=== PATIENT | male | born 1990 | race Caucasian/White ===

== ENCOUNTER 2016-09-27 00:55 | Inpatient (IN) ==
--- NOTE | 2016-09-27 01:43 | Emergency Department Note ---
Disposition Clinical Impression: Depression, Suicidal ideation, Noncompliance with medication regimen Disposition: Still a Patient Condition: Fair Instructions: Depression (ED), Suicide Prevention for Adults (ED), Anxiety (ED) Referrals: NO,PCP [Primary Care Provider] - Forms: ED Satisfaction Letter Time of Disposition: 05:55 Psych HPI - General Chief Complaint: ED Psychiatric Symptoms Stated Complaint: si Time Seen by Provider: 09/27/16 01:12 Source: patient Mode of arrival: private vehicle Limitations: no limitations Nursing Notes Reviewed: Yes Vital Signs Reviewed: Yes - History of Present Illness HPI Narrative: 25-year-old male presents to the emergency department with complaint of depression and suicidal ideation. Patient states "I just started thinking about a life and outlined it anymore." He denies any recent head injury. He denies any recent trauma. Pt complaint: suicidal ideation, feels depressed If medical clearance, reason: psychiatric condition Onset (ago): hour(s) Duration: constant, getting worse History of similar episodes: Yes Improves with: none Worsens with: none Associated Psychiatric Symptoms: depression, suicidal ideation Associated symptoms: Reports: denies other symptoms Traumatic symptoms: denies traumatic injury Treatments prior to arrival: none Self harm or harm to others: admits thoughts of self harm, denies having a plan - Related Data Home Medications Medication Instructions Recorded Confirmed Depakote 06/23/16 06/23/16 Previous Rx's Medication Instructions Recorded Sertraline [Zoloft] 50 mg PO DAILY #30 tablet 10/08/15 Ibuprofen [Motrin] 800 mg PO Q8HR PRN #30 tablet 06/23/16 Ondansetron HCl [Zofran] 4 mg PO Q6H #15 tablet 09/17/16 Dicyclomine [Bentyl] 10 mg PO QID PRN #20 capsule 09/23/16 Polyethylene Glycol 3350 17 gm PO ONCE PRN #3 powd.pack 09/23/16 Allergies Allergy/AdvReac Type Severity Reaction Status Date / Time No Known Allergies Allergy Verified 04/22/16 10:36 All systems ED: reviewed and negative except as stated. Constitutional: Denies: fever, chills Cardiovascular: Denies: chest pain Respiratory: Denies: cough, dyspnea Gastrointestinal: Denies: abdominal pain, nausea, vomiting Musculoskeletal: Denies: back pain, neck pain Integumentary: Denies: rash, abrasion, lesions Neurological: Denies: headache Psychiatric: Reports: anxiety, depression, suicidal thoughts. Denies: auditory hallucinations, visual hallucinations Past Medical History - Past Medical History Attestation: Yes The following information was validated with the patient. Source: patient, nursing notes reviewed Medical history: Reports: hypertension, other Surgical history: Reports: no surgical history Psychiatric history: Reports: anxiety, bipolar, depression, panic disorder - Social History Smoking Status: Current every day smoker Smokeless Tobacco Status: No Alcohol use: Reports: none Drug use: Reports: none Physical Exam - General Limitations: no limitations General appearance: alert, in no apparent distress - Head Head exam: atraumatic, normocephalic, normal inspection - Eye Eye exam: Present: normal appearance, PERRL - Neck Neck exam: Present: normal inspection, full ROM, trachea midline - Chest Chest inspection: Present: normal inspection, symmetric chest wall rise - Respiratory Respiratory exam: Present: normal lung sounds bilaterally. Absent: respiratory distress - Cardiovascular Cardiovascular exam: Present: regular rate, normal rhythm, normal heart sounds - Extremities Exam Extremities exam: Present: normal inspection, full ROM - Back Exam Back exam: Present: normal inspection, full ROM. Absent: tenderness - Neurological Exam Neurological exam: Present: alert, oriented X3 - Psychiatric Psychiatric exam: Present: depressed, flat affect, suicidal ideation. Absent: agitated, homicidal ideation - Skin Skin exam: Present: warm, dry, intact, normal color Course - Reevaluation(s) Reevaluation #1: Patient continues to rest comfortably in no acute distress. Depakote level was drawn. 1A is currently working on placement for the patient. Time: 05:55 Vital Signs Temperature 98.1 F 09/27/16 01:01 Pulse Rate 97 09/27/16 01:01 Respiratory Rate 18 09/27/16 01:01 Blood Pressure 120/84 09/27/16 01:01 O2 Sat by Pulse Oximetry 96 09/27/16 01:01 Temperature 98.1 F 09/27/16 01:01 Pulse Rate 97 09/27/16 01:01 Respiratory Rate 18 09/27/16 01:01 Blood Pressure 120/84 09/27/16 01:01 O2 Sat by Pulse Oximetry 96 09/27/16 01:01 Oxygen Delivery Oxygen Delivery Room Air Psych - Lab Data Lab results reviewed: Yes I reviewed the patient's lab results. Result diagrams: 09/27/16 01:37 09/27/16 01:37 Lab Results 09/27/16 09/27/16 09/27/16 Range/Units 01:37 01:37 01:50 WBC 12.2 H (4.3-11.1) K/mcL RBC 5.10 (4.19-5.50) M/mcL Hgb 15.0 (12.9-16.9) g/dL Hct 44.9 (37.5-50.1) % MCV 88.0 (83.0-100.0) fL MCH 29.4 (28.0-33.3) pg MCHC 33.4 (31.6-35.5) g/dL RDW 11.9 (11.5-14.5) % Plt Count 275 (140-400) K/mcL MPV 10.9 (9.4-12.4) fL Immature Gran % 0.6 (0-4) % Seg Neutrophils % 54.4 % Lymphocytes % 31.0 % Monocytes % 7.1 % Eosinophils % 6.0 % Basophils % 0.9 % Neutrophils # 6.6 (1.6-8.9) K/mcL Lymphocytes # 3.8 (0.6-4.6) K/mcL Monocytes # 0.9 (0.0-1.3) K/mcL Eosinophils # 0.7 H (0.0-0.6) K/mcL Basophils # 0.1 (0.0-0.2) K/mcL Immature Plt Fraction 5.8 (1.1-6.1) % Sodium 138 (136-145) mEq/L Potassium 3.5 (3.5-4.5) mEq/L Chloride 106 (98-109) mEq/L Carbon Dioxide 22 (19-29) mEq/L BUN 11 (8-26) mg/dL Creatinine 0.96 (0.72-1.25) mg/dL Est GFR ( Amer) > 60 (> 60) Est GFR (Non-Af Amer) > 60 (> 60) BUN/Creatinine Ratio 11 (6-26) Glucose 93 (70-99) mg/dL Calculated Osmolality 285 (280-300) Calcium 9.5 (8.6-10.8) mg/dL Urine Color Yellow (Yellow) Urine Clarity Clear (Clear) Urine pH 5.5 (5.0-8.0) pH Units Ur Specific [place] > 1.030 H (1.010-1.025) Urine Protein Negative (Neg-Trace) mg/dL Urine Glucose (UA) Normal (Normal) mg/dL Urine Ketones Trace H (Negative) mg/dL Urine Blood Negative (Negative) Urine Nitrite Negative (Negative) Urine Bilirubin Small H (Negative) Urine Urobilinogen Normal (Normal) mg/dL Ur Leukocyte Esterase Negative (Negative) Salicylates < 5.0 L (15-30) mg/dL Urine Opiates Screen (Acnwpd=493) ng/mL Acetaminophen < 1.0 L (10-30) mcg/mL Ur Barbiturates Screen (Mtjwkt=893) ng/mL Valproic Acid < 2.00 L (50-100) mcg/mL Ur Phencyclidine Scrn (Cutoff=25) ng/mL Ur Amphetamines Screen (Apyjth=4253) ng/mL U Benzodiazepines Scrn (Rkbnas=052) ng/mL Urine Cocaine Screen (Cutoff= 300) ng/mL U Marijuana (THC) Screen (Cutoff = 50) ng/mL Ethyl Alcohol < 10 (0-10) mg/dL 09/27/16 Range/Units 01:50 WBC (4.3-11.1) K/mcL RBC (4.19-5.50) M/mcL Hgb (12.9-16.9) g/dL Hct (37.5-50.1) % MCV (83.0-100.0) fL MCH (28.0-33.3) pg MCHC (31.6-35.5) g/dL RDW (11.5-14.5) % Plt Count (140-400) K/mcL MPV (9.4-12.4) fL Immature Gran % (0-4) % Seg Neutrophils % % Lymphocytes % % Monocytes % % Eosinophils % % Basophils % % Neutrophils # (1.6-8.9) K/mcL Lymphocytes # (0.6-4.6) K/mcL Monocytes # (0.0-1.3) K/mcL Eosinophils # (0.0-0.6) K/mcL Basophils # (0.0-0.2) K/mcL Immature Plt Fraction (1.1-6.1) % Sodium (136-145) mEq/L Potassium (3.5-4.5) mEq/L Chloride (98-109) mEq/L Carbon Dioxide (19-29) mEq/L BUN (8-26) mg/dL Creatinine (0.72-1.25) mg/dL Est GFR ( Amer) (> 60) Est GFR (Non-Af Amer) (> 60) BUN/Creatinine Ratio (6-26) Glucose (70-99) mg/dL Calculated Osmolality (280-300) Calcium (8.6-10.8) mg/dL Urine Color (Yellow) Urine Clarity (Clear) Urine pH (5.0-8.0) pH Units Ur Specific [place] (1.010-1.025) Urine Protein (Neg-Trace) mg/dL Urine Glucose (UA) (Normal) mg/dL Urine Ketones (Negative) mg/dL Urine Blood (Negative) Urine Nitrite (Negative) Urine Bilirubin (Negative) Urine Urobilinogen (Normal) mg/dL Ur Leukocyte Esterase (Negative) Salicylates (15-30) mg/dL Urine Opiates Screen Negative (Ktddpv=073) ng/mL Acetaminophen (10-30) mcg/mL Ur Barbiturates Screen Negative (Tnvcsl=651) ng/mL Valproic Acid (50-100) mcg/mL Ur Phencyclidine Scrn Negative (Cutoff=25) ng/mL Ur Amphetamines Screen Negative (Kuywrh=1787) ng/mL U Benzodiazepines Scrn Negative (Zofkug=545) ng/mL Urine Cocaine Screen Negative (Cutoff= 300) ng/mL U Marijuana (THC) Screen Negative (Cutoff = 50) ng/mL Ethyl Alcohol (0-10) mg/dL Psychiatric Medical Clearance - Medical Clearance Checklist Medical History: No Social History Section defined Current Vitals: Last Vital Signs Temp 98.1 F 09/27/16 01:01 Pulse 97 09/27/16 01:01 Resp 18 09/27/16 01:01 BP 120/84 09/27/16 01:01 Pulse Ox 96 09/27/16 01:01 Psychiatric Lab Panel: Drug Levels and Toxicity 09/27/16 09/27/16 01:37 01:50 Urine Opiates Screen Negative Acetaminophen < 1.0 L Ur Barbiturates Screen Negative Ur Phencyclidine Scrn Negative Ur Amphetamines Screen Negative U Benzodiazepines Scrn Negative Urine Cocaine Screen Negative U Marijuana (THC) Screen Negative Ethyl Alcohol < 10 Abnormal Labs: Abnormal lab results WBC 12.2 K/mcL (4.3-11.1) H 09/27/16 01:37 Eosinophils # 0.7 K/mcL (0.0-0.6) H 09/27/16 01:37 Ur Specific [place] > 1.030 (1.010-1.025) H 09/27/16 01:50 Urine Ketones Trace mg/dL (Negative) H 09/27/16 01:50 Urine Bilirubin Small (Negative) H 09/27/16 01:50 Salicylates < 5.0 mg/dL (15-30) L 09/27/16 01:37 Acetaminophen < 1.0 mcg/mL (10-30) L 09/27/16 01:37 Valproic Acid < 2.00 mcg/mL (50-100) L 09/27/16 01:37 Statement of Medical Clearance: I have evaluated the patient, reviewed diagnostic information, and certify that the patient's medical condition is sufficiently stable that transfer to the psychiatric unit does not pose a significant risk of deterioration. Attestation Statement - Attestation Attestation: I personally interviewed and examined this patient and my medical decision- making was reviewed with the DELANEY Reid Chong. I agree with the documented findings, disposition and treatment plan as described except to the extent set forth below. Patient is 25-year-old white male with a history of bipolar disorder, depression , prior suicidal ideation with attempt is been hospitalized in the past for similar complaints. Patient is here stating he was noncompliant with his medication rather regimen and has been having worsening depression and suicidal ideation. Patient denies any attempts to harm himself, no ingestions, no other physical complaints. Agree with patient's physical exam findings as documented. Patient's labs unremarkable. Patient is medically cleared for further psychiatric evaluation and treatment. One a consult in to see patient who agreed with admission and will plan to place the patient as there is currently no male bed available here at [facility]. They anticipate morning discharges to place the patient here.
[2016-09-27 01:49] LABS: Basophils # 0.1 K/mcL (0.0-0.2); Basophils % 0.9 %; Eosinophils # 0.7 K/mcL (0.0-0.6); Hematocrit 44.9 % (37.5-50.1); Immature Granulocytes % 0.6 % (0-4); Immature Platelets 5.8 % (1.1-6.1); Lymphocytes # 3.8 K/mcL (0.6-4.6); Mean Corpuscular HGB Conc 33.4 g/dL (31.6-35.5); Mean Corpuscular Hemoglobin 29.4 pg (28.0-33.3); Mean Platelet Volume 10.9 fL (9.4-12.4); Monocytes # 0.9 K/mcL (0.0-1.3); Monocytes % 7.1 %; Neutrophils # 6.6 K/mcL (1.6-8.9); Platelet Count 275 K/mcL (140-400); Red Cell Distribution Width 11.9 % (11.5-14.5); Segmented Neutrophils % 54.4 %
[2016-09-27 01:59] LABS: Bilirubin,Urine Small (Negative); Blood,Urine Negative (Negative); Clarity,Urine Clear (Clear); Color,Urine Yellow (Yellow); Glucose,Urine (UA) Normal (Normal); Ketones,Urine Trace mg/dL (Negative); Leukocyte Esterase,Urine Negative (Negative); Nitrite,Urine Negative (Negative); PH,Urine 5.5 pH Units (5.0-8.0); Protein,Urine Negative (Neg-Trace); Specific Gravity,Urine > 1.030 (1.010-1.025); Urobilinogen,Urine Normal (Normal)
[2016-09-27 02:03] LABS: BUN/Creatinine Ratio 11 (6-26); Blood Urea Nitrogen 11 mg/dL (8-26); Calcium 9.5 mg/dL (8.6-10.8); Carbon Dioxide 22 mEq/L (19-29); Chloride 106 mEq/L (98-109); Glucose 93 mg/dL (70-99); Osmolality,Calculated 285 (280-300); Potassium 3.5 mEq/L (3.5-4.5); Sodium 138 mEq/L (136-145); eGFR For African Americans > 60 (> 60); eGFR For Non-African Americans > 60 (> 60)
[2016-09-27 02:05] LABS: Acetaminophen < 1.0 mcg/mL (10-30); Ethanol < 10 mg/dL (0-10); Salicylate < 5.0 mg/dL (15-30)
[2016-09-27 02:05] LABS: Amphetamine Screen,Urine Negative ng/mL (Cutoff=1000); Barbiturate Screen,Urine Negative ng/mL (Cutoff=200); Benzodiazepines Screen,Urine Negative ng/mL (Cutoff=200); Cannabinoid Screen,Urine Negative ng/mL (Cutoff = 50); Cocaine Screen,Urine Negative ng/mL (Cutoff= 300); Opiate Screen,Urine Negative ng/mL (Cutoff=300); Phencyclidine Screen,Urine Negative ng/mL (Cutoff=25)
[2016-09-27 04:58] LABS: Valproate < 2.00 mcg/mL (50-100)
--- NOTE | 2016-09-27 07:19 | Emergency Department Note ---
Disposition Clinical Impression: Suicidal ideation, Noncompliance with medication regimen Depression Qualifiers: Depression Type: unspecified Qualified Code(s): F32.9 - Major depressive disorder, single episode, unspecified Disposition: Admitted As Inpatient Condition: Fair Instructions: Depression (ED), Suicide Prevention for Adults (ED), Anxiety (ED) Referrals: NO,PCP [Primary Care Provider] - Forms: ED Satisfaction Letter General Adult HPI - General Chief complaint: ED Psychiatric Symptoms Stated complaint: si Time Seen by Provider: 09/27/16 01:12 Source: patient Mode of arrival: private vehicle Limitations: no limitations - History of Present Illness Pain Scale: 0 - Related Data Home Medications Medication Instructions Recorded Confirmed Aripiprazole Lauroxil [Aristada] 882 mg IM QMONTH 09/27/16 09/27/16 Cetirizine HCl [All Day Allergy] 10 mg PO QPM 09/27/16 09/27/16 Divalproex (24 HR) [Depakote ER 1,000 mg PO HS 09/27/16 09/27/16 (24 HR)] Lisinopril 2.5 mg PO QAM 09/27/16 09/27/16 Loratadine [Allergy Relief] 10 mg PO QAM 09/27/16 09/27/16 Quetiapine Fumarate [SEROquel] 25 mg PO HS 09/27/16 09/27/16 Ranitidine HCl [Acid Mechanic Foreman] 150 mg PO BID 09/27/16 09/27/16 hydrOXYzine pamoate [HydrOXYzine 25 mg PO TID PRN 09/27/16 09/27/16 Pamoate] Allergies Allergy/AdvReac Type Severity Reaction Status Date / Time No Known Allergies Allergy Verified 04/22/16 10:36 Constitutional: Denies: fever, chills Cardiovascular: Denies: chest pain Respiratory: Denies: cough, dyspnea Gastrointestinal: Denies: abdominal pain, nausea, vomiting Musculoskeletal: Denies: back pain, neck pain Integumentary: Denies: rash, abrasion, lesions Neurological: Denies: headache Psychiatric: Reports: anxiety, depression, suicidal thoughts. Denies: auditory hallucinations, visual hallucinations Past Medical History - Past Medical History Medical history: Reports: hypertension, other Surgical history: Reports: no surgical history Psychiatric history: Reports: anxiety, bipolar, depression, panic disorder - Social History Smoking Status: Current every day smoker Smokeless Tobacco Status: No Alcohol use: Reports: none Drug use: Reports: none Physical Exam - General Limitations: no limitations General appearance: alert, in no apparent distress Course Vital Signs Temperature 98.1 F 09/27/16 01:01 Pulse Rate 97 09/27/16 01:01 Respiratory Rate 18 09/27/16 01:01 Blood Pressure 120/84 09/27/16 01:01 O2 Sat by Pulse Oximetry 96 09/27/16 01:01 Temperature 98.0 F 09/27/16 07:30 Pulse Rate 69 09/27/16 07:30 Respiratory Rate 16 09/27/16 07:30 Blood Pressure 133/82 09/27/16 07:30 O2 Sat by Pulse Oximetry 99 09/27/16 07:30 Oxygen Delivery Oxygen Delivery Room Air Medical Decision Making - Lab Data Result diagrams: 09/27/16 01:37 09/27/16 01:37 Lab Results 09/27/16 09/27/16 09/27/16 Range/Units 01:37 01:37 01:50 WBC 12.2 H (4.3-11.1) K/mcL RBC 5.10 (4.19-5.50) M/mcL Hgb 15.0 (12.9-16.9) g/dL Hct 44.9 (37.5-50.1) % MCV 88.0 (83.0-100.0) fL MCH 29.4 (28.0-33.3) pg MCHC 33.4 (31.6-35.5) g/dL RDW 11.9 (11.5-14.5) % Plt Count 275 (140-400) K/mcL MPV 10.9 (9.4-12.4) fL Immature Gran % 0.6 (0-4) % Seg Neutrophils % 54.4 % Lymphocytes % 31.0 % Monocytes % 7.1 % Eosinophils % 6.0 % Basophils % 0.9 % Neutrophils # 6.6 (1.6-8.9) K/mcL Lymphocytes # 3.8 (0.6-4.6) K/mcL Monocytes # 0.9 (0.0-1.3) K/mcL Eosinophils # 0.7 H (0.0-0.6) K/mcL Basophils # 0.1 (0.0-0.2) K/mcL Immature Plt Fraction 5.8 (1.1-6.1) % Sodium 138 (136-145) mEq/L Potassium 3.5 (3.5-4.5) mEq/L Chloride 106 (98-109) mEq/L Carbon Dioxide 22 (19-29) mEq/L BUN 11 (8-26) mg/dL Creatinine 0.96 (0.72-1.25) mg/dL Est GFR ( Amer) > 60 (> 60) Est GFR (Non-Af Amer) > 60 (> 60) BUN/Creatinine Ratio 11 (6-26) Glucose 93 (70-99) mg/dL Calculated Osmolality 285 (280-300) Calcium 9.5 (8.6-10.8) mg/dL Urine Color Yellow (Yellow) Urine Clarity Clear (Clear) Urine pH 5.5 (5.0-8.0) pH Units Ur Specific [place] > 1.030 H (1.010-1.025) Urine Protein Negative (Neg-Trace) mg/dL Urine Glucose (UA) Normal (Normal) mg/dL Urine Ketones Trace H (Negative) mg/dL Urine Blood Negative (Negative) Urine Nitrite Negative (Negative) Urine Bilirubin Small H (Negative) Urine Urobilinogen Normal (Normal) mg/dL Ur Leukocyte Esterase Negative (Negative) Salicylates < 5.0 L (15-30) mg/dL Urine Opiates Screen (Afqcvk=166) ng/mL Acetaminophen < 1.0 L (10-30) mcg/mL Ur Barbiturates Screen (Qnvvau=189) ng/mL Valproic Acid < 2.00 L (50-100) mcg/mL Ur Phencyclidine Scrn (Cutoff=25) ng/mL Ur Amphetamines Screen (Oryciy=5126) ng/mL U Benzodiazepines Scrn (Znuazg=022) ng/mL Urine Cocaine Screen (Cutoff= 300) ng/mL U Marijuana (THC) Screen (Cutoff = 50) ng/mL Ethyl Alcohol < 10 (0-10) mg/dL 09/27/16 Range/Units 01:50 WBC (4.3-11.1) K/mcL RBC (4.19-5.50) M/mcL Hgb (12.9-16.9) g/dL Hct (37.5-50.1) % MCV (83.0-100.0) fL MCH (28.0-33.3) pg MCHC (31.6-35.5) g/dL RDW (11.5-14.5) % Plt Count (140-400) K/mcL MPV (9.4-12.4) fL Immature Gran % (0-4) % Seg Neutrophils % % Lymphocytes % % Monocytes % % Eosinophils % % Basophils % % Neutrophils # (1.6-8.9) K/mcL Lymphocytes # (0.6-4.6) K/mcL Monocytes # (0.0-1.3) K/mcL Eosinophils # (0.0-0.6) K/mcL Basophils # (0.0-0.2) K/mcL Immature Plt Fraction (1.1-6.1) % Sodium (136-145) mEq/L Potassium (3.5-4.5) mEq/L Chloride (98-109) mEq/L Carbon Dioxide (19-29) mEq/L BUN (8-26) mg/dL Creatinine (0.72-1.25) mg/dL Est GFR ( Amer) (> 60) Est GFR (Non-Af Amer) (> 60) BUN/Creatinine Ratio (6-26) Glucose (70-99) mg/dL Calculated Osmolality (280-300) Calcium (8.6-10.8) mg/dL Urine Color (Yellow) Urine Clarity (Clear) Urine pH (5.0-8.0) pH Units Ur Specific [place] (1.010-1.025) Urine Protein (Neg-Trace) mg/dL Urine Glucose (UA) (Normal) mg/dL Urine Ketones (Negative) mg/dL Urine Blood (Negative) Urine Nitrite (Negative) Urine Bilirubin (Negative) Urine Urobilinogen (Normal) mg/dL Ur Leukocyte Esterase (Negative) Salicylates (15-30) mg/dL Urine Opiates Screen Negative (Xrobhs=678) ng/mL Acetaminophen (10-30) mcg/mL Ur Barbiturates Screen Negative (Rhqiig=065) ng/mL Valproic Acid (50-100) mcg/mL Ur Phencyclidine Scrn Negative (Cutoff=25) ng/mL Ur Amphetamines Screen Negative (Rdrtcm=4969) ng/mL U Benzodiazepines Scrn Negative (Estfxd=221) ng/mL Urine Cocaine Screen Negative (Cutoff= 300) ng/mL U Marijuana (THC) Screen Negative (Cutoff = 50) ng/mL Ethyl Alcohol (0-10) mg/dL Attestation Statement - Attestation Attestation: Care assumed from Dr. Paulina Chong at 7 AM pending psychiatric placement/ admission. Patient sleeping on exam. The patient was cleared medically by the previous team 13:29: 1A accepts admission
[2016-09-27] MEDS ORDERED: MOM Conc 10 ML UD.LIQ PO PRN (15:41)
[2016-09-27] MEDS ORDERED: Haloperidol Lactate 5 MG/ML VIAL IM PRN (15:41)
[2016-09-27] MEDS ORDERED: *HR* LORazepam 2 MG/ML VIAL IM PRN (15:41)
[2016-09-27] MEDS ORDERED: (Aripiprazole Lauroxil [Aristada] 882 MG) IM SCH (16:00)
[2016-09-27] MEDS: Loratadine 10 MG TABLET PO SCH (17:20)
[2016-09-27] MEDS: Mag Hydrox/Al Hydrox/Simeth 30 ML UDC PO PRN (17:20)
[2016-09-27] MEDS: Divalproex (24 HR) 500 MG TABLET PO SCH (21:39)
[2016-09-27] MEDS: Famotidine 20 MG TABLET PO SCH (21:40)
[2016-09-27] MEDS: traZODone 50 MG TABLET PO PRN (21:40)
[2016-09-27] MEDS: Acetaminophen 325 MG TABLET PO PRN (21:40)
[2016-09-27] MEDS: Nicotine 2 MG GUM BC PRN (21:41)
[2016-09-28] MEDS: Famotidine 20 MG TABLET PO SCH ×2 (08:58→20:41)
[2016-09-28] MEDS: Loratadine 10 MG TABLET PO SCH ×2 (08:58→18:22)
[2016-09-28] MEDS: Nicotine 2 MG GUM BC PRN ×3 (09:10→20:50)
--- NOTE | 2016-09-28 10:24 | Psychiatry History & Physical ---
Date of Encounter: 09/28/16 Time of Encounter: 10:00 History of Present Illness Patient Stated Chief Complaint: Suicidal ideation Medicare Admission Attestation: For traditional Medicare patients the provided hospital inpatient services are reasonable and necessary and in the case of services not specified as inpatient -only under 42 CFR 419.22 (n), that they are appropriately provided as inpatient services in accordance 42 CFR 412.3. For Critical [facility] the patient may reasonably be expected to be discharged or transferred to a hospital within 96 hours after admission to the Critical [facility] Hospital. Admitted From: Emergency Dept History of Present Illness: Mr. Bass is a 25 year old male admitted from the emergency department for suicidal ideation. Patient stopped taking his medication for the last several months prior to admission and was having increasing symptoms of depression and paranoia and anxiety he was having suicidal ideation with plan to electrocute himself in the bathtub. Patient had long history of psychiatric treatment for depression and bipolar disorder and anxiety. He is followed as outpatient [facility]. Patient lives alone and self isolated and he is single never and has no children and socially shy. Patient smoke one pack per day cigarettes, consuming large amount caffeine and energy drinks and uses alcohol occasionally. UDS was negative for drugs. His Depakote level was undetected indicating noncompliance with medication. Patient complained of hypersomnia and depression like a motivation. Past Med Surg Social Fam HX - Past Medical History Medical history: hypertension, other - Past Psychiatric History Psychiatric history: Reports: anxiety, bipolar, depression, prior suicide attempt, previous psychiatric hospitalization Past psychiatric history details: Most recent hospitalization at [facility] a few months ago. - Past Surgical History Surgical History: no surgical history - Social History Smoking Status: Current every day smoker Smokeless Tobacco Status: No Alcohol use: none Drug use: none Medications & Allergies Aripiprazole Lauroxil [Aristada] 882 mg IM QMONTH 09/27/16 [History] Cetirizine HCl [All Day Allergy] 10 mg PO QPM 09/27/16 [History] Divalproex (24 HR) [Depakote ER (24 HR)] 1,000 mg PO HS 09/27/16 [History] Lisinopril 2.5 mg PO QAM 09/27/16 [History] Loratadine [Allergy Relief] 10 mg PO QAM 09/27/16 [History] Quetiapine Fumarate [SEROquel] 25 mg PO HS 09/27/16 [History] Ranitidine HCl [Acid Chief Radiology] 150 mg PO BID 09/27/16 [History] hydrOXYzine pamoate [HydrOXYzine Pamoate] 25 mg PO TID PRN 09/27/16 [History] Allergies No Known Allergies Allergy (Verified 04/22/16 10:36) Review of Systems Psychiatric: Reports: depression, anxiety, abnormal sleep pattern, suicidal ideation Mental Status Exam Patient orientation: Yes Person, Yes Time, Yes Place Level of alertness: Alert, Sedated Patient appearance: Appropriate, Well Groomed, Unkempt, Disheveled Behavior: calm, cooperative, guarded, withdrawn Psychomotor activity: Slowed Eye contact: Minimal Contact Mood description: Depressed Affect description: congruent with mood, constricted, blunted, flat, anxious Speech pattern: Normal rate, Normal rhythm, Normal tone, Clear, Slowed Speech volume: Soft/Quiet Thought process: Linear, Goal Oriented, Thought Blocking, Slowed Thinking Thought content: Yes Suicidal ideation, No Homicidal ideation, No Overt delusions, Yes Preoccupation, Yes Paranoid delusion, Yes Obsessive thoughts Perceptual disturbances: Yes Auditory hallucinations, No Visual hallucinations Attention span: Unable to Focus Memory description: Grossly Intact Patient reliability: Reliable Historian Intelligence estimate: Average Judgment: Limited Insight: Partial Results - Vital Signs Vital signs: Temp Pulse Resp BP Pulse Ox 97.4 F L 77 16 150/82 99 09/28/16 09:00 09/28/16 09:00 09/28/16 09:00 09/28/16 09:00 09/27/16 07:30 - Labs Labs: Laboratory Last Values WBC 12.2 K/mcL (4.3-11.1) H 09/27/16 01:37 RBC 5.10 M/mcL (4.19-5.50) 09/27/16 01:37 Hgb 15.0 g/dL (12.9-16.9) 09/27/16 01:37 Hct 44.9 % (37.5-50.1) 09/27/16 01:37 MCV 88.0 fL (83.0-100.0) 09/27/16 01:37 MCH 29.4 pg (28.0-33.3) 09/27/16 01:37 MCHC 33.4 g/dL (31.6-35.5) 09/27/16 01:37 RDW 11.9 % (11.5-14.5) 09/27/16 01:37 Plt Count 275 K/mcL (140-400) 09/27/16 01:37 MPV 10.9 fL (9.4-12.4) 09/27/16 01:37 Immature Gran % 0.6 % (0-4) 09/27/16 01:37 Seg Neutrophils % 54.4 % 09/27/16 01:37 Lymphocytes % 31.0 % 09/27/16 01:37 Monocytes % 7.1 % 09/27/16 01:37 Eosinophils % 6.0 % 09/27/16 01:37 Basophils % 0.9 % 09/27/16 01:37 Neutrophils # 6.6 K/mcL (1.6-8.9) 09/27/16 01:37 Lymphocytes # 3.8 K/mcL (0.6-4.6) 09/27/16 01:37 Monocytes # 0.9 K/mcL (0.0-1.3) 09/27/16 01:37 Eosinophils # 0.7 K/mcL (0.0-0.6) H 09/27/16 01:37 Basophils # 0.1 K/mcL (0.0-0.2) 09/27/16 01:37 Immature Plt Fraction 5.8 % (1.1-6.1) 09/27/16 01:37 Sodium 138 mEq/L (136-145) 09/27/16 01:37 Potassium 3.5 mEq/L (3.5-4.5) 09/27/16 01:37 Chloride 106 mEq/L (98-109) 09/27/16 01:37 Carbon Dioxide 22 mEq/L (19-29) 09/27/16 01:37 BUN 11 mg/dL (8-26) 09/27/16 01:37 Creatinine 0.96 mg/dL (0.72-1.25) 09/27/16 01:37 Est GFR ( Amer) > 60 (> 60) 09/27/16 01:37 Est GFR (Non-Af Amer) > 60 (> 60) 09/27/16 01:37 BUN/Creatinine Ratio 11 (6-26) 09/27/16 01:37 Glucose 93 mg/dL (70-99) 09/27/16 01:37 Calculated Osmolality 285 (280-300) 09/27/16 01:37 Calcium 9.5 mg/dL (8.6-10.8) 09/27/16 01:37 Urine Color Yellow (Yellow) 09/27/16 01:50 Urine Clarity Clear (Clear) 09/27/16 01:50 Urine pH 5.5 pH Units (5.0-8.0) 09/27/16 01:50 Ur Specific Roland > 1.030 (1.010-1.025) H 09/27/16 01:50 Urine Protein Negative mg/dL (Neg-Trace) 09/27/16 01:50 Urine Glucose (UA) Normal mg/dL (Normal) 09/27/16 01:50 Urine Ketones Trace mg/dL (Negative) H 09/27/16 01:50 Urine Blood Negative (Negative) 09/27/16 01:50 Urine Nitrite Negative (Negative) 09/27/16 01:50 Urine Bilirubin Small (Negative) H 09/27/16 01:50 Urine Urobilinogen Normal mg/dL (Normal) 09/27/16 01:50 Ur Leukocyte Esterase Negative (Negative) 09/27/16 01:50 Salicylates < 5.0 mg/dL (15-30) L 09/27/16 01:37 Urine Opiates Screen Negative ng/mL (Vudghd=238) 09/27/16 01:50 Acetaminophen < 1.0 mcg/mL (10-30) L 09/27/16 01:37 Ur Barbiturates Screen Negative ng/mL (Afnsku=477) 09/27/16 01:50 Valproic Acid < 2.00 mcg/mL (50-100) L 09/27/16 01:37 Ur Phencyclidine Scrn Negative ng/mL (Cutoff=25) 09/27/16 01:50 Ur Amphetamines Screen Negative ng/mL (Geeict=0551) 09/27/16 01:50 U Benzodiazepines Scrn Negative ng/mL (Ukxekg=871) 09/27/16 01:50 Urine Cocaine Screen Negative ng/mL (Cutoff= 300) 09/27/16 01:50 U Marijuana (THC) Screen Negative ng/mL (Cutoff = 50) 09/27/16 01:50 Ethyl Alcohol < 10 mg/dL (0-10) 09/27/16 01:37 Assessment and Plan (1) Bipolar I disorder with mixed features Current visit: No Status: Acute Plan: Admit inpatient for safety and stabilization, Close observation, Suicide Precautions per unit protocol, Encourage participation in unit milieu, Group Therapy, Monitor sleep, Monitor appetite Additional Plan: Will add Wellbutrin SR 150 mg daily benefits and side effects were discussed she is agreeable to start and will monitor. Risks, benefits, side effects, alternatives discussed w/pt: Yes Patient agreeable to treatment: Yes Estimated Length of Stay (Days): 5
[2016-09-28] MEDS: BuPROPion XL (24 HR) 150 MG TABLET PO SCH (10:55)
[2016-09-28] MEDS: hydrOXYzine pamoate 25 MG CAPSULE PO PRN ×2 (16:27→22:53)
[2016-09-28] MEDS: *HR* LORazepam 1 MG TABLET PO PRN (18:25)
[2016-09-28] MEDS: Divalproex (24 HR) 500 MG TABLET PO SCH (20:40)
[2016-09-28] MEDS: Acetaminophen 325 MG TABLET PO PRN (20:40)
[2016-09-28] MEDS: traZODone 50 MG TABLET PO PRN (20:41)
[2016-09-29] MEDS: Loratadine 10 MG TABLET PO SCH ×2 (09:48→17:05)
[2016-09-29] MEDS: Famotidine 20 MG TABLET PO SCH ×2 (09:48→20:08)
[2016-09-29] MEDS: BuPROPion XL (24 HR) 150 MG TABLET PO SCH (09:48)
[2016-09-29] MEDS: Nicotine 2 MG GUM BC PRN ×2 (09:53→17:05)
[2016-09-29] MEDS: Acetaminophen 325 MG TABLET PO PRN ×2 (11:26→20:08)
--- NOTE | 2016-09-29 12:49 | Psychiatry Progress Note ---
Date of Encounter: 09/29/16 Time of Encounter: 12:30 Subjective Interval history: Patient seen for follow-up. He reports feeling tired but he attended some groups. He is tolerating medication still feeling depressed and having suicidal thoughts on and off. He is compliant with medication. He was educated about medication treatments and treatment goals. He was encouraged to stay busy and participated in activities. Review of Systems Psychiatric: Reports: depression, anxiety, abnormal sleep pattern, suicidal ideation Objective: Exam Patient orientation: Yes Person, Yes Time, Yes Place Level of alertness: Alert, Sedated Patient appearance: Appropriate, Unkempt Behavior: calm, cooperative, withdrawn Psychomotor activity: Slowed Eye contact: Minimal Contact Mood description: Depressed Affect description: congruent with mood, constricted, blunted Speech pattern: Normal rate, Normal rhythm, Normal tone, Limited Speech volume: Normal Thought process: Linear, Goal Oriented, [place] Thought content: Yes Suicidal ideation, No Homicidal ideation, No Overt delusions Perceptual disturbances: No Auditory hallucinations, No Visual hallucinations Judgment: Fair Insight: Partial Results - Vital Signs Vital Signs: Temp Pulse Resp BP Pulse Ox 97 F L 74 18 134/92 99 09/29/16 09:00 09/29/16 09:00 09/29/16 09:00 09/29/16 09:00 09/27/16 07:30 Assessment and Plan (1) Bipolar I disorder with mixed features Current visit: No Status: Acute Plan: Continue hospitalization, Close observation, Suicide Precautions per unit protocol, Encourage participation in unit milieu, Group Therapy, Monitor sleep, Monitor appetite Additional Plan: We will increase Wellbutrin XL to 300 mg daily. Risks, benefits, side effects, alternatives discussed w/pt: Yes Patient agreeable to treatment: Yes Consult Discharge Plan - Plan [facility] 11:00 am (The above appointment is with [facility] for counseling. You will also see Lurdes Pandey on 11/03/2016 at 9: 30am.)
[2016-09-29] MEDS: hydrOXYzine pamoate 25 MG CAPSULE PO PRN (17:05)
[2016-09-29] MEDS: Divalproex (24 HR) 500 MG TABLET PO SCH (20:08)
[2016-09-29] MEDS: traZODone 50 MG TABLET PO PRN (23:27)
[2016-09-30] MEDS: BuPROPion XL (24 HR) 150 MG TABLET PO SCH (08:07)
[2016-09-30] MEDS: Famotidine 20 MG TABLET PO SCH ×2 (08:08→20:32)
[2016-09-30] MEDS: Nicotine 2 MG GUM BC PRN ×3 (08:08→20:31)
[2016-09-30] MEDS: Loratadine 10 MG TABLET PO SCH ×2 (08:08→17:12)
[2016-09-30] MEDS: hydrOXYzine pamoate 25 MG CAPSULE PO PRN (12:15)
--- NOTE | 2016-09-30 12:52 | Psychiatry Progress Note ---
Date of Encounter: 09/30/16 Time of Encounter: 12:49 Subjective Interval history: Patient is seen for follow-up. Staff report he is more active and getting up earlier. On admission he was complaining of hypersomnia. He is tolerating Wellbutrin and denies any side effects. He denies suicidal ideation and auditory hallucination. He plans to make changes to his daily activities after discharge from the hospital including exercise and walking in addition to his part-time job. Review of Systems Psychiatric: Reports: depression, anxiety, abnormal sleep pattern, suicidal ideation Objective: Exam Patient orientation: Yes Person, Yes Time, Yes Place Level of alertness: Alert Patient appearance: Appropriate, Well Groomed Behavior: calm, cooperative, guarded Psychomotor activity: Slowed Eye contact: Minimal Contact Mood description: Depressed, Anxious Affect description: congruent with mood, constricted, anxious Speech pattern: Normal rate, Normal rhythm, Normal tone, Limited Speech volume: Normal Thought process: Linear, Goal Oriented Thought content: No Suicidal ideation, No Homicidal ideation, No Overt delusions Perceptual disturbances: No Auditory hallucinations, No Visual hallucinations Judgment: Fair Insight: Partial Results - Vital Signs Vital Signs: Temp Pulse Resp BP Pulse Ox 97.6 F 90 16 131/89 99 09/30/16 09:00 09/30/16 09:00 09/30/16 09:00 09/30/16 09:00 09/27/16 07:30 Assessment and Plan (1) Bipolar I disorder with mixed features Current visit: No Status: Acute Plan: Continue hospitalization, Close observation, Suicide Precautions per unit protocol, Encourage participation in unit milieu, Group Therapy, Monitor sleep, Monitor appetite Additional Plan: We will check Depakote level on Sunday Risks, benefits, side effects, alternatives discussed w/pt: Yes Patient agreeable to treatment: Yes Consult Discharge Plan - Plan Referrals: [facility] [Outside] - 10/04/16 11:00 am (The above appointment is with [facility] for counseling. You will also see Lurdes Pandey on 11/03/2016 at 9: 30am.)
[2016-09-30] MEDS: Acetaminophen 325 MG TABLET PO PRN ×2 (15:13→20:31)
[2016-09-30] MEDS: traZODone 50 MG TABLET PO PRN (20:32)
[2016-09-30] MEDS: Divalproex (24 HR) 500 MG TABLET PO SCH (20:32)
[2016-10-01] MEDS: Loratadine 10 MG TABLET PO SCH ×2 (08:51→17:40)
[2016-10-01] MEDS: BuPROPion XL (24 HR) 150 MG TABLET PO SCH (08:51)
[2016-10-01] MEDS: Famotidine 20 MG TABLET PO SCH ×2 (08:51→20:57)
[2016-10-01] MEDS: Acetaminophen 325 MG TABLET PO PRN ×3 (08:56→20:57)
--- NOTE | 2016-10-01 10:19 | Psychiatry Progress Note ---
Date of Encounter: 10/01/16 Time of Encounter: 10:16 Subjective Interval history: Patient is seen for follow-up . He reports improvement level of energy, not depressed and less anxious. Staff report he is more interactive and participated in groups and compliant with medication. Denies suicidal thoughts or auditory hallucinations. Motivated to make changes for his daily activities. He is interested in increasing his social skills and not avoid socialization. Review of Systems Psychiatric: Reports: depression, anxiety, abnormal sleep pattern, suicidal ideation Objective: Exam Patient orientation: Yes Person, Yes Time, Yes Place Level of alertness: Alert Patient appearance: Appropriate, Well Groomed Behavior: calm, cooperative, anxious Psychomotor activity: Normal Eye contact: Maintains Eye Contact Mood description: Euthymic/stable, Anxious Affect description: congruent with mood, constricted Speech pattern: Normal rate, Normal rhythm, Normal tone Speech volume: Normal Thought process: Linear, Goal Oriented Thought content: No Suicidal ideation, No Homicidal ideation, No Overt delusions Perceptual disturbances: No Auditory hallucinations, No Visual hallucinations Judgment: Fair Insight: Partial Results - Vital Signs Vital Signs: Temp Pulse Resp BP Pulse Ox 97.5 F L 98 16 129/89 99 10/01/16 09:00 10/01/16 09:00 10/01/16 09:00 10/01/16 09:00 09/27/16 07:30 Assessment and Plan (1) Bipolar I disorder with mixed features Current visit: No Status: Acute Plan: Continue hospitalization, Close observation, Suicide Precautions per unit protocol, Encourage participation in unit milieu, Group Therapy, Monitor sleep, Monitor appetite Risks, benefits, side effects, alternatives discussed w/pt: Yes Patient agreeable to treatment: Yes Consult Discharge Plan - Plan Referrals: [facility] [Outside] - 10/04/16 11:00 am (The above appointment is with [facility] for counseling. You will also see Lurdes Pandey on 11/03/2016 at 9: 30am.)
[2016-10-01] MEDS: Nicotine 2 MG GUM BC PRN ×2 (10:26→21:14)
[2016-10-01] MEDS: *HR* LORazepam 1 MG TABLET PO PRN (17:40)
[2016-10-01] MEDS: traZODone 50 MG TABLET PO PRN (20:57)
[2016-10-01] MEDS: Divalproex (24 HR) 500 MG TABLET PO SCH (20:58)
[2016-10-02] MEDS: Acetaminophen 325 MG TABLET PO PRN ×2 (07:15→19:58)
[2016-10-02] MEDS: Nicotine 2 MG GUM BC PRN ×3 (07:15→21:54)
[2016-10-02] MEDS: BuPROPion XL (24 HR) 150 MG TABLET PO SCH (08:53)
[2016-10-02] MEDS: Famotidine 20 MG TABLET PO SCH ×2 (08:54→19:59)
[2016-10-02] MEDS: Loratadine 10 MG TABLET PO SCH ×2 (09:03→17:04)
--- NOTE | 2016-10-02 13:53 | Psychiatry Progress Note ---
Date of Encounter: 10/02/16 Time of Encounter: 13:30 Subjective Interval history: Patient is seen for follow-up. He is compliant with medication and attend groups. His affect continued to be restricted and depressed at times. This his discharge plans are ongoing with possible placement in respite. He denies suicidal thoughts and auditory hallucinations. Review of Systems Psychiatric: Reports: depression, anxiety, abnormal sleep pattern, suicidal ideation Objective: Exam Patient orientation: Yes Person, Yes Time, Yes Place Level of alertness: Alert Patient appearance: Appropriate, Well Groomed Behavior: calm, cooperative Psychomotor activity: Normal Eye contact: Maintains Eye Contact Mood description: Depressed, Anxious Affect description: congruent with mood, constricted Speech pattern: Normal rate, Normal rhythm, Normal tone Speech volume: Normal Thought process: Linear, Goal Oriented Thought content: No Suicidal ideation, No Homicidal ideation, No Overt delusions Perceptual disturbances: No Auditory hallucinations, No Visual hallucinations Judgment: Fair Insight: Partial Results - Vital Signs Vital Signs: Temp Pulse Resp BP Pulse Ox 97.2 F L 77 16 137/71 99 10/02/16 09:00 10/02/16 09:00 10/02/16 09:00 10/02/16 09:00 09/27/16 07:30 Assessment and Plan (1) Bipolar I disorder with mixed features Current visit: No Status: Acute Plan: Continue hospitalization, Close observation, Suicide Precautions per unit protocol, Encourage participation in unit milieu, Group Therapy, Monitor sleep, Monitor appetite Risks, benefits, side effects, alternatives discussed w/pt: Yes Patient agreeable to treatment: Yes Consult Discharge Plan - Plan Referrals: [facility] [Outside] - 10/04/16 11:00 am (The above appointment is with [facility] for counseling. You will also see Lurdes Pandey on 11/03/2016 at 9: 30am.)
[2016-10-02] MEDS: hydrOXYzine pamoate 25 MG CAPSULE PO PRN ×2 (14:16→19:58)
[2016-10-02] MEDS: Mag Hydrox/Al Hydrox/Simeth 30 ML UDC PO PRN (17:04)
[2016-10-02] MEDS: traZODone 50 MG TABLET PO PRN (19:59)
[2016-10-02] MEDS: Divalproex (24 HR) 500 MG TABLET PO SCH (19:59)
[2016-10-03] MEDS: Acetaminophen 325 MG TABLET PO PRN (06:34)
[2016-10-03] MEDS: Nicotine 2 MG GUM BC PRN (06:34)
[2016-10-03] MEDS: Famotidine 20 MG TABLET PO SCH (09:07)
[2016-10-03] MEDS: Loratadine 10 MG TABLET PO SCH (09:07)
[2016-10-03] MEDS: BuPROPion XL (24 HR) 150 MG TABLET PO SCH (09:07)
--- NOTE | 2016-10-03 13:54 | Discharge Summary ---
Date of Encounter: 10/03/16 Time of Encounter: 13:50 Diagnosis - Discharge Diagnosis (1) Bipolar I disorder with mixed features Status: Acute Medications - Discharge Medications Prescriptions: BuPROPion XL (24 HR) [Wellbutrin Xl] 300 mg PO DAILY #60 tab.er.24h Aripiprazole Lauroxil [Aristada] 882 mg IM QMONTH 09/27/16 [History] Cetirizine HCl [All Day Allergy] 10 mg PO QPM 09/27/16 [History] Divalproex (24 HR) [Depakote ER (24 HR)] 1,000 mg PO HS 09/27/16 [History] Lisinopril 2.5 mg PO QAM 09/27/16 [History] Loratadine [Allergy Relief] 10 mg PO QAM 09/27/16 [History] Ranitidine HCl [Acid Admittance Attendant] 150 mg PO BID 09/27/16 [History] hydrOXYzine pamoate [HydrOXYzine Pamoate] 25 mg PO TID PRN 09/27/16 [History] BuPROPion XL (24 HR) [Wellbutrin Xl] 300 mg PO DAILY #60 tab.er.24h 10/03/16 [Rx ] Allergies No Known Allergies Allergy (Verified 04/22/16 10:36) Results Procedures and tests throughout hospitalization: Completed Lab Orders Category Date Time Status Valproate Routine Lab 10/01/16 12:14 Completed Provider Date of admission: 09/27/16 13:37 Primary care physician: PCP NO Consults: 09/27/16 15:31 Consult to Pastoral Services [CONS] Routine Comment: Discharging clinician: Jeronimo Estrada Assessment and Plan - Patient/Caregiver Discharge Instructions Activity: resume usual activities as tolerated Diet: regular diet - Follow up Plan Follow up with: [facility] [Outside] - 10/04/16 11:00 am (The above appointment is with [facility] for counseling. You will also see Lurdes Pandey on 11/03/2016 at 9: 30am.) Functional capacity at discharge: independent ambulation Overall status at discharge: Stable Disposition: Home, Self-Care Hospital Course Hospital course: Mr. Bass is a 25 year old male admitted for suicidal ideation and noncompliance with medication. For details admission please see H&P On the units patient was started on Wellbutrin 150 mg daily then was increased to 300 mg daily. Patient responded well to medication he was more active and participated in groups. He was more interactive with peers and staff. He was motivated to make changes to his daily activities. He denies suicidal ideation and auditory hallucinations. Seroquel was discontinued and patient continued to have adequate sleep but not hypersomnia. On discharge he was medically stable, nonsuicidal, compliant with medication, and future oriented. His discharge plan and follow-up was completed by social work. - Time Spent with Patient Total time spent providing and/or coordinating discharge services: Greater than 30 minutes Quality - Multiple Antipsychotics Patient discharged on 2 or more antipsychotic medications: No Procedures - Procedures Procedures: Medication Management, Crisis Stabilization, Supportive Therapy, Group Therapy, Psychoeducational Therapy Mental Status Exam - Mental Status Exam Patient orientation: Yes Person, Yes Time, Yes Place Level of alertness: Alert Patient appearance: Appropriate, Well Groomed Behavior: calm, cooperative Psychomotor activity: Normal Eye contact: Maintains Eye Contact Mood description: Euthymic/stable Affect description: congruent with mood, full range Speech pattern: Normal rate, Normal rhythm, Normal tone Speech Volume: Normal Thought process: Linear, Goal Oriented Thought Content: No Suicidal ideation, No Homicidal ideation, No Overt delusions Perceptual Disturbances: No Auditory hallucinations, No Visual hallucinations Judgment: Limited Insight: Partial
[2016-10-03 14:03] VITALS: BP 137/86
--- NOTE | 2016-10-03 15:29 | Physician Discharge Referral ---
Home Health/Hosp Referral Info Transfer to: Home Health Attending Provider: tam solo Provider in Charge Post Discharge: PCP - Diagnosis (1) Bipolar I disorder with mixed features Status: Acute - Respiratory Orders Smoking Cessation: Smoking cessation has been advised. For more information, call the [place] Tobacco Quit Line at 2-303-XHLR-NOW. - Services Needed Following services are medically necessary services: Nursing - Transfer Medications Prescriptions: BuPROPion XL (24 HR) [Wellbutrin Xl] 300 mg PO DAILY #60 tab.er.24h Home Medications: Aripiprazole Lauroxil [Aristada] 882 mg IM QMONTH 09/27/16 [History] Cetirizine HCl [All Day Allergy] 10 mg PO QPM 09/27/16 [History] Divalproex (24 HR) [Depakote ER (24 HR)] 1,000 mg PO HS 09/27/16 [History] Lisinopril 2.5 mg PO QAM 09/27/16 [History] Loratadine [Allergy Relief] 10 mg PO QAM 09/27/16 [History] Ranitidine HCl [Acid Robot Technician] 150 mg PO BID 09/27/16 [History] hydrOXYzine pamoate [HydrOXYzine Pamoate] 25 mg PO TID PRN 09/27/16 [History] BuPROPion XL (24 HR) [Wellbutrin Xl] 300 mg PO DAILY #60 tab.er.24h 10/03/16 [Rx ] Allergies/Adverse Reactions: Allergies No Known Allergies Allergy (Verified 04/22/16 10:36) Certification: Further, I certify that my clinical findings support that this patient is homebound (i.e. absences from home require considerable and taxing effort and are for medical reasons or caodaism services or infrequently or short duration when for other reasons) because: Homebound Reason: Altered mental status requiring supervision when leaving home Attestation: My signature below is to certify that this patient is under my care and that I, or nurse practitioner, or a physician's catering assistant working with me, has a face-to -face encounter with this patient.
== END 2016-10-03 15:22 | disposition home or self-care (01) | DRG 753 ==
LOC: EMEROO 00:55 → 1ANU 13:37
PROVIDERS: ADMIT Psychiatry & Neurology Psychiatry; ATTEND Psychiatry & Neurology Psychiatry

== ENCOUNTER 2016-12-31 01:33 | Inpatient (IN) ==
--- NOTE | 2016-12-31 02:04 | Emergency Department Note ---
Disposition Clinical Impression: Depression, Suicidal ideation Disposition: Admitted As Inpatient Condition: Good Psych HPI - General Chief Complaint: ED Psychiatric Symptoms Stated Complaint: Suicidal Ideations Time Seen by Provider: 12/31/16 01:49 Source: EMS Mode of arrival: EMS Limitations: no limitations Nursing Notes Reviewed: Yes Vital Signs Reviewed: Yes - History of Present Illness HPI Narrative: Patient presents to the ED with suicidal ideation. States that he wants to kill himself. States he tried to kill himself before. States that he wants to take a bunch of pills and not live anymore. Denies any pain. Denies any ingestion. - Related Data Home Medications Medication Instructions Recorded Confirmed Aripiprazole Lauroxil [Aristada] 882 mg IM QMONTH 09/27/16 12/21/16 Cetirizine HCl [All Day Allergy] 10 mg PO QPM 09/27/16 12/21/16 Divalproex (24 HR) [Depakote ER 1,000 mg PO HS 09/27/16 12/21/16 (24 HR)] Lisinopril 2.5 mg PO QAM 09/27/16 12/21/16 Loratadine [Allergy Relief] 10 mg PO QAM 09/27/16 12/21/16 Ranitidine HCl [Acid Evp Managing Director] 150 mg PO DAILY 09/27/16 12/21/16 ALPRAZolam [Xanax 0.25 MG Tablet] 0.5 mg PO TID PRN 12/21/16 12/21/16 Buspirone HCl [Buspar] 15 mg PO DAILY 12/21/16 12/21/16 Previous Rx's Medication Instructions Recorded BuPROPion XL (24 HR) [Wellbutrin 300 mg PO DAILY #60 tab.er.24h 10/03/16 Xl] Doxycycline 100 mg PO BID #20 capsule 12/28/16 Allergies Allergy/AdvReac Type Severity Reaction Status Date / Time No Known Allergies Allergy Verified 04/22/16 10:36 All systems ED: reviewed and negative except as stated. Constitutional: Denies: fever Cardiovascular: Denies: chest pain Musculoskeletal: Denies: back pain Psychiatric: Reports: as per HPI, depression, suicidal thoughts Past Medical History - Past Medical History Attestation: Yes The following information was validated with the patient. Source: patient Medical history: Reports: hypertension Surgical history: Reports: no surgical history Psychiatric history: Reports: anxiety, bipolar, depression, prior suicide attempt, previous psychiatric hospitalization - Social History Smoking Status: Current every day smoker Smokeless Tobacco Status: No Alcohol use: Reports: none Drug use: Reports: none Physical Exam - General Limitations: no limitations General appearance: alert, in no apparent distress - Head Head exam: atraumatic, normocephalic, normal inspection - Eye Eye exam: Present: normal appearance, PERRL, EOMI - Respiratory Respiratory exam: Present: normal lung sounds bilaterally - Cardiovascular Cardiovascular exam: Present: regular rate, normal rhythm, normal heart sounds - Abdominal Exam Abdominal exam: Present: soft, Non-Tender. Absent: tenderness, distention, guarding, rebound, rigidity - Extremities Exam Extremities exam: Present: normal inspection, full ROM. Absent: tenderness, pedal edema - Neurological Exam Neurological exam: Present: alert, oriented X3 - Psychiatric Psychiatric exam: Present: depressed, flat affect, suicidal ideation - Skin Skin exam: Present: warm, dry, intact, normal color Course Course Narrative: clearance and 1A consult, likely admit Vital Signs Temperature 97.4 F L 12/31/16 01:34 Pulse Rate 102 12/31/16 01:34 Respiratory Rate 20 12/31/16 01:34 Blood Pressure 148/95 12/31/16 01:34 O2 Sat by Pulse Oximetry 100 12/31/16 01:34 Temperature 97.8 F 12/31/16 05:40 Pulse Rate 90 12/31/16 05:40 Respiratory Rate 16 12/31/16 05:40 Blood Pressure 128/90 12/31/16 05:40 O2 Sat by Pulse Oximetry 100 12/31/16 01:34 Oxygen Delivery Oxygen Delivery Room Air Psych - Lab Data Result diagrams: 12/31/16 02:18 12/31/16 02:18 Lab Results 12/31/16 12/31/16 12/31/16 Range/Units 01:42 01:42 02:18 WBC 11.5 H (4.3-11.1) K/mcL RBC 4.74 (4.19-5.50) M/mcL Hgb 14.0 (12.9-16.9) g/dL Hct 42.8 (37.5-50.1) % MCV 90.3 (83.0-100.0) fL MCH 29.5 (28.0-33.3) pg MCHC 32.7 (31.6-35.5) g/dL RDW 12.5 (11.5-14.5) % Plt Count 240 (140-400) K/mcL MPV 10.5 (9.4-12.4) fL Immature Gran % 2.1 (0-4) % Seg Neutrophils % 53.5 % Lymphocytes % 27.2 % Monocytes % 9.6 % Eosinophils % 6.6 % Basophils % 1.0 % Neutrophils # 6.1 (1.6-8.9) K/mcL Lymphocytes # 3.1 (0.6-4.6) K/mcL Monocytes # 1.1 (0.0-1.3) K/mcL Eosinophils # 0.8 H (0.0-0.6) K/mcL Basophils # 0.1 (0.0-0.2) K/mcL Sodium (136-145) mEq/L Potassium (3.5-4.5) mEq/L Chloride (98-109) mEq/L Carbon Dioxide (19-29) mEq/L BUN (8-26) mg/dL Creatinine (0.72-1.25) mg/dL Est GFR ( Amer) (> 60) Est GFR (Non-Af Amer) (> 60) BUN/Creatinine Ratio (6-26) Glucose (70-99) mg/dL Calculated Osmolality (280-300) Calcium (8.6-10.8) mg/dL Urine Color Yellow (Yellow) Urine Clarity Cloudy A (Clear) Urine pH 7.0 (5.0-8.0) pH Units Ur Specific [place] 1.030 H (1.010-1.025) Urine Protein Negative (Neg-Trace) mg/dL Urine Glucose (UA) Normal (Normal) mg/dL Urine Ketones Negative (Negative) mg/dL Urine Blood Negative (Negative) Urine Nitrite Negative (Negative) Urine Bilirubin Negative (Negative) Urine Urobilinogen Normal (Normal) mg/dL Ur Leukocyte Esterase Negative (Negative) Urine Microscopic RBC 0-3 (0-3) per hpf Urine Microscopic WBC 0-3 (0-3) per hpf Ur Squamous Epith Cells Many H (None-Few) per lpf Urine Bacteria None Seen (None-Few) per hpf Hyaline Casts None Seen (None-Few) per lpf Salicylates (15-30) mg/dL Urine Opiates Screen Negative (Fnymsx=234) ng/mL Acetaminophen (10-30) mcg/mL Ur Barbiturates Screen Negative (Dhbfnn=407) ng/mL Ur Phencyclidine Scrn Negative (Cutoff=25) ng/mL Ur Amphetamines Screen Negative (Ucfmit=3324) ng/mL U Benzodiazepines Scrn Positive H (Esnolr=639) ng/mL Urine Cocaine Screen Negative (Cutoff= 300) ng/mL U Marijuana (THC) Screen Negative (Cutoff = 50) ng/mL Ethyl Alcohol (0-10) mg/dL 12/31/16 Range/Units 02:18 WBC (4.3-11.1) K/mcL RBC (4.19-5.50) M/mcL Hgb (12.9-16.9) g/dL Hct (37.5-50.1) % MCV (83.0-100.0) fL MCH (28.0-33.3) pg MCHC (31.6-35.5) g/dL RDW (11.5-14.5) % Plt Count (140-400) K/mcL MPV (9.4-12.4) fL Immature Gran % (0-4) % Seg Neutrophils % % Lymphocytes % % Monocytes % % Eosinophils % % Basophils % % Neutrophils # (1.6-8.9) K/mcL Lymphocytes # (0.6-4.6) K/mcL Monocytes # (0.0-1.3) K/mcL Eosinophils # (0.0-0.6) K/mcL Basophils # (0.0-0.2) K/mcL Sodium 138 (136-145) mEq/L Potassium 3.8 (3.5-4.5) mEq/L Chloride 107 (98-109) mEq/L Carbon Dioxide 24 (19-29) mEq/L BUN 17 (8-26) mg/dL Creatinine 0.92 (0.72-1.25) mg/dL Est GFR ( Amer) > 60 (> 60) Est GFR (Non-Af Amer) > 60 (> 60) BUN/Creatinine Ratio 18 (6-26) Glucose 89 (70-99) mg/dL Calculated Osmolality 287 (280-300) Calcium 9.1 (8.6-10.8) mg/dL Urine Color (Yellow) Urine Clarity (Clear) Urine pH (5.0-8.0) pH Units Ur Specific [place] (1.010-1.025) Urine Protein (Neg-Trace) mg/dL Urine Glucose (UA) (Normal) mg/dL Urine Ketones (Negative) mg/dL Urine Blood (Negative) Urine Nitrite (Negative) Urine Bilirubin (Negative) Urine Urobilinogen (Normal) mg/dL Ur Leukocyte Esterase (Negative) Urine Microscopic RBC (0-3) per hpf Urine Microscopic WBC (0-3) per hpf Ur Squamous Epith Cells (None-Few) per lpf Urine Bacteria (None-Few) per hpf Hyaline Casts (None-Few) per lpf Salicylates < 5.0 L (15-30) mg/dL Urine Opiates Screen (Vejrlg=168) ng/mL Acetaminophen 4.0 L (10-30) mcg/mL Ur Barbiturates Screen (Fxomia=265) ng/mL Ur Phencyclidine Scrn (Cutoff=25) ng/mL Ur Amphetamines Screen (Gdujvm=2777) ng/mL U Benzodiazepines Scrn (Pswqft=820) ng/mL Urine Cocaine Screen (Cutoff= 300) ng/mL U Marijuana (THC) Screen (Cutoff = 50) ng/mL Ethyl Alcohol < 10 (0-10) mg/dL Psychiatric Medical Clearance - Medical Clearance Checklist Medical History: No Social History Section defined Current Vitals: Last Vital Signs Temp 97.8 F 12/31/16 05:40 Pulse 90 12/31/16 05:40 Resp 16 12/31/16 05:40 BP 128/90 12/31/16 05:40 Pulse Ox 100 12/31/16 01:34 Psychiatric Lab Panel: Drug Levels and Toxicity 12/31/16 12/31/16 01:42 02:18 Urine Opiates Screen Negative Acetaminophen 4.0 L Ur Barbiturates Screen Negative Ur Phencyclidine Scrn Negative Ur Amphetamines Screen Negative U Benzodiazepines Scrn Positive H Urine Cocaine Screen Negative U Marijuana (THC) Screen Negative Ethyl Alcohol < 10 Abnormal Labs: Abnormal lab results WBC 11.5 K/mcL (4.3-11.1) H 12/31/16 02:18 Eosinophils # 0.8 K/mcL (0.0-0.6) H 12/31/16 02:18 Urine Clarity Cloudy (Clear) A 12/31/16 01:42 Ur Specific [place] 1.030 (1.010-1.025) H 12/31/16 01:42 Ur Squamous Epith Cells Many per lpf (None-Few) H 12/31/16 01:42 Salicylates < 5.0 mg/dL (15-30) L 12/31/16 02:18 Acetaminophen 4.0 mcg/mL (10-30) L 12/31/16 02:18 U Benzodiazepines Scrn Positive ng/mL (Ggeywb=605) H 12/31/16 01:42 Attestation Statement - Attestation Attestation: I, Akil Cordon MD, personally evaluated this patient and discussed their management with the resident physician. I reviewed the resident's note and agree with the documented findings, medical decision making, and plan of care. 26-year-old male presents to the emergency department with a complaint of increased depression and suicidal ideation. He has a prior history of suicidal ideation. Denies any actual suicide attempt tonight. No physical complaints. On examination patient is a well-developed well-nourished well-appearing male in no acute distress. He is alert and oriented 3. There is no cyanosis or diaphoresis. Breath sounds are clear and equal bilaterally. Heart regular rate and rhythm. Abdomen soft and nontender with normal bowel sounds. No gross focal neurological deficits. Labs reviewed. 1A psychiatry service consulted and evaluated patient in the emergency department and patient is being admitted to the [address]ry service.
[2016-12-31 02:23] LABS: Bilirubin,Urine Negative (Negative); Blood,Urine Negative (Negative); Clarity,Urine Cloudy (Clear); Color,Urine Yellow (Yellow); Glucose,Urine (UA) Normal (Normal); Ketones,Urine Negative (Negative); Leukocyte Esterase,Urine Negative (Negative); Nitrite,Urine Negative (Negative); Protein,Urine Negative (Neg-Trace); Urobilinogen,Urine Normal (Normal)
[2016-12-31 02:25] LABS: Bacteria,Urine None Seen per hpf (None-Few); Hyaline Casts,Urine None Seen per lpf (None-Few); RBC,Urine 0-3 per hpf (0-3); Squamous Epithelial Cell,Urine Many per lpf (None-Few); WBC,Urine 0-3 per hpf (0-3)
[2016-12-31 02:29] LABS: Basophils # 0.1 K/mcL (0.0-0.2); Eosinophils # 0.8 K/mcL (0.0-0.6); Eosinophils % 6.6 %; Hematocrit 42.8 % (37.5-50.1); Immature Granulocytes % 2.1 % (0-4); Lymphocytes # 3.1 K/mcL (0.6-4.6); Lymphocytes % 27.2 %; Mean Corpuscular HGB Conc 32.7 g/dL (31.6-35.5); Mean Corpuscular Hemoglobin 29.5 pg (28.0-33.3); Mean Corpuscular Volume 90.3 fL (83.0-100.0); Mean Platelet Volume 10.5 fL (9.4-12.4); Monocytes # 1.1 K/mcL (0.0-1.3); Monocytes % 9.6 %; Neutrophils # 6.1 K/mcL (1.6-8.9); Platelet Count 240 K/mcL (140-400); Red Blood Count 4.74 M/mcL (4.19-5.50); Red Cell Distribution Width 12.5 % (11.5-14.5); Segmented Neutrophils % 53.5 %
[2016-12-31 02:30] LABS: Amphetamine Screen,Urine Negative ng/mL (Cutoff=1000); Barbiturate Screen,Urine Negative ng/mL (Cutoff=200); Benzodiazepines Screen,Urine Positive ng/mL (Cutoff=200); Cannabinoid Screen,Urine Negative ng/mL (Cutoff = 50); Cocaine Screen,Urine Negative ng/mL (Cutoff= 300); Opiate Screen,Urine Negative ng/mL (Cutoff=300); Phencyclidine Screen,Urine Negative ng/mL (Cutoff=25)
[2016-12-31 02:40] LABS: BUN/Creatinine Ratio 18 (6-26); Blood Urea Nitrogen 17 mg/dL (8-26); Calcium 9.1 mg/dL (8.6-10.8); Carbon Dioxide 24 mEq/L (19-29); Chloride 107 mEq/L (98-109); Ethanol < 10 mg/dL (0-10); Glucose 89 mg/dL (70-99); Osmolality,Calculated 287 (280-300); Potassium 3.8 mEq/L (3.5-4.5); Salicylate < 5.0 mg/dL (15-30); Sodium 138 mEq/L (136-145); eGFR For African Americans > 60 (> 60); eGFR For Non-African Americans > 60 (> 60)
[2016-12-31] MEDS ORDERED: *HR* LORazepam 2 MG/ML VIAL IM PRN (05:12)
[2016-12-31] MEDS ORDERED: Haloperidol Lactate 5 MG/ML VIAL IM PRN (05:12)
[2016-12-31] MEDS ORDERED: Mag Hydrox/Al Hydrox/Simeth 30 ML UDC PO PRN (05:12)
[2016-12-31] MEDS ORDERED: Acetaminophen 325 MG TABLET PO PRN (05:12)
[2016-12-31] MEDS ORDERED: MOM Conc 10 ML UD.LIQ PO PRN (05:12)
[2016-12-31] MEDS ORDERED: *HR* LORazepam 1 MG TABLET PO PRN (05:12)
[2016-12-31] MEDS: Nicotine 21 MG PATCH.TD24 TD SCH (11:55)
--- NOTE | 2016-12-31 13:46 | Psychiatry History & Physical ---
Date of Encounter: 12/31/16 Time of Encounter: 01:45 History of Present Illness Patient Stated Chief Complaint: I am depressed and suicidal Medicare Admission Attestation: For traditional Medicare patients the provided hospital inpatient services are reasonable and necessary and in the case of services not specified as inpatient -only under 42 CFR 419.22 (n), that they are appropriately provided as inpatient services in accordance 42 CFR 412.3. For Critical Access Hospital the patient may reasonably be expected to be discharged or transferred to a hospital within 96 hours after admission to the Critical Access Hospital. Admitted From: Emergency Dept Plans for Post Hospital Care: Home History of Present Illness: Mr. Bass is a 26 year old male who is known to us from prior hospitalization and is noted to have history of bipolar disorder admitted from the emergency department where he presented for depression and suicidal ideation with a plan to overdose on his pills and ended his life. Patient reported that he has been noticing a relapse of his depressive symptoms for the last few days. He reported that his ongoing challenges include loneliness and a poor support system. He reported that he has been feeling low sad hopeless helpless having problems with sleeping and noticing erratic appetite. He reported that his energy levels and motivation is down. He endorses hopeless helpless feelings along with suicidal ideations and was contemplating on ending his life. He was unable to contract for safety and was posing a threat to himself it was decided to hospitalize him. Past Med Surg Social Fam HX - Past Medical History Medical history: hypertension - Past Psychiatric History Psychiatric history: Reports: bipolar, previous psychiatric hospitalization Family psychiatric history: Unknown Family History of Suicide: Unknown - Past Surgical History Surgical History: no surgical history - Social History Smoking Status: Current every day smoker Smokeless Tobacco Status: No Alcohol use: none Drug use: none Occupational status: disabled Current living situation: Home Activity Level: Independent ambulation Recent Out of Country Travel Within the Last 8 Weeks: No Exposure or Possible Exposure to Illness During Travel: No Additional social history: Reporting ok childhood Graduated HS patient was in special ed classes were being a slow learner. He is single and has no children and is on disability and resides by himself. He denies any current legal issues. - Family History Mother Hx Family Cardiac Disorders: Yes (blood clots) Father Hx Family HEENT Disorders: Yes (glaucoma) Hx Family Medical Disorders: Yes Medications & Allergies Aripiprazole Lauroxil [Aristada] 882 mg IM QMONTH 09/27/16 [History] Cetirizine HCl [All Day Allergy] 10 mg PO QPM 09/27/16 [History] Divalproex (24 HR) [Depakote ER (24 HR)] 1,000 mg PO HS 09/27/16 [History] Lisinopril 2.5 mg PO QAM 09/27/16 [History] Loratadine [Allergy Relief] 10 mg PO QAM 09/27/16 [History] Ranitidine HCl [Acid Electric Lineman] 150 mg PO DAILY 09/27/16 [History] BuPROPion XL (24 HR) [Wellbutrin Xl] 300 mg PO DAILY #60 tab.er.24h 10/03/16 [Rx ] ALPRAZolam [Xanax 0.25 MG Tablet] 0.5 mg PO TID PRN 12/21/16 [History] Buspirone HCl [Buspar] 15 mg PO DAILY 12/21/16 [History] Doxycycline 100 mg PO BID #20 capsule 12/28/16 [Rx] 3 Allergy/AdvReac Type Severity Reaction Status Date / Time No Known Allergies Allergy Verified 04/22/16 10:36 Review of Systems Psychiatric: Reports: depression, abnormal sleep pattern, suicidal ideation, anhedonia, difficulty concentrating, hopelessness Mental Status Exam Patient orientation: Yes Person, Yes Time, Yes Place Level of alertness: Alert Patient appearance: Unkempt, Disheveled Behavior: withdrawn Psychomotor activity: Slowed Eye contact: Minimal Contact Mood description: Depressed Affect description: flat, dysphoric Speech pattern: Slowed Speech volume: Soft/Quiet Thought process: Flatgap, Slowed Thinking Thought content: Yes Suicidal ideation Perceptual disturbances: No Auditory hallucinations, No Visual hallucinations Attention span: Capable of Focused Attention Memory description: Grossly Intact Patient reliability: Reliable Historian Intelligence estimate: Below Average Judgment: Limited Insight: Minimal Exam - HEENT Head exam IM: Present: atraumatic, normal inspection Eye exam IM: Present: normal appearance ENT exam IM: Present: normal exam - Neurological Neurological exam IM: Present: CN II-XII intact, normal gait, oriented X3, reflexes normal, no focal deficits. Absent: motor sensory deficit - Respiratory Respiratory exam IM: Absent: respiratory distress - GI/Abdominal GI/Abdominal exam IM: Present: normal bowel sounds, soft - Extremities Extremities exam IM: Present: normal inspection - Skin Skin exam IM: Present: normal color Results - Vital Signs Vital signs: Temp Pulse Resp BP Pulse Ox 97.8 F 90 16 128/90 100 12/31/16 05:40 12/31/16 05:40 12/31/16 05:40 12/31/16 05:40 12/31/16 01:34 - Labs Labs: Laboratory Last Values WBC 11.5 K/mcL (4.3-11.1) H 12/31/16 02:18 RBC 4.74 M/mcL (4.19-5.50) 12/31/16 02:18 Hgb 14.0 g/dL (12.9-16.9) 12/31/16 02:18 Hct 42.8 % (37.5-50.1) 12/31/16 02:18 MCV 90.3 fL (83.0-100.0) 12/31/16 02:18 MCH 29.5 pg (28.0-33.3) 12/31/16 02:18 MCHC 32.7 g/dL (31.6-35.5) 12/31/16 02:18 RDW 12.5 % (11.5-14.5) 12/31/16 02:18 Plt Count 240 K/mcL (140-400) 12/31/16 02:18 MPV 10.5 fL (9.4-12.4) 12/31/16 02:18 Immature Gran % 2.1 % (0-4) 12/31/16 02:18 Seg Neutrophils % 53.5 % 12/31/16 02:18 Lymphocytes % 27.2 % 12/31/16 02:18 Monocytes % 9.6 % 12/31/16 02:18 Eosinophils % 6.6 % 12/31/16 02:18 Basophils % 1.0 % 12/31/16 02:18 Neutrophils # 6.1 K/mcL (1.6-8.9) 12/31/16 02:18 Lymphocytes # 3.1 K/mcL (0.6-4.6) 12/31/16 02:18 Monocytes # 1.1 K/mcL (0.0-1.3) 12/31/16 02:18 Eosinophils # 0.8 K/mcL (0.0-0.6) H 12/31/16 02:18 Basophils # 0.1 K/mcL (0.0-0.2) 12/31/16 02:18 Sodium 138 mEq/L (136-145) 12/31/16 02:18 Potassium 3.8 mEq/L (3.5-4.5) 12/31/16 02:18 Chloride 107 mEq/L (98-109) 12/31/16 02:18 Carbon Dioxide 24 mEq/L (19-29) 12/31/16 02:18 BUN 17 mg/dL (8-26) 12/31/16 02:18 Creatinine 0.92 mg/dL (0.72-1.25) 12/31/16 02:18 Est GFR ( Amer) > 60 (> 60) 12/31/16 02:18 Est GFR (Non-Af Amer) > 60 (> 60) 12/31/16 02:18 BUN/Creatinine Ratio 18 (6-26) 12/31/16 02:18 Glucose 89 mg/dL (70-99) 12/31/16 02:18 Calculated Osmolality 287 (280-300) 12/31/16 02:18 Calcium 9.1 mg/dL (8.6-10.8) 12/31/16 02:18 Urine Color Yellow (Yellow) 12/31/16 01:42 Urine Clarity Cloudy (Clear) A 12/31/16 01:42 Urine pH 7.0 pH Units (5.0-8.0) 12/31/16 01:42 Ur Specific [place] 1.030 (1.010-1.025) H 12/31/16 01:42 Urine Protein Negative mg/dL (Neg-Trace) 12/31/16 01:42 Urine Glucose (UA) Normal mg/dL (Normal) 12/31/16 01:42 Urine Ketones Negative mg/dL (Negative) 12/31/16 01:42 Urine Blood Negative (Negative) 12/31/16 01:42 Urine Nitrite Negative (Negative) 12/31/16 01:42 Urine Bilirubin Negative (Negative) 12/31/16 01:42 Urine Urobilinogen Normal mg/dL (Normal) 12/31/16 01:42 Ur Leukocyte Esterase Negative (Negative) 12/31/16 01:42 Urine Microscopic RBC 0-3 per hpf (0-3) 12/31/16 01:42 Urine Microscopic WBC 0-3 per hpf (0-3) 12/31/16 01:42 Ur Squamous Epith Cells Many per lpf (None-Few) H 12/31/16 01:42 Urine Bacteria None Seen per hpf (None-Few) 12/31/16 01:42 Hyaline Casts None Seen per lpf (None-Few) 12/31/16 01:42 Salicylates < 5.0 mg/dL (15-30) L 12/31/16 02:18 Urine Opiates Screen Negative ng/mL (Imltco=840) 12/31/16 01:42 Acetaminophen 4.0 mcg/mL (10-30) L 12/31/16 02:18 Ur Barbiturates Screen Negative ng/mL (Ozrwso=356) 12/31/16 01:42 Valproic Acid 49.05 mcg/mL (50-100) L 12/31/16 02:18 Ur Phencyclidine Scrn Negative ng/mL (Cutoff=25) 12/31/16 01:42 Ur Amphetamines Screen Negative ng/mL (Vhczaz=2911) 12/31/16 01:42 U Benzodiazepines Scrn Positive ng/mL (Fzicbp=272) H 12/31/16 01:42 Urine Cocaine Screen Negative ng/mL (Cutoff= 300) 12/31/16 01:42 U Marijuana (THC) Screen Negative ng/mL (Cutoff = 50) 12/31/16 01:42 Ethyl Alcohol < 10 mg/dL (0-10) 12/31/16 02:18 Assessment and Plan (1) Bipolar disorder, most recent episode depressed Current visit: Yes Status: Acute Plan: Admit inpatient for safety and stabilization, Close observation, Suicide Precautions per unit protocol, Encourage participation in unit milieu, Group Therapy, Monitor sleep, Monitor appetite Additional Plan: We will continue patient's Depakote and Wellbutrin after verifying the dosage. We will discontinue Xanax and start the patient on Klonopin 0.5 mg twice a day. We will start the patient on Prozac 10 mg daily for his depression Risks, benefits, side effects, alternatives discussed w/pt: Yes Patient agreeable to treatment: Yes Plans for Post Hospital Care: Home Estimated Length of Stay (Days): 3 (2) Bipolar disorder, most recent episode depressed Current visit: Yes Status: Acute
[2016-12-31] MEDS ORDERED: clonazePAM 0.5 MG TABLET PO PRN (13:53)
[2016-12-31] MEDS: FLUoxetine HCl 10 MG CAPSULE PO SCH (14:07)
[2016-12-31] MEDS ORDERED: Fluticasone Propionate Nasal 50 MCG/SPRAY BOTTLE NS PRN (14:42)
[2016-12-31] MEDS: hydrALAZINE 25 MG TABLET PO SCH ×2 (16:03→21:56)
[2016-12-31] MEDS: BuPROPion XL (24 HR) 150 MG TABLET PO SCH (16:03)
[2016-12-31] MEDS: Famotidine 20 MG TABLET PO SCH (20:55)
[2016-12-31] MEDS: Divalproex (24 HR) 500 MG TABLET PO SCH (20:55)
[2016-12-31] MEDS: clonazePAM 0.5 MG TABLET PO PRN (20:55)
[2017-01-01] MEDS: Loratadine 10 MG TABLET PO SCH (09:49)
[2017-01-01] MEDS: hydrALAZINE 25 MG TABLET PO SCH ×3 (09:50→20:55)
[2017-01-01] MEDS: Nicotine 21 MG PATCH.TD24 TD SCH (09:50)
[2017-01-01] MEDS: BuPROPion XL (24 HR) 150 MG TABLET PO SCH (09:51)
[2017-01-01] MEDS: FLUoxetine HCl 10 MG CAPSULE PO SCH (09:51)
[2017-01-01] MEDS: Famotidine 20 MG TABLET PO SCH ×2 (09:51→20:55)
--- NOTE | 2017-01-01 13:34 | Psychiatry Progress Note ---
Date of Encounter: 01/01/17 Time of Encounter: 13:33 Subjective Interval history: Patient seen and evaluated this morning patient reports that he feels he is doing better since admission reports the reason he feels he is doing better is because he has had time to "think". He reports that he feels he has been able to work on his anxiety while he has been here patient reports no current issues with his medication and denies any issues with sleep or appetite and has been medication compliant per staff patient has not had any when necessary's for agitation or aggression Review of Systems Psychiatric: Reports: depression, abnormal sleep pattern, suicidal ideation, anhedonia, difficulty concentrating, hopelessness Objective: Exam Patient orientation: Yes Person, Yes Time, Yes Place Level of alertness: Alert Patient appearance: Appropriate Behavior: calm Psychomotor activity: Normal Eye contact: Maintains Eye Contact Mood description: Euthymic/stable Affect description: congruent with mood Speech pattern: Normal rate, Normal rhythm, Normal tone Speech volume: Normal Thought process: Intact Thought content: Yes Intact Judgment: Fair Insight: Partial Results - Vital Signs Vital Signs: Temp Pulse Resp BP Pulse Ox 97.2 F L 96 16 124/89 100 01/01/17 09:00 01/01/17 09:00 01/01/17 09:00 01/01/17 09:00 12/31/16 01:34 Assessment and Plan (1) Bipolar I disorder with mixed features Current visit: No Status: Acute Plan: Continue hospitalization, Group Therapy, Monitor sleep, Monitor appetite Risks, benefits, side effects, alternatives discussed w/pt: Yes Patient agreeable to treatment: Yes Consult Discharge Plan - Plan Referrals: NONE,PCP [Primary Care Provider] -
[2017-01-01] MEDS: clonazePAM 0.5 MG TABLET PO PRN (19:05)
[2017-01-01] MEDS: Divalproex (24 HR) 500 MG TABLET PO SCH (20:55)
[2017-01-02] MEDS: traZODone 50 MG TABLET PO PRN ×2 (00:01→20:58)
[2017-01-02] MEDS: FLUoxetine 20 MG CAPSULE PO SCH (08:49)
[2017-01-02] MEDS: Famotidine 20 MG TABLET PO SCH ×2 (08:51→20:58)
[2017-01-02] MEDS: Loratadine 10 MG TABLET PO SCH (08:51)
[2017-01-02] MEDS: hydrALAZINE 25 MG TABLET PO SCH ×3 (08:51→20:58)
[2017-01-02] MEDS: BuPROPion XL (24 HR) 150 MG TABLET PO SCH (08:51)
[2017-01-02] MEDS: Nicotine 21 MG PATCH.TD24 TD SCH (08:52)
--- NOTE | 2017-01-02 15:14 | Psychiatry Progress Note ---
Date of Encounter: 01/02/17 Time of Encounter: 15:13 Subjective Interval history: Patient seen and evaluated this morning patient reports that he is feeling "better" since he has been here on the unit. Patient has been med compliant patient reports no current issues with his current mood. Patient has been medication compliant patient reports no side effects with current medication patient denied any overt psychotic symptoms. Review of Systems Psychiatric: Reports: depression, abnormal sleep pattern, suicidal ideation, anhedonia, difficulty concentrating, hopelessness Objective: Exam Patient orientation: Yes Person, Yes Time, Yes Place Level of alertness: Alert Patient appearance: Appropriate Behavior: calm Psychomotor activity: Normal Eye contact: Maintains Eye Contact Mood description: Euthymic/stable Affect description: congruent with mood Speech pattern: Normal rate, Normal rhythm, Normal tone Speech volume: Normal Thought process: Intact Thought content: Yes Intact Judgment: Fair Insight: Partial Results - Vital Signs Vital Signs: Temp Pulse Resp BP Pulse Ox 97.4 F L 90 16 132/88 100 01/02/17 09:00 01/02/17 09:00 01/02/17 09:00 01/02/17 09:00 12/31/16 01:34 Assessment and Plan (1) Bipolar I disorder with mixed features Current visit: No Status: Acute Plan: Encourage participation in unit milieu, Group Therapy, Monitor sleep, Monitor appetite Risks, benefits, side effects, alternatives discussed w/pt: Yes Patient agreeable to treatment: Yes Consult Discharge Plan - Plan Referrals: [facility] [Outside] (You are going into mental health respite at [facility] on discharge from the hospital. While there, you will be seen daily by the clinic counselors and case monitor, both individually and in group. You will also see Susannah Lr CNP, for outpatient psychiatric assessment and medication management services on 01/12/2017 at 3:00pm. )
--- NOTE | 2017-01-02 16:05 | Discharge Summary ---
Date of Encounter: 01/03/17 Time of Encounter: 15:58 Diagnosis - Discharge Diagnosis (1) Bipolar I disorder with mixed features Status: Acute Medications - Discharge Medications Prescriptions: BuPROPion XL (24 HR) [Wellbutrin Xl] 300 mg PO DAILY #30 Buspirone HCl [Buspar] 10 mg PO TID #90 tab Divalproex (24 HR) [Depakote ER (24 HR)] 1,500 mg PO HS #90 FLUoxetine HCl [Prozac] 20 mg PO DAILY #30 Nicotine Patch [Nicoderm] 21 mg TD DAILY #30 traZODone [TraZODone] 50 mg PO HS PRN #30 tab PRN Reason: Insomnia Aripiprazole Lauroxil [Aristada] 882 mg IM QMONTH 09/27/16 [History] Ranitidine HCl [Acid Agency Recruiter] 150 mg PO BID 09/27/16 [History] Fluticasone Propionate Nasal [Flonase] 50 mcg NS DAILY PRN 12/31/16 [History] BuPROPion XL (24 HR) [Wellbutrin Xl] 300 mg PO DAILY #30 01/02/17 [Rx] Buspirone HCl [Buspar] 10 mg PO TID #90 tab 01/02/17 [Rx] Divalproex (24 HR) [Depakote ER (24 HR)] 1,500 mg PO HS #90 01/02/17 [Rx] FLUoxetine HCl [Prozac] 20 mg PO DAILY #30 01/02/17 [Rx] Lisinopril [Zestril] 2.5 mg PO QAM tab 01/02/17 [Rx] Loratadine [Claritin] 10 mg PO QAM tab 01/02/17 [Rx] Nicotine Patch [Nicoderm] 21 mg TD DAILY #30 01/02/17 [Rx] hydrALAZINE [HydrALAZINE] 50 mg PO TID tab 01/02/17 [Rx] traZODone [TraZODone] 50 mg PO HS PRN #30 tab 01/02/17 [Rx] 3 Allergy/AdvReac Type Severity Reaction Status Date / Time No Known Allergies Allergy Verified 04/22/16 10:36 Results Procedures and tests throughout hospitalization: Completed Lab Orders Category Date Time Status Valproate Routine Lab 12/31/16 02:18 Completed Provider Date of admission: 12/31/16 04:58 Primary care physician: PCP NONE Discharging clinician: Chata Madden Assessment and Plan - Patient/Caregiver Discharge Instructions Activity: resume usual activities as tolerated Diet: regular diet - Follow up Plan Follow up with: [facility] [Outside] (You are going into mental health respite at [facility] on discharge from the hospital. While there, you will be seen daily by the clinic counselors and rn case management, both individually and in group. You will also see Susannah Lr CNP, for outpatient psychiatric assessment and medication management services on 01/12/2017 at 3:00pm. ) Overall status at discharge: Stable Disposition: Home, Self-Care Hospital Course Hospital course: Mr. Bass is a 26 year old male with psychiatric history of bipolar disorder admitted to [facility] inpatient psychiatric unit for safety and stabilization. Patient's home medications were continued and reviewed. Pt was monitored on his home medicatiosn which he did well on throughout hospital course. Patient did not exhibit any side effects to medication he was med compliant while he was on the unit patient participated in groups and was socializing with peers. Patient's sleep and appetite was fair. Patient denied any suicide or homicide ideations. Patient denied any thoughts of self-harm. Patient reports being interested in outpatient medication management and counseling. Patient was discussed for discharge due to patient not being a threat to himself or anyone else. geriatric social worker did make contact with patient's mother. Patient will be returning to respite on discharge. Time spent discussing smoking cessation with patient: 3 to 10 minutes Does patient wish to continue nicotine replacement upon disc: No - Time Spent with Patient Total time spent providing and/or coordinating discharge services: Less than 30 minutes Quality - Multiple Antipsychotics Patient discharged on 2 or more antipsychotic medications: No Mental Status Exam - Mental Status Exam Patient orientation: Yes Person, Yes Time, Yes Place Level of alertness: Alert Patient appearance: Appropriate Behavior: calm, cooperative Psychomotor activity: Normal Eye contact: Maintains Eye Contact Mood description: Euthymic/stable Affect description: congruent with mood Speech pattern: Normal rate, Normal rhythm, Normal tone Speech Volume: Normal Thought process: Intact Thought Content: Yes Intact Judgment: Fair Insight: Partial
[2017-01-02] MEDS: hydrOXYzine pamoate 25 MG CAPSULE PO PRN (18:31)
[2017-01-02] MEDS: Divalproex (24 HR) 500 MG TABLET PO SCH (20:58)
[2017-01-03] MEDS: hydrOXYzine pamoate 25 MG CAPSULE PO PRN (00:07)
[2017-01-03] MEDS: hydrALAZINE 25 MG TABLET PO SCH (08:55)
[2017-01-03] MEDS: Loratadine 10 MG TABLET PO SCH (08:56)
[2017-01-03] MEDS: BuPROPion XL (24 HR) 150 MG TABLET PO SCH (08:56)
[2017-01-03] MEDS: FLUoxetine 20 MG CAPSULE PO SCH (08:56)
[2017-01-03] MEDS: Famotidine 20 MG TABLET PO SCH (08:57)
[2017-01-03] MEDS: Nicotine 21 MG PATCH.TD24 TD SCH (08:57)
--- NOTE | 2017-01-03 10:15 | Physician Discharge Referral ---
Home Health/Hosp Referral Info Transfer to: Home Health Attending Provider: comfort Provider in Charge Post Discharge: PCP - Diagnosis (1) Bipolar I disorder with mixed features Priority: Primary Status: Acute - Respiratory Orders Smoking Cessation: Smoking cessation has been advised. For more information, call the [place] Tobacco Quit Line at 3-781-NTLZ-NOW. - Diet/Nutrition Diet/Nutrition Orders: Regular - Activity Activity Orders: Up ad belinda - Services Needed Following services are medically necessary services: Nursing (continue previous orders) - Transfer Medications Prescriptions: BuPROPion XL (24 HR) [Wellbutrin Xl] 300 mg PO DAILY #30 Buspirone HCl [Buspar] 10 mg PO TID #90 tab Divalproex (24 HR) [Depakote ER (24 HR)] 1,500 mg PO HS #90 FLUoxetine HCl [Prozac] 20 mg PO DAILY #30 Nicotine Patch [Nicoderm] 21 mg TD DAILY #30 traZODone [TraZODone] 50 mg PO HS PRN #30 tab PRN Reason: Insomnia Home Medications: Aripiprazole Lauroxil [Aristada] 882 mg IM QMONTH 09/27/16 [History] Ranitidine HCl [Acid Casting Carrier] 150 mg PO BID 09/27/16 [History] Fluticasone Propionate Nasal [Flonase] 50 mcg NS DAILY PRN 12/31/16 [History] BuPROPion XL (24 HR) [Wellbutrin Xl] 300 mg PO DAILY #30 01/02/17 [Rx] Buspirone HCl [Buspar] 10 mg PO TID #90 tab 01/02/17 [Rx] Divalproex (24 HR) [Depakote ER (24 HR)] 1,500 mg PO HS #90 01/02/17 [Rx] FLUoxetine HCl [Prozac] 20 mg PO DAILY #30 01/02/17 [Rx] Lisinopril [Zestril] 2.5 mg PO QAM tab 01/02/17 [Rx] Loratadine [Claritin] 10 mg PO QAM tab 01/02/17 [Rx] Nicotine Patch [Nicoderm] 21 mg TD DAILY #30 01/02/17 [Rx] hydrALAZINE [HydrALAZINE] 50 mg PO TID tab 01/02/17 [Rx] traZODone [TraZODone] 50 mg PO HS PRN #30 tab 01/02/17 [Rx] Allergies/Adverse Reactions: 3 Allergy/AdvReac Type Severity Reaction Status Date / Time No Known Allergies Allergy Verified 04/22/16 10:36 Certification: Further, I certify that my clinical findings support that this patient is homebound (i.e. absences from home require considerable and taxing effort and are for medical reasons or shinto services or infrequently or short duration when for other reasons) because: Homebound Reason: Altered mental status requiring supervision when leaving home Attestation: My signature below is to certify that this patient is under my care and that I, or nurse practitioner, or a physician's title i instructional assistant working with me, has a face-to -face encounter with this patient.
[2017-01-03 10:47] VITALS: BP 130/87
== END 2017-01-03 12:05 | disposition home or self-care (01) | DRG 753 ==
LOC: EMEROO 01:33 → 1ANU 04:58
PROVIDERS: ADMIT Psychiatry & Neurology Psychiatry; ATTEND Psychiatry & Neurology Psychiatry

== ENCOUNTER 2018-03-07 19:54 | Inpatient (IN) ==
--- NOTE | 2018-03-07 20:57 | Emergency Department Note ---
Disposition Clinical Impression: Acute psychosis, Chronic schizophrenia, Suicidal ideation Disposition: Admitted As Inpatient Condition: Good Referrals: NONE,PCP [Primary Care Provider] - Forms: ED Satisfaction Letter Time of Disposition: 00:11 Psych HPI - General Stated Complaint: Hearing voices say to hurt himslef. Time Seen by Provider: 03/07/18 20:53 Source: patient, family Mode of arrival: ambulatory Limitations: no limitations Nursing Notes Reviewed: Yes Vital Signs Reviewed: Yes - History of Present Illness HPI Narrative: Patient presents to the ED with the chief complaint of auditory hallucinations and suicidal ideations. Patient has a history of schizophrenia with recent admission one month ago. Had some medication changes with an increase to his BuSpar and was taken off his Abilify. Was previously seen at [facility] and is now following, angela. States that about 4 days ago he started hearing voices again. States the voices are telling him to kill himself and are becoming increasingly more aggressive and concerning. States that he cannot get the voices in his head. He denies any plan and states he just wants the voices go away. No ingestions. Denies any other complaints. - Related Data Home Medications Medication Instructions Recorded Confirmed Aripiprazole Lauroxil [Aristada] 882 mg IM QMONTH 09/27/16 12/31/16 Ranitidine HCl [Acid Casino Floor Supervisor] 150 mg PO BID 09/27/16 12/31/16 Previous Rx's Medication Instructions Recorded Buspirone HCl [Buspar] 10 mg PO TID #90 tab 01/02/17 Divalproex (24 HR) [Depakote ER 1,500 mg PO HS #90 01/02/17 (24 HR)] FLUoxetine HCl [Prozac] 20 mg PO DAILY #30 01/02/17 Lisinopril [Zestril] 2.5 mg PO QAM tab 01/02/17 traZODone [TraZODone] 50 mg PO HS PRN #30 tab 01/02/17 Amoxicillin 875 mg PO BID #20 tablet 01/02/18 Phenylephrine HCl/Prometh HCl 5 - 10 ml PO QID PRN #180 syrup 01/02/18 [Promethazine-Phenylephrine Syr] Allergies Allergy/AdvReac Type Severity Reaction Status Date / Time No Known Allergies Allergy Verified 01/02/18 17:29 Review of Systems: As reviewed in the HPI. All other systems reviewed are negative or normal. Past Medical History - Past Medical History Attestation: Yes The following information was validated with the patient. Source: patient Medical history: Reports: no medical history Surgical history: Reports: no surgical history Psychiatric history: Reports: bipolar, schizophrenia, previous psychiatric hospitalization - Social History Smoking Status: Current every day smoker Smokeless Tobacco Status: No Alcohol use: Reports: none Drug use: Reports: marijuana Physical Exam CONSTITUTIONAL: [well appearing, alert and in no acute distress] EYES: [EOMI, clear conjunctiva, PERRLA] HENT: [Normocephalic, atraumatic, moist mucus membranes, normal oropharynx] NECK: [normal inspection, full ROM, trachea midline, no obvious swelling] PULMONARY: [normal lung sounds bilaterally, normal chest rise and fall, no respiratory distress or stridor, no wheezes, no rales, no rhonchi CARDIOVASCULAR: [regular rate, regular rhythm, normal heart sounds, no murmurs, distal extremities are warm and well perfused] GASTROINSTESTINAL: [soft, non-tender, non-rigid, non-distended, no guarding, no rebound, normal bowel sounds] GENITOURINARY/RECTAL: [deferred] NEUROLOGIC: [Alert, oriented x3, normal speech, moves all extremities] EXTREMITIES: [Normal inspection, full ROM, no tenderness, no pedal edema, normal capillary refill] MUSCULOSKELETAL: [no gross deformities, atraumatic] SKIN: [No cyanosis, no diaphoresis, normal color, warm, no rash] PSYCHIATRIC: [flat affect, slightly poor eye contact, not aggressive] Course Course Narrative: psych saw patient and will admit but won't be able to take him until 0800 due to a door malfunction to the unit. Requested a single dose of abilify which was ordered. patient agreeable with plan Vital Signs Temperature 97.5 F L 03/07/18 20:44 Pulse Rate 105 03/07/18 20:44 Respiratory Rate 18 03/07/18 20:44 Blood Pressure 137/87 03/07/18 20:44 O2 Sat by Pulse Oximetry 96 03/07/18 20:44 Temperature 97.5 F L 03/07/18 20:44 Pulse Rate 105 03/07/18 20:44 Respiratory Rate 18 03/07/18 20:44 Blood Pressure 137/87 03/07/18 20:44 O2 Sat by Pulse Oximetry 96 03/07/18 20:44 Oxygen Delivery Oxygen Delivery Room Air Psych - Lab Data Result diagrams: 03/07/18 21:14 03/07/18 21:14 Lab Results 03/07/18 03/07/18 03/07/18 Range/Units 21:14 21:14 21:21 WBC 15.0 H (4.3-11.1) K/mcL RBC 4.92 (4.19-5.50) M/mcL Hgb 14.7 (12.9-16.9) g/dL Hct 44.2 (37.5-50.1) % MCV 89.8 (83.0-100.0) fL MCH 29.9 (28.0-33.3) pg MCHC 33.3 (31.6-35.5) g/dL RDW 12.2 (11.5-14.5) % Plt Count 268 (140-400) K/mcL MPV 10.6 (9.4-12.4) fL Immature Gran % 1.8 (0-4) % Seg Neutrophils % 60.4 % Lymphocytes % 24.4 % Monocytes % 8.4 % Eosinophils % 4.1 % Basophils % 0.9 % Neutrophils # 9.1 H (1.6-8.9) K/mcL Lymphocytes # 3.7 (0.6-4.6) K/mcL Monocytes # 1.3 (0.0-1.3) K/mcL Eosinophils # 0.6 (0.0-0.6) K/mcL Basophils # 0.1 (0.0-0.2) K/mcL Sodium 138 (136-145) mEq/L Potassium 4.2 (3.5-5.1) mEq/L Chloride 108 H (98-107) mEq/L Carbon Dioxide 20 L (23-29) mEq/L BUN 16 (6-20) mg/dL Creatinine 0.88 (0.70-1.30) mg/dL Est GFR ( Amer) > 60 (> 60) Est GFR (Non-Af Amer) > 60 (> 60) BUN/Creatinine Ratio 18 (6-26) Glucose 96 (70-105) mg/dL Calculated Osmolality 287 (280-300) Calcium 9.1 (8.6-10.3) mg/dL TSH 3.620 (0.340-5.600) mcIU/mL Urine Color Yellow (Yellow) Urine Clarity Clear (Clear) Urine pH 7.0 (5.0-8.0) pH Units Ur Specific [place] > 1.030 H (1.010-1.025) Urine Protein Negative (Neg-Trace) mg/dL Urine Glucose (UA) Normal (Normal) mg/dL Urine Ketones Negative (Negative) mg/dL Urine Blood Negative (Negative) Urine Nitrite Negative (Negative) Urine Bilirubin Negative (Negative) Urine Urobilinogen Normal (Normal) mg/dL Ur Leukocyte Esterase Negative (Negative) Salicylates < 2.5 L (15.0-30.0) mg/dL Urine Opiates Screen (Rpcqij=407) ng/mL Acetaminophen < 10 L (10-20) mcg/mL Ur Barbiturates Screen (Xymqqu=539) ng/mL Ur Phencyclidine Scrn (Cutoff=25) ng/mL Ur Amphetamines Screen (Uayqeq=3047) ng/mL U Benzodiazepines Scrn (Wotbmo=333) ng/mL Urine Cocaine Screen (Cutoff= 300) ng/mL U Marijuana (THC) Screen (Cutoff = 50) ng/mL Ur Drug Screen Interp Ethyl Alcohol < 10 (Less than 10) mg/dL 03/07/18 Range/Units 21:21 WBC (4.3-11.1) K/mcL RBC (4.19-5.50) M/mcL Hgb (12.9-16.9) g/dL Hct (37.5-50.1) % MCV (83.0-100.0) fL MCH (28.0-33.3) pg MCHC (31.6-35.5) g/dL RDW (11.5-14.5) % Plt Count (140-400) K/mcL MPV (9.4-12.4) fL Immature Gran % (0-4) % Seg Neutrophils % % Lymphocytes % % Monocytes % % Eosinophils % % Basophils % % Neutrophils # (1.6-8.9) K/mcL Lymphocytes # (0.6-4.6) K/mcL Monocytes # (0.0-1.3) K/mcL Eosinophils # (0.0-0.6) K/mcL Basophils # (0.0-0.2) K/mcL Sodium (136-145) mEq/L Potassium (3.5-5.1) mEq/L Chloride (98-107) mEq/L Carbon Dioxide (23-29) mEq/L BUN (6-20) mg/dL Creatinine (0.70-1.30) mg/dL Est GFR ( Amer) (> 60) Est GFR (Non-Af Amer) (> 60) BUN/Creatinine Ratio (6-26) Glucose (70-105) mg/dL Calculated Osmolality (280-300) Calcium (8.6-10.3) mg/dL TSH (0.340-5.600) mcIU/mL Urine Color (Yellow) Urine Clarity (Clear) Urine pH (5.0-8.0) pH Units Ur Specific [place] (1.010-1.025) Urine Protein (Neg-Trace) mg/dL Urine Glucose (UA) (Normal) mg/dL Urine Ketones (Negative) mg/dL Urine Blood (Negative) Urine Nitrite (Negative) Urine Bilirubin (Negative) Urine Urobilinogen (Normal) mg/dL Ur Leukocyte Esterase (Negative) Salicylates (15.0-30.0) mg/dL Urine Opiates Screen Negative (Xvsokd=293) ng/mL Acetaminophen (10-20) mcg/mL Ur Barbiturates Screen Negative (Tnemek=622) ng/mL Ur Phencyclidine Scrn Negative (Cutoff=25) ng/mL Ur Amphetamines Screen Negative (Rdrjgz=2294) ng/mL U Benzodiazepines Scrn Negative (Ynirhw=067) ng/mL Urine Cocaine Screen Negative (Cutoff= 300) ng/mL U Marijuana (THC) Screen Negative (Cutoff = 50) ng/mL Ur Drug Screen Interp See Below Ethyl Alcohol (Less than 10) mg/dL Psychiatric Medical Clearance - Medical Clearance Checklist Medical History: No Social History Section defined Current Vitals: Last Vital Signs Temp 97.5 F L 03/07/18 20:44 Pulse 105 03/07/18 20:44 Resp 18 03/07/18 20:44 BP 137/87 03/07/18 20:44 Pulse Ox 96 03/07/18 20:44 Psychiatric Lab Panel: Drug Levels and Toxicity 03/07/18 03/07/18 21:14 21:21 Urine Opiates Screen Negative Acetaminophen < 10 L Ur Barbiturates Screen Negative Ur Phencyclidine Scrn Negative Ur Amphetamines Screen Negative U Benzodiazepines Scrn Negative Urine Cocaine Screen Negative U Marijuana (THC) Screen Negative Ethyl Alcohol < 10 Abnormal Labs: Abnormal lab results WBC 15.0 K/mcL (4.3-11.1) H 03/07/18 21:14 Neutrophils # 9.1 K/mcL (1.6-8.9) H 03/07/18 21:14 Chloride 108 mEq/L (98-107) H 03/07/18 21:14 Carbon Dioxide 20 mEq/L (23-29) L 03/07/18 21:14 Ur Specific [place] > 1.030 (1.010-1.025) H 03/07/18 21:21 Salicylates < 2.5 mg/dL (15.0-30.0) L 03/07/18 21:14 Acetaminophen < 10 mcg/mL (10-20) L 03/07/18 21:14 Statement of Medical Clearance: I have evaluated the patient, reviewed diagnostic information, and certify that the patient's medical condition is sufficiently stable that transfer to the psychiatric unit does not pose a significant risk of deterioration.
[2018-03-07 21:26] LABS: Basophils # 0.1 K/mcL (0.0-0.2); Basophils % 0.9 %; Eosinophils # 0.6 K/mcL (0.0-0.6); Eosinophils % 4.1 %; Hematocrit 44.2 % (37.5-50.1); Hemoglobin 14.7 g/dL (12.9-16.9); Immature Granulocytes % 1.8 % (0-4); Lymphocytes # 3.7 K/mcL (0.6-4.6); Lymphocytes % 24.4 %; Mean Corpuscular HGB Conc 33.3 g/dL (31.6-35.5); Mean Corpuscular Hemoglobin 29.9 pg (28.0-33.3); Mean Corpuscular Volume 89.8 fL (83.0-100.0); Mean Platelet Volume 10.6 fL (9.4-12.4); Monocytes # 1.3 K/mcL (0.0-1.3); Monocytes % 8.4 %; Neutrophils # 9.1 K/mcL (1.6-8.9); Platelet Count 268 K/mcL (140-400); Red Blood Count 4.92 M/mcL (4.19-5.50); Red Cell Distribution Width 12.2 % (11.5-14.5); Segmented Neutrophils % 60.4 %
--- NOTE | 2018-03-07 21:28 | Emergency Department Note ---
Disposition Clinical Impression: Acute psychosis, Chronic schizophrenia, Suicidal ideation Disposition: Admitted As Inpatient Condition: Good Referrals: NONE,PCP [Primary Care Provider] - Forms: ED Satisfaction Letter General Adult HPI - General Chief complaint: ED Psychiatric Symptoms Stated complaint: Hearing voices say to hurt himslef. Time Seen by Provider: 03/07/18 20:53 Source: patient, family Mode of arrival: ambulatory Limitations: no limitations Nursing Notes Reviewed: Yes Vital Signs Reviewed: Yes - History of Present Illness Pain Scale: 3 - Related Data Home Medications Medication Instructions Recorded Confirmed Aripiprazole Lauroxil [Aristada] 882 mg IM QMONTH 09/27/16 12/31/16 Ranitidine HCl [Acid Toll Collector] 150 mg PO BID 09/27/16 12/31/16 Previous Rx's Medication Instructions Recorded Buspirone HCl [Buspar] 10 mg PO TID #90 tab 01/02/17 Divalproex (24 HR) [Depakote ER 1,500 mg PO HS #90 01/02/17 (24 HR)] FLUoxetine HCl [Prozac] 20 mg PO DAILY #30 01/02/17 Lisinopril [Zestril] 2.5 mg PO QAM tab 01/02/17 traZODone [TraZODone] 50 mg PO HS PRN #30 tab 01/02/17 Amoxicillin 875 mg PO BID #20 tablet 01/02/18 Phenylephrine HCl/Prometh HCl 5 - 10 ml PO QID PRN #180 syrup 01/02/18 [Promethazine-Phenylephrine Syr] Allergies Allergy/AdvReac Type Severity Reaction Status Date / Time No Known Allergies Allergy Verified 01/02/18 17:29 Past Medical History - Past Medical History Medical history: Reports: no medical history Surgical history: Reports: no surgical history Psychiatric history: Reports: bipolar, schizophrenia, previous psychiatric hospitalization - Social History Smoking Status: Current every day smoker Smokeless Tobacco Status: No Alcohol use: Reports: none Drug use: Reports: marijuana Physical Exam - General Limitations: no limitations General appearance: alert, anxious Course Vital Signs Temperature 97.5 F L 03/07/18 20:44 Pulse Rate 105 03/07/18 20:44 Respiratory Rate 18 03/07/18 20:44 Blood Pressure 137/87 03/07/18 20:44 O2 Sat by Pulse Oximetry 96 03/07/18 20:44 Temperature 97.5 F L 03/07/18 20:44 Pulse Rate 105 03/07/18 20:44 Respiratory Rate 18 03/07/18 20:44 Blood Pressure 137/87 03/07/18 20:44 O2 Sat by Pulse Oximetry 96 03/07/18 20:44 Oxygen Delivery Oxygen Delivery Room Air Medical Decision Making - Lab Data Lab results reviewed: Yes I reviewed the patient's lab results. Result diagrams: 03/07/18 21:14 03/07/18 21:14 Lab Results 03/07/18 03/07/18 03/07/18 Range/Units 21:14 21:14 21:21 WBC 15.0 H (4.3-11.1) K/mcL RBC 4.92 (4.19-5.50) M/mcL Hgb 14.7 (12.9-16.9) g/dL Hct 44.2 (37.5-50.1) % MCV 89.8 (83.0-100.0) fL MCH 29.9 (28.0-33.3) pg MCHC 33.3 (31.6-35.5) g/dL RDW 12.2 (11.5-14.5) % Plt Count 268 (140-400) K/mcL MPV 10.6 (9.4-12.4) fL Immature Gran % 1.8 (0-4) % Seg Neutrophils % 60.4 % Lymphocytes % 24.4 % Monocytes % 8.4 % Eosinophils % 4.1 % Basophils % 0.9 % Neutrophils # 9.1 H (1.6-8.9) K/mcL Lymphocytes # 3.7 (0.6-4.6) K/mcL Monocytes # 1.3 (0.0-1.3) K/mcL Eosinophils # 0.6 (0.0-0.6) K/mcL Basophils # 0.1 (0.0-0.2) K/mcL Sodium 138 (136-145) mEq/L Potassium 4.2 (3.5-5.1) mEq/L Chloride 108 H (98-107) mEq/L Carbon Dioxide 20 L (23-29) mEq/L BUN 16 (6-20) mg/dL Creatinine 0.88 (0.70-1.30) mg/dL Est GFR ( Amer) > 60 (> 60) Est GFR (Non-Af Amer) > 60 (> 60) BUN/Creatinine Ratio 18 (6-26) Glucose 96 (70-105) mg/dL Calculated Osmolality 287 (280-300) Calcium 9.1 (8.6-10.3) mg/dL TSH 3.620 (0.340-5.600) mcIU/mL Urine Color Yellow (Yellow) Urine Clarity Clear (Clear) Urine pH 7.0 (5.0-8.0) pH Units Ur Specific [place] > 1.030 H (1.010-1.025) Urine Protein Negative (Neg-Trace) mg/dL Urine Glucose (UA) Normal (Normal) mg/dL Urine Ketones Negative (Negative) mg/dL Urine Blood Negative (Negative) Urine Nitrite Negative (Negative) Urine Bilirubin Negative (Negative) Urine Urobilinogen Normal (Normal) mg/dL Ur Leukocyte Esterase Negative (Negative) Salicylates < 2.5 L (15.0-30.0) mg/dL Urine Opiates Screen (Pmulpp=376) ng/mL Acetaminophen < 10 L (10-20) mcg/mL Ur Barbiturates Screen (Yfmrpo=539) ng/mL Ur Phencyclidine Scrn (Cutoff=25) ng/mL Ur Amphetamines Screen (Hfsvri=1768) ng/mL U Benzodiazepines Scrn (Mshyyb=186) ng/mL Urine Cocaine Screen (Cutoff= 300) ng/mL U Marijuana (THC) Screen (Cutoff = 50) ng/mL Ur Drug Screen Interp Ethyl Alcohol < 10 (Less than 10) mg/dL 03/07/18 Range/Units 21:21 WBC (4.3-11.1) K/mcL RBC (4.19-5.50) M/mcL Hgb (12.9-16.9) g/dL Hct (37.5-50.1) % MCV (83.0-100.0) fL MCH (28.0-33.3) pg MCHC (31.6-35.5) g/dL RDW (11.5-14.5) % Plt Count (140-400) K/mcL MPV (9.4-12.4) fL Immature Gran % (0-4) % Seg Neutrophils % % Lymphocytes % % Monocytes % % Eosinophils % % Basophils % % Neutrophils # (1.6-8.9) K/mcL Lymphocytes # (0.6-4.6) K/mcL Monocytes # (0.0-1.3) K/mcL Eosinophils # (0.0-0.6) K/mcL Basophils # (0.0-0.2) K/mcL Sodium (136-145) mEq/L Potassium (3.5-5.1) mEq/L Chloride (98-107) mEq/L Carbon Dioxide (23-29) mEq/L BUN (6-20) mg/dL Creatinine (0.70-1.30) mg/dL Est GFR ( Amer) (> 60) Est GFR (Non-Af Amer) (> 60) BUN/Creatinine Ratio (6-26) Glucose (70-105) mg/dL Calculated Osmolality (280-300) Calcium (8.6-10.3) mg/dL TSH (0.340-5.600) mcIU/mL Urine Color (Yellow) Urine Clarity (Clear) Urine pH (5.0-8.0) pH Units Ur Specific [place] (1.010-1.025) Urine Protein (Neg-Trace) mg/dL Urine Glucose (UA) (Normal) mg/dL Urine Ketones (Negative) mg/dL Urine Blood (Negative) Urine Nitrite (Negative) Urine Bilirubin (Negative) Urine Urobilinogen (Normal) mg/dL Ur Leukocyte Esterase (Negative) Salicylates (15.0-30.0) mg/dL Urine Opiates Screen Negative (Gnyhld=804) ng/mL Acetaminophen (10-20) mcg/mL Ur Barbiturates Screen Negative (Ktenyg=971) ng/mL Ur Phencyclidine Scrn Negative (Cutoff=25) ng/mL Ur Amphetamines Screen Negative (Ltdjbz=2099) ng/mL U Benzodiazepines Scrn Negative (Rewnfs=494) ng/mL Urine Cocaine Screen Negative (Cutoff= 300) ng/mL U Marijuana (THC) Screen Negative (Cutoff = 50) ng/mL Ur Drug Screen Interp See Below Ethyl Alcohol (Less than 10) mg/dL - EKG Data EKG #1 EKG attestation: Yes I reviewed and interpreted this EKG. EKG results narrative: Normal sinus rhythm with ventricular rate of 98. No acute ST segment elevation or depression. No arrhythmia or ectopy. Attestation Statement - Attestation Attestation: I, Akil Cordon MD, personally evaluated this patient and discussed their management with the resident physician. I reviewed the resident's note and agree with the documented findings, medical decision making, and plan of care. 27-year-old male presents to the emergency department with a complaint of suic idal ideation and auditory hallucinations. Patient has a history of schizophrenia. Denies homicidal ideation. He did recently have some medication changes. Patient states he does not feel like he wants to hurt himself but he is afraid that the voices are going to convince him to hurt himself. On examination patient is a well-developed well-nourished male in no acute distress. He is alert and oriented 3. There is no cyanosis or diaphoresis. Breath sounds are clear and equal bilaterally. Heart regular with a mild tachycardia. Abdomen soft and nontender with normal bowel sounds. EKG shows normal sinus rhythm with ventricular rate of 98. No acute ST segment elevation or depression. No arrhythmia or ectopy. Labs reviewed and unremarkable. Tox screen negative. Alcohol negative. [address] psychiatry service was consulted and evaluated the patient in the emergency department and patient is being admitted to the [address] psychiatric unit.
[2018-03-07 21:48] LABS: Acetaminophen < 10 mcg/mL (10-20); BUN/Creatinine Ratio 18 (6-26); Blood Urea Nitrogen 16 mg/dL (6-20); Calcium 9.1 mg/dL (8.6-10.3); Carbon Dioxide 20 mEq/L (23-29); Chloride 108 mEq/L (98-107); Ethanol < 10 mg/dL (Less than 10); Glucose 96 mg/dL (70-105); Osmolality,Calculated 287 (280-300); Potassium 4.2 mEq/L (3.5-5.1); Salicylate < 2.5 mg/dL (15.0-30.0); Sodium 138 mEq/L (136-145); eGFR For Non-African Americans > 60 (> 60)
[2018-03-07 21:48] LABS: Bilirubin,Urine Negative (Negative); Blood,Urine Negative (Negative); Clarity,Urine Clear (Clear); Color,Urine Yellow (Yellow); Glucose,Urine (UA) Normal (Normal); Ketones,Urine Negative (Negative); Leukocyte Esterase,Urine Negative (Negative); Nitrite,Urine Negative (Negative); Protein,Urine Negative (Neg-Trace); Specific Gravity,Urine > 1.030 (1.010-1.025); Urobilinogen,Urine Normal (Normal)
[2018-03-07 22:00] LABS: Amphetamine Screen,Urine Negative ng/mL (Cutoff=1000); Barbiturate Screen,Urine Negative ng/mL (Cutoff=200); Benzodiazepines Screen,Urine Negative ng/mL (Cutoff=200); Cannabinoid Screen,Urine Negative ng/mL (Cutoff = 50); Cocaine Screen,Urine Negative ng/mL (Cutoff= 300); Opiate Screen,Urine Negative ng/mL (Cutoff=300); Phencyclidine Screen,Urine Negative ng/mL (Cutoff=25)
[2018-03-08] MEDS ORDERED: ARIPiprazole 5 MG TABLET PO STA (00:07)
[2018-03-08] MEDS ORDERED: *HR* LORazepam 2 MG/ML VIAL IM PRN (11:44)
[2018-03-08] MEDS ORDERED: *HR* LORazepam 1 MG TABLET PO PRN (11:44)
[2018-03-08] MEDS ORDERED: Mag Hydrox/Al Hydrox/Simeth 30 ML UDC PO PRN (11:44)
[2018-03-08] MEDS ORDERED: Haloperidol Lactate 5 MG/ML VIAL IM PRN (11:44)
[2018-03-08] MEDS ORDERED: Ibuprofen 400 MG TABLET PO PRN (11:44)
[2018-03-08] MEDS ORDERED: MOM Conc 10 ML UD.LIQ PO PRN (11:44)
[2018-03-08] MEDS: Nicotine 21 MG PATCH.TD24 TD SCH (12:31)
--- NOTE | 2018-03-08 15:15 | Psychiatry History & Physical ---
Date of Encounter: 03/08/18 Time of Encounter: 11:00 History of Present Illness Patient Stated Chief Complaint: Patient having depression and suicidal ideation Medicare Admission Attestation: For traditional Medicare patients the provided hospital inpatient services are reasonable and necessary and in the case of services not specified as inpatient-only under 42 CFR 419.22 (n), that they are appropriately provided as inpatient services in accordance 42 CFR 412.3. For Critical Access Hospital the patient may reasonably be expected to be discharged or transferred to a hospital within 96 hours after admission to the Critical Access Hospital. Admitted From: Emergency Dept Plans for Post Hospital Care: Home History of Present Illness: Mr. Bass is a 27 year old male with a history of schizophrenia who was brought to the emergency room due to hearing voices telling him to hurt himself. Patient's oral Abilify had been reduced about 2 weeks prior from 5mg/d to 2mg/d. After the reduction he noted the voices increasing. Patient also gets Luis injections. Patient also complained of restlessness and anxiety. In the past he had been on Clonazepam , but this was discontinued and Buspar was started and was increased to 15mg TID when his Abilify was decreased. Patient admitted to ideas of references and auditory hallucinations. Patient complianed of racing thoughts he associated with his anxiety. Patient stated his appetite was good and infact patient was overweight. Patient rated his depression a 5 on a scale of 1-10, 10 worst. and Anxiety a 7. Patient displayed figidiness and some difficulty expressing himself. He did laugh spontaneously though at a joke. Patient lives in a home woith a farrahse and her and some other patients. The nurse administers his medications. Patient's meds on admission include Abilify 2mg/d Aristada 882mg/mo Buspar 15mg TID Depakote 1500mg/hs Prozac 60mg/d Past Med Surg Social Fam HX - Past Medical History Medical history: no medical history - Past Psychiatric History Psychiatric history: Reports: schizophrenia, previous psychiatric hospitalization Past psychiatric history details: Patient diagnosed at the age of [age] year old. Living in a private type half-way Family psychiatric history: Unknown Family History of Suicide: Unknown - Past Surgical History Surgical History: other - Social History Smoking Status: Current every day smoker Smokeless Tobacco Status: No Alcohol use: occasionally Drug use: none Occupational status: unemployed Current living situation: Shelter Activity Level: Independent ambulation Recent Out of Country Travel Within the Last 8 Weeks: No Exposure or Possible Exposure to Illness During Travel: No - Family History Mother Hx Family Cardiac Disorders: Yes (blood clots) Father Hx Family HEENT Disorders: Yes (glaucoma) Medications & Allergies Aripiprazole Lauroxil [Aristada] 882 mg IM QMONTH 09/27/16 [History] Ranitidine HCl [Acid Lead Coater] 150 mg PO BID 09/27/16 [History] Buspirone HCl [Buspar] 10 mg PO TID #90 tab 01/02/17 [Rx] Divalproex (24 HR) [Depakote ER (24 HR)] 1,500 mg PO HS #90 01/02/17 [Rx] Lisinopril [Zestril] 2.5 mg PO QAM tab 01/02/17 [Rx] traZODone [TraZODone] 50 mg PO HS PRN #30 tab 01/02/17 [Rx] Amoxicillin 875 mg PO BID #20 tablet 01/02/18 [Rx] Phenylephrine HCl/Prometh HCl [Promethazine-Phenylephrine Syr] 5 - 10 ml PO QID PRN #180 syrup 01/02/18 [Rx] FLUoxetine HCl [Prozac] 60 mg PO DAILY 03/08/18 [History] Allergy/AdvReac Type Severity Reaction Status Date / Time No Known Allergies Allergy Verified 01/02/18 17:29 Review of Systems Constitutional: Denies: fever, chills, weakness, weight change Ears, Nose, Throat: Reports: congestion, other Cardiovascular: Denies: chest pain, palpitations, dyspnea on exertion Respiratory: Reports: cough Gastrointestinal: Reports: other Genitourinary male: Denies: urgency, dysuria, frequency, genital lesions Musculoskeletal: Denies: joint swelling, joint pain Integumentary: Denies: rash, lesions, pruritus Neurological: Denies: headache, weakness, numbness, memory loss Psychiatric: Reports: depression, anxiety, suicidal ideation, auditory hallucinations, difficulty concentrating Endocrine: Denies: fatigue, heat or cold intolerance Hematologic/Lymphatic: Denies: easy bruising, lymphadenopathy Allergic/Immunologic: Reports: other (seasonal allergy) Exam - HEENT Head exam IM: Present: atraumatic Eye exam IM: Present: EOMI, normal appearance, PERRL ENT exam IM: Present: normal exam - Neurological Neurological exam: Present: CN II-XII intact - Respiratory Respiratory exam IM: Present: CTAB - GI/Abdominal GI/Abdominal exam IM: Present: normal bowel sounds, soft. Absent: tenderness - Extremities Extremities exam IM: Present: full ROM - Skin Skin exam IM: Present: dry, warm - Constitutional Vitals: Temp Pulse Resp BP Pulse Ox 97.9 F 104 18 140/88 96 03/08/18 09:00 03/08/18 09:00 03/08/18 09:00 03/08/18 09:00 03/08/18 09:00 General appearance: age & developmentally appropriate, well-groomed, well- nourished - Musculoskeletal Gait: normal Station: relaxed Strength & Tone: normal for patient - Psychiatric Patient Orientation: Yes Person, Yes Time, Yes Place Level of alertness: Alert Behavior: calm, cooperative, guarded, withdrawn Psychomotor activity: Normal Eye Contact: Fleeting Contact Mood Description: Depressed, Anxious Affect description: blunted Speech Volume: Normal Speech pattern: normal tone, coherent, slowed, impoverished Language & Vocabulary: consistent with education Thought Process: Thought Blocking, Racing Thought Content: Yes Suicidal ideation, Yes Ideas of reference Perceptual Disturbances: No Auditory hallucinations, No Visual hallucinations Attention Span Ability: Capable of Focused Attention Memory Description: Grossly Intact Patient Reliability: Reliable Historian Fund of knowledge: Yes below average Intelligence Estimate: Below Average Judgment: Fair Insight: Minimal Results - Drug Levels and Toxicology Drug Levels and Toxicology: Drug Levels and Toxicity 03/07/18 03/07/18 21:14 21:21 Urine Opiates Screen Negative Acetaminophen < 10 L Ur Barbiturates Screen Negative Ur Phencyclidine Scrn Negative Ur Amphetamines Screen Negative U Benzodiazepines Scrn Negative Urine Cocaine Screen Negative U Marijuana (THC) Screen Negative Ethyl Alcohol < 10 - Labs Labs: Laboratory Last Values WBC 15.0 K/mcL (4.3-11.1) H 03/07/18 21:14 RBC 4.92 M/mcL (4.19-5.50) 03/07/18 21:14 Hgb 14.7 g/dL (12.9-16.9) 03/07/18 21:14 Hct 44.2 % (37.5-50.1) 03/07/18 21:14 MCV 89.8 fL (83.0-100.0) 03/07/18 21:14 MCH 29.9 pg (28.0-33.3) 03/07/18 21:14 MCHC 33.3 g/dL (31.6-35.5) 03/07/18 21:14 RDW 12.2 % (11.5-14.5) 03/07/18 21:14 Plt Count 268 K/mcL (140-400) 03/07/18 21:14 MPV 10.6 fL (9.4-12.4) 03/07/18 21:14 Immature Gran % 1.8 % (0-4) 03/07/18 21:14 Seg Neutrophils % 60.4 % 03/07/18 21:14 Lymphocytes % 24.4 % 03/07/18 21:14 Monocytes % 8.4 % 03/07/18 21:14 Eosinophils % 4.1 % 03/07/18 21:14 Basophils % 0.9 % 03/07/18 21:14 Neutrophils # 9.1 K/mcL (1.6-8.9) H 03/07/18 21:14 Lymphocytes # 3.7 K/mcL (0.6-4.6) 03/07/18 21:14 Monocytes # 1.3 K/mcL (0.0-1.3) 03/07/18 21:14 Eosinophils # 0.6 K/mcL (0.0-0.6) 03/07/18 21:14 Basophils # 0.1 K/mcL (0.0-0.2) 03/07/18 21:14 Sodium 138 mEq/L (136-145) 03/07/18 21:14 Potassium 4.2 mEq/L (3.5-5.1) 03/07/18 21:14 Chloride 108 mEq/L (98-107) H 03/07/18 21:14 Carbon Dioxide 20 mEq/L (23-29) L 03/07/18 21:14 BUN 16 mg/dL (6-20) 03/07/18 21:14 Creatinine 0.88 mg/dL (0.70-1.30) 03/07/18 21:14 Est GFR ( Amer) > 60 (> 60) 03/07/18 21:14 Est GFR (Non-Af Amer) > 60 (> 60) 03/07/18 21:14 BUN/Creatinine Ratio 18 (6-26) 03/07/18 21:14 Glucose 96 mg/dL (70-105) 03/07/18 21:14 Calculated Osmolality 287 (280-300) 03/07/18 21:14 Calcium 9.1 mg/dL (8.6-10.3) 03/07/18 21:14 TSH 3.620 mcIU/mL (0.340-5.600) 03/07/18 21:14 Urine Color Yellow (Yellow) 03/07/18 21:21 Urine Clarity Clear (Clear) 03/07/18 21:21 Urine pH 7.0 pH Units (5.0-8.0) 03/07/18 21:21 Ur Specific [place] > 1.030 (1.010-1.025) H 03/07/18 21:21 Urine Protein Negative mg/dL (Neg-Trace) 03/07/18 21:21 Urine Glucose (UA) Normal mg/dL (Normal) 03/07/18 21:21 Urine Ketones Negative mg/dL (Negative) 03/07/18 21:21 Urine Blood Negative (Negative) 03/07/18 21:21 Urine Nitrite Negative (Negative) 03/07/18 21:21 Urine Bilirubin Negative (Negative) 03/07/18 21:21 Urine Urobilinogen Normal mg/dL (Normal) 03/07/18 21:21 Ur Leukocyte Esterase Negative (Negative) 03/07/18 21:21 Salicylates < 2.5 mg/dL (15.0-30.0) L 03/07/18 21:14 Urine Opiates Screen Negative ng/mL (Ycvdme=427) 03/07/18 21:21 Acetaminophen < 10 mcg/mL (10-20) L 03/07/18 21:14 Ur Barbiturates Screen Negative ng/mL (Tsojwf=100) 03/07/18 21:21 Ur Phencyclidine Scrn Negative ng/mL (Cutoff=25) 03/07/18 21:21 Ur Amphetamines Screen Negative ng/mL (Mbxwyu=2879) 03/07/18 21:21 U Benzodiazepines Scrn Negative ng/mL (Bkwajl=850) 03/07/18 21:21 Urine Cocaine Screen Negative ng/mL (Cutoff= 300) 03/07/18 21:21 U Marijuana (THC) Screen Negative ng/mL (Cutoff = 50) 03/07/18 21:21 Ur Drug Screen Interp See Below 03/07/18 21:21 Ethyl Alcohol < 10 mg/dL (Less than 10) 03/07/18 21:14 - Impressions labs on admit essentially WNL Assessment and Plan (1) Suicidal ideation Current visit: No Status: Acute Plan: Admit inpatient for safety and stabilization, Close observation, Suicide Precautions per unit protocol, Encourage participation in unit milieu, Group Therapy, Monitor sleep, Monitor appetite Additional Plan: Increase patient's ABilify back to 5mg/d Risks, benefits, side effects, alternatives discussed w/pt: Yes Patient agreeable to treatment: Yes Plans for Post Hospital Care: Hospice - Home Estimated Length of Stay (Days): 5 (2) Bipolar I disorder with mixed features Current visit: No Status: Acute Plan: Admit inpatient for safety and stabilization, Close observation, Suicide Precautions per unit protocol, Encourage participation in unit milieu, Group Therapy, Monitor sleep, Monitor appetite Additional Plan: Increase Patient's Abilify abck to 5mg/d. Get Depakote level Risks, benefits, side effects, alternatives discussed w/pt: Yes Patient agreeable to treatment: Yes
--- NOTE | 2018-03-08 19:03 | Electrocardiograph Report ---
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
[2018-03-08] MEDS: hydrOXYzine pamoate 25 MG CAPSULE PO PRN (19:38)
[2018-03-08] MEDS: ARIPiprazole 5 MG TABLET PO SCH (20:15)
[2018-03-08] MEDS: traZODone 50 MG TABLET PO PRN (20:15)
[2018-03-09] MEDS: Nicotine 21 MG PATCH.TD24 TD SCH (08:41)
[2018-03-09] MEDS: hydrOXYzine pamoate 25 MG CAPSULE PO PRN (15:16)
[2018-03-09] MEDS ORDERED: hydrOXYzine pamoate 25 MG CAPSULE PO PRN (20:12)
[2018-03-09] MEDS ORDERED: Divalproex (24 HR) 500 MG TABLET PO SCH ×2 (21:00→22:15)
--- NOTE | 2018-03-09 21:26 | Psychiatry Progress Note ---
Date of Encounter: 03/09/18 Time of Encounter: 08:40 Subjective Interval history: Obed is a 27-year-old male with bipolar disorder who is seen today for follow-up. He was admitted yesterday with severe depression and thoughts of wanting to harm himself. Patient was also reporting some paranoia and psychosis. Today he reports that the voices have "gone away." Still he feels depressed at times and struggles a lot with anxiety. "My mind just goes all the time." He has tried multiple medications for this. He had adjustments to his psychiatric medications prior to being admitted here to the hospital. He was recently started on benztropine because of the concern that restlessness may be secondary to his Abilify. Patient does not feel that the benztropine has been that helpful. He states Xanax is the only medicine that has been helpful for his anxiety in the past. He does take BuSpar but this was not restarted on admission. He has also taken Vistaril in the past which has been somewhat helpful. Today he denies suicidal ideation but still feels hopeless at times. He sleeps well with his regular nighttime meds provided at home. Review of Systems Constitutional: Denies: fever, chills, weakness, weight change Eyes: Denies: eye pain, vision change Ears, Nose, Throat: Denies: ear pain, throat pain, dental pain, hearing loss, congestion Cardiovascular: Denies: chest pain, palpitations, dyspnea on exertion Respiratory: Denies: cough, dyspnea, wheezes Gastrointestinal: Denies: abdominal pain, nausea, vomiting, diarrhea, constipation Musculoskeletal: Denies: joint swelling, joint pain Neurological: Denies: headache, weakness, numbness, memory loss Psychiatric: Reports: depression, anxiety, suicidal ideation, auditory hallucinations, difficulty concentrating, hopelessness, irritability, panic attacks Results - Vital Signs Vital Signs: Temp Pulse Resp BP Pulse Ox 98.6 F 101 22 124/81 98 03/09/18 19:30 03/09/18 19:30 03/09/18 19:30 03/09/18 19:30 03/09/18 19:30 - Labs Labs: Laboratory Results - last 24 hr 03/09/18 07:30 Valproic Acid 18 L Assessment and Plan (1) Bipolar I disorder with mixed features Current visit: No Status: Acute Plan: Continue hospitalization, Close observation, Suicide Precautions per unit protocol, Encourage participation in unit milieu, Group Therapy, Monitor sleep, Monitor appetite Additional Plan: Continue Abilify at current dosage. Depakote will be restarted. Level was 18 patient was clearly not taking as prescribed outside of the hospital. We will monitor this closely. Risks, benefits, side effects, alternatives discussed w/pt: Yes Patient agreeable to treatment: Yes (2) Anxiety Current visit: Yes Status: Acute Plan: Continue hospitalization, Close observation, Suicide Precautions per unit protocol, Encourage participation in unit milieu, Group Therapy, Monitor sleep, Monitor appetite Additional Plan: Restart buspirone for anxiety. Vistaril as needed. Encourage meditation and positive coping strategies for stressors. Risks, benefits, side effects, alternatives discussed w/pt: Yes Patient agreeable to treatment: Yes Consult Discharge Plan - Plan Referrals: [facility] [Outside] - 03/26/18 8:20 am (The above appointment is with Dr. Hampton for outpatient psychiatric assessment and medication management services. Please arrive 10 minutes early to all appointments to complete the check-in process. Please bring your insurance card (or [facility] award letter) and photo ID. If you are unable to keep any scheduled appointment, 24 hour business notice of cancellation is expected. The above appointment(s) reflects first availability. You may contact the office regularly to check for cancellations that may allow you to be seen sooner. ) [facility] [Outside] - 03/12/18 1:00 pm (The above appointment is with Jordana Hodge for outpatient mental health counseling services.) Psychiatry Exam - Constitutional Vitals: Temp Pulse Resp BP Pulse Ox 98.6 F 101 22 124/81 98 03/09/18 19:30 03/09/18 19:30 03/09/18 19:30 03/09/18 19:30 03/09/18 19:30 General appearance: unkempt, obese - Musculoskeletal Gait: slow Station: stooped Strength & Tone: normal for patient - Psychiatric Patient Orientation: Yes Person, Yes Circumstance Level of alertness: Alert Behavior: cooperative Psychomotor activity: Normal Eye Contact: Diverts Contact Mood Description: Depressed Affect description: blunted Speech Volume: Normal Speech pattern: slowed Language & Vocabulary: limited Thought Process: [place], Slowed Thinking Thought Content: No Suicidal ideation, No Homicidal ideation Perceptual Disturbances: Yes Auditory hallucinations Attention Span Ability: Capable of Focused Attention Memory Description: Immediate Intact, Recent Intact Patient Reliability: Reliable Historian Fund of knowledge: Yes below average Intelligence Estimate: Below Average Judgment: Limited Insight: Minimal
[2018-03-09] MEDS: ARIPiprazole 5 MG TABLET PO SCH (22:25)
[2018-03-09] MEDS: Divalproex (12 HR) 500 MG TABLET PO SCH (22:25)
[2018-03-09] MEDS: traZODone 50 MG TABLET PO PRN (22:25)
[2018-03-10] MEDS: Divalproex (12 HR) 500 MG TABLET PO SCH ×2 (08:42→21:09)
[2018-03-10] MEDS: FLUoxetine 20 MG CAPSULE PO SCH (08:42)
[2018-03-10] MEDS: Loratadine 10 MG TABLET PO SCH (08:42)
[2018-03-10] MEDS: Nicotine 21 MG PATCH.TD24 TD SCH (08:43)
[2018-03-10] MEDS: Azelastine 0.1% Nasal Spray 30 ML BOTTLE NS SCH ×2 (08:50→21:39)
--- NOTE | 2018-03-10 14:27 | Psychiatry Progress Note ---
Date of Encounter: 03/10/18 Time of Encounter: 13:45 Subjective Interval history: Pt is a 27 yo,, male, who presents for Bipolar disorder, currently depressed. Pt noted that he feels he is doing better. Pt denied any side effects to current medications. Pt noted he felt safe and comfortable on the unit and will tell staff if things get bad again. Pt was in agreement with current treatment plan. Pt noted that he is doing alright today. Pt noted he slept alright last night. Pt noted his appetite is decreased. Pt rated his depression a 0, on a scale of zero to ten with ten being the worst and zero being none. Pt rate his anxiety a 8, on the same scale. Pt denied any auditory or visual hallucinations. Pt denied any current thoughts to harm himself or anyone else. Pt noted he feels safe for discharge home No TD noted, AIMS=0 Tobacco: 1.5 ppd Alcohol: Denies any current Street: denies any current Caffeine: 2-3 drinks per day Pt denies any hx of HIV, Hep C, TBI or Seizures. 1.Interval hx 2.Continue current medications 3.Review current labs 4.Pt had an opportunity to ask questions and discuss current treatment plan. 5.Supportive therapy was provided 6.Pt encouraged to consider group or individual therapy 7.Pt was in agreement with treatment plan. 8.Pt was educated on the risks benefits and side effects of current medications. 9. Consider D/C for tomorrow. Review of Systems Constitutional: Denies: fever, chills, weakness, weight change Eyes: Denies: eye pain, vision change Ears, Nose, Throat: Denies: ear pain, throat pain, dental pain, hearing loss, congestion Cardiovascular: Denies: chest pain, palpitations, dyspnea on exertion Respiratory: Denies: cough, dyspnea, wheezes Gastrointestinal: Denies: abdominal pain, nausea, vomiting, diarrhea, constipation Musculoskeletal: Denies: joint swelling, joint pain Neurological: Denies: headache, weakness, numbness, memory loss Psychiatric: Reports: depression, anxiety, suicidal ideation, auditory hallucinations, difficulty concentrating, hopelessness, irritability, panic attacks Results - Vital Signs Vital Signs: Temp Pulse Resp BP Pulse Ox 98 F 89 18 127/85 97 03/10/18 09:00 03/10/18 09:00 03/10/18 09:00 03/10/18 09:00 03/10/18 09:00 Assessment and Plan (1) Developmental delay, moderate Current visit: Yes Status: Acute Plan: Continue hospitalization, Close observation, Suicide Precautions per unit protocol, Encourage participation in unit milieu, Group Therapy, Monitor sleep, Monitor appetite Risks, benefits, side effects, alternatives discussed w/pt: Yes Patient agreeable to treatment: Yes (2) Suicidal ideation Current visit: No Status: Acute Plan: Continue hospitalization, Close observation, Suicide Precautions per unit protocol, Encourage participation in unit milieu, Group Therapy, Monitor sleep, Monitor appetite Risks, benefits, side effects, alternatives discussed w/pt: Yes Patient agreeable to treatment: Yes (3) Bipolar I disorder with mixed features Current visit: No Status: Acute Plan: Continue hospitalization, Close observation, Suicide Precautions per unit protocol, Encourage participation in unit milieu, Group Therapy, Monitor sleep, Monitor appetite Risks, benefits, side effects, alternatives discussed w/pt: Yes Patient agreeable to treatment: Yes (4) Anxiety Current visit: Yes Status: Acute Plan: Continue hospitalization, Close observation, Suicide Precautions per unit protocol, Encourage participation in unit milieu, Group Therapy, Monitor sleep, Monitor appetite Risks, benefits, side effects, alternatives discussed w/pt: Yes Patient agreeable to treatment: Yes Consult Discharge Plan - Plan Referrals: [facility] [Outside] - 03/26/18 8:20 am (The above appointment is with Dr. Hampton for outpatient psychiatric assessment and medication management services. Please arrive 10 minutes early to all appointments to complete the check-in process. Please bring your insurance card (or [facility] award letter) and photo ID. If you are unable to keep any scheduled appointment, 24 hour business notice of cancellation is expected. The above appointment(s) reflects first availability. You may contact the office regularly to check for cancellations that may allow you to be seen sooner. ) [facility] [Outside] - 03/12/18 1:00 pm (The above appointment is with Jordana Hodge for outpatient mental health counseling services.) Psychiatry Exam - Constitutional Vitals: Temp Pulse Resp BP Pulse Ox 98 F 89 18 127/85 97 03/10/18 09:00 03/10/18 09:00 03/10/18 09:00 03/10/18 09:00 03/10/18 09:00 General appearance: age & developmentally appropriate, well-groomed, well- nourished - Musculoskeletal Gait: normal Station: relaxed Strength & Tone: normal for patient - Psychiatric Patient Orientation: Yes Person, Yes Time, Yes Place Level of alertness: Alert Behavior: calm, cooperative Psychomotor activity: Normal Eye Contact: Maintains Eye Contact Mood Description: Euthymic/stable Affect description: congruent with mood, full range Speech Volume: Normal Speech pattern: normal rate, normal rhythm, normal tone, fluent, spontaneous Language & Vocabulary: consistent with education Thought Process: Linear, Goal Oriented Thought Content: No Suicidal ideation, No Homicidal ideation, No Overt delusions Perceptual Disturbances: No Auditory hallucinations, No Visual hallucinations Attention Span Ability: Capable of Focused Attention Memory Description: Grossly Intact Patient Reliability: Questionable Historian Fund of knowledge: Yes abstraction ability, Yes below average, Yes aware of current events Intelligence Estimate: Below Average Judgment: Limited Insight: Partial
[2018-03-10] MEDS ORDERED: hydrOXYzine pamoate 25 MG CAPSULE PO PRN (14:28)
[2018-03-10] MEDS: ARIPiprazole 5 MG TABLET PO SCH (21:08)
[2018-03-10] MEDS: traZODone 50 MG TABLET PO PRN (22:35)
[2018-03-11] MEDS: Nicotine 21 MG PATCH.TD24 TD SCH (08:31)
[2018-03-11] MEDS: Divalproex (12 HR) 500 MG TABLET PO SCH (08:32)
[2018-03-11] MEDS: FLUoxetine 20 MG CAPSULE PO SCH (08:32)
[2018-03-11] MEDS: Loratadine 10 MG TABLET PO SCH (08:32)
[2018-03-11] MEDS: Azelastine 0.1% Nasal Spray 30 ML BOTTLE NS SCH (08:39)
[2018-03-11 09:42] VITALS: BP 137/82
--- NOTE | 2018-03-11 10:50 | Discharge Summary ---
Date of Encounter: 03/11/18 Time of Encounter: 10:45 Diagnosis - Discharge Diagnosis (1) Drug induced akathisia Status: Chronic (2) Suicidal ideation Status: Resolved (3) Bipolar I disorder with mixed features Status: Acute (4) Developmental delay, moderate Status: Chronic Medications - Discharge Medications Prescriptions: ARIPiprazole [Abilify] 5 mg PO HS 30 Days #30 tablet Aripiprazole Lauroxil [Aristada] 662 mg IM Q4W 1 Days #1 suser.syr Divalproex (12 HR) [Depakote (12 HR)] 1,000 mg PO BID 30 Days #120 tablet. Lisinopril [Zestril] 2.5 mg PO QAM tab 01/02/17 [Rx] FLUoxetine HCl [Prozac] 60 mg PO DAILY 03/08/18 [History] Azelastine 0.1% Nasal [place] [Astelin] 1 spr NS DAILY 03/09/18 [History] Buspirone HCl [Buspar] 15 mg PO BID 03/09/18 [History] Cetirizine HCl [All Day Allergy] 10 mg PO DAILY 03/09/18 [History] Esomeprazole Magnesium [Nexium] 40 mg PO DAILY 03/09/18 [History] ARIPiprazole [Abilify] 5 mg PO HS 30 Days #30 tablet 03/11/18 [Rx] Aripiprazole Lauroxil [Aristada] 662 mg IM Q4W 1 Days #1 suser.syr 03/11/18 [Rx] Divalproex (12 HR) [Depakote (12 HR)] 1,000 mg PO BID 30 Days #120 tablet. 03/11/18 [Rx] Patient Taking Own Medication 0 each IM Q4W each 03/11/18 [Rx] Allergy/AdvReac Type Severity Reaction Status Date / Time No Known Allergies Allergy Verified 01/02/18 17:29 Results Procedures and tests throughout hospitalization: Completed Lab Orders Category Date Time Status Acetaminophen Stat Lab 03/07/18 21:14 Completed Basic Metabolic Panel Stat Lab 03/07/18 21:14 Completed Complete Blood Count [HEME] Stat Lab 03/07/18 21:14 Completed Drug Screen, Urine [UCHEM] Stat Lab 03/07/18 21:21 Completed Ethanol Stat Lab 03/07/18 21:14 Completed Salicylate Stat Lab 03/07/18 21:14 Completed Thyroid Stimulating Hormone Stat Lab 03/07/18 21:14 Completed Urinalysis reflex Microscopic [URIN] Stat Lab 03/07/18 21:21 Completed Valproate AM 0400 Lab 03/09/18 07:30 Completed Provider Date of admission: 03/08/18 08:14 Primary care physician: PCP NONE Discharging clinician: Rocky Canales Psychiatry Exam - Constitutional Vitals: Temp Pulse Resp BP Pulse Ox 97.5 F L 81 18 137/82 97 03/11/18 09:00 03/11/18 09:00 03/11/18 09:00 03/11/18 09:00 03/11/18 09:00 General appearance: age & developmentally appropriate, well-groomed, well- nourished - Musculoskeletal Gait: normal Station: shaky Strength & Tone: normal for patient - Psychiatric Patient Orientation: Yes Person, Yes Time, Yes Place Level of alertness: Alert Behavior: calm, restless Psychomotor activity: Repetitive movements Eye Contact: Maintains Eye Contact Mood Description: Euthymic/stable Affect description: congruent with mood, full range Speech Volume: Normal Speech pattern: normal rate, normal rhythm, normal tone, fluent, spontaneous Language & Vocabulary: consistent with education Thought Process: Linear, Goal Oriented Thought Content: No Suicidal ideation, No Homicidal ideation, No Overt delusions Perceptual Disturbances: No Auditory hallucinations, No Visual hallucinations Attention Span Ability: Capable of Focused Attention Memory Description: Grossly Intact Patient Reliability: Questionable Historian Fund of knowledge: Yes average Judgment: Limited Insight: Minimal Hospital Course Hospital course: Mr. Bass is a 27 year old male - Time Spent with Patient Total time spent providing and/or coordinating discharge services: Less than 30 minutes Assessment and Plan - Patient/Caregiver Discharge Instructions Activity: resume usual activities as tolerated Diet: regular diet - Follow up Plan Follow up with: [facility] [Outside] - 03/26/18 8:20 am (The above appointment is with Dr. Hampton for outpatient psychiatric assessment and medication management services. Please arrive 10 minutes early to all appointments to complete the check-in process. Please bring your insurance card (or HCAP award letter) and photo ID. If you are unable to keep any scheduled appointment, 24 hour business notice of cancellation is expected. The above appointment(s) reflects first availability. You may contact the office regularly to check for cancellations that may allow you to be seen sooner. ) [facility] [Outside] - 03/12/18 1:00 pm (The above appointment is with Jordana Hodge for outpatient mental health counseling services.) Functional capacity at discharge: independent ambulation Overall status at discharge: Stable Disposition: Home, Self-Care Quality - Multiple Antipsychotics Patient discharged on 2 or more antipsychotic medications: No Procedures - Procedures Procedures: Medication Management, Crisis Stabilization, Supportive Therapy, Group Therapy, Psychoeducational Therapy
--- NOTE | 2018-03-11 11:37 | Physician Discharge Referral ---
Home Health/Hosp Referral Info Transfer to: Home Health Attending Provider: Parker Provider in Charge Post Discharge: PCP - Diagnosis (1) Drug induced akathisia Priority: Secondary Status: Chronic (2) Suicidal ideation Priority: Secondary Status: Resolved (3) Bipolar I disorder with mixed features Priority: Primary Status: Acute (4) Developmental delay, moderate Priority: Secondary Status: Chronic - Respiratory Orders Smoking Cessation: Smoking cessation has been advised. For more information, call the [place] Tobacco Quit Line at 9-987-WAHY-NOW. - Diet/Nutrition Diet/Nutrition Orders: Regular - Activity Activity Orders: Up ad belinda - Services Needed Following services are medically necessary services: Nursing, Home Health Aide Home Care Orders: resume previous orders - Transfer Medications Prescriptions: ARIPiprazole [Abilify] 5 mg PO HS 30 Days #30 tablet Aripiprazole Lauroxil [Aristada] 662 mg IM Q4W 1 Days #1 suser.syr Divalproex (12 HR) [Depakote (12 HR)] 1,000 mg PO BID 30 Days #120 tablet. Home Medications: Lisinopril [Zestril] 2.5 mg PO QAM tab 01/02/17 [Rx] FLUoxetine HCl [Prozac] 60 mg PO DAILY 03/08/18 [History] Azelastine 0.1% Nasal [place] [Astelin] 1 spr NS DAILY 03/09/18 [History] Buspirone HCl [Buspar] 15 mg PO BID 03/09/18 [History] Cetirizine HCl [All Day Allergy] 10 mg PO DAILY 03/09/18 [History] Esomeprazole Magnesium [Nexium] 40 mg PO DAILY 03/09/18 [History] ARIPiprazole [Abilify] 5 mg PO HS 30 Days #30 tablet 03/11/18 [Rx] Aripiprazole Lauroxil [Aristada] 662 mg IM Q4W 1 Days #1 suser.syr 03/11/18 [Rx] Divalproex (12 HR) [Depakote (12 HR)] 1,000 mg PO BID 30 Days #120 tablet. 03/11/18 [Rx] Patient Taking Own Medication 0 each IM Q4W each 03/11/18 [Rx] Allergies/Adverse Reactions: Allergy/AdvReac Type Severity Reaction Status Date / Time No Known Allergies Allergy Verified 01/02/18 17:29 Certification: Further, I certify that my clinical findings support that this patient is homebound (i.e. absences from home require considerable and taxing effort and are for medical reasons or mosque services or infrequently or short duration when for other reasons) because: Homebound Reason: Altered mental status requiring supervision when leaving home Attestation: My signature below is to certify that this patient is under my care and that I, or nurse practitioner, or a physician's operations assistant working with me, has a [id number] encounter with this patient.
[2018-03-13] MEDS ORDERED: ARIPIPRAZOLE LAUROXIL IM SCH (09:00)
== END 2018-03-11 11:55 | disposition home or self-care (01) | DRG 753 ==
LOC: EMEROOARM 19:54 → 1ANU 03-08 08:14 → SUATTDRO 03-08 08:14 → 1ANU 03-08 08:39
PROVIDERS: ADMIT Psychiatry & Neurology Psychiatry; ATTEND Psychiatry & Neurology Forensic Psychiatry

== ENCOUNTER 2018-10-06 11:30 | Inpatient (IN) ==
--- NOTE | 2018-10-06 12:04 | Emergency Department Note ---
Disposition Dizziness HPI - General Chief Complaint: ED Dizziness Stated Complaint: dizzy Time Seen by Provider: 10/06/18 11:40 Source: patient Limitations: no limitations - Related Data Home Medications Medication Instructions Recorded Confirmed Azelastine 0.1% Nasal [place] 1 spr NS DAILY 03/09/18 07/05/18 [Astelin] ARIPiprazole [Abilify] 10 mg PO HS 04/30/18 07/05/18 Aripiprazole Lauroxil [Aristada] 662 mg IM QMONTH 04/30/18 07/05/18 Benztropine [Cogentin] 0.5 mg PO BID 04/30/18 07/05/18 Divalproex Sodium [Depakote] 1,000 mg PO HS 04/30/18 07/05/18 Divalproex Sodium [Depakote] 500 mg PO QAM 04/30/18 07/05/18 Lipitor 10 mg PO DAILY 04/30/18 07/05/18 Mirtazapine [Remeron] 15 mg PO HS 04/30/18 07/05/18 Propranolol [Inderal] 20 mg PO TID 04/30/18 07/05/18 Albuterol Sulfate [Ventolin Hfa] 18 gm IH Q6H PRN 07/05/18 07/05/18 Cetirizine HCl [Zyrtec] 10 mg PO DAILY 07/05/18 07/05/18 Cholecalciferol (Vitamin D3) 2,000 unit PO DAILY 07/05/18 07/05/18 [Vitamin D] EPINEPHrine [Epipen] 0.3 mg IM ONCE PRN 07/05/18 07/05/18 Esomeprazole Magnesium [Nexium] 40 mg PO DAILY 07/05/18 07/05/18 Fluticasone Propionate Nasal 50 mcg NS BID 07/05/18 07/05/18 [Flonase] Lisinopril [Zestril] 5 mg PO DAILY 07/05/18 07/05/18 Paroxetine HCl [Paxil] 20 mg PO DAILY 07/05/18 07/05/18 Previous Rx's Medication Instructions Recorded GuaiFENesin/Dextromethorphan 10 ml PO Q6HR #180 syrup 04/30/18 [Robitussin/DM] Allergies Allergy/AdvReac Type Severity Reaction Status Date / Time No Known Allergies Allergy Verified 09/24/18 20:01 Past Medical History - Past Medical History Medical history: Reports: GERD, hypertension Surgical history: Reports: other Psychiatric history: Reports: anxiety, bipolar, depression, schizophrenia, previous psychiatric hospitalization - Social History Smoking Status: Current every day smoker Smokeless Tobacco Status: No Alcohol use: Reports: none Drug use: Reports: none Physical Exam - General Limitations: no limitations General appearance: alert, in no apparent distress Course Vital Signs Temperature 97.6 F 10/06/18 11:34 Pulse Rate 132 10/06/18 11:34 Respiratory Rate 16 10/06/18 11:34 Blood Pressure 110/63 10/06/18 11:34 O2 Sat by Pulse Oximetry 98 10/06/18 11:34 Temperature 97.6 F 10/06/18 11:34 Pulse Rate 132 10/06/18 11:34 Respiratory Rate 16 10/06/18 11:34 Blood Pressure 110/63 10/06/18 11:34 O2 Sat by Pulse Oximetry 98 10/06/18 11:34 Oxygen Delivery Oxygen Delivery Room Air
[2018-10-06 12:47] LABS: Hematocrit 42.5 % (37.5-50.1)
--- NOTE | 2018-10-06 13:18 | Emergency Department Note ---
Disposition Clinical Impression: Medication adverse effect Qualifiers: Encounter type: initial encounter Qualified Code(s): T50.905A - Adverse effect of unspecified drugs, medicaments and biological substances, initial encounter Disposition: Admitted As Inpatient Condition: Good Time of Disposition: 21:44 General Adult HPI - General Chief complaint: ED Dizziness Stated complaint: dizzy Time Seen by Provider: 10/06/18 11:40 Source: patient Limitations: no limitations - History of Present Illness HPI Narrative: Obed Bass is a 27 YOM with a history of multiple psychiatric disorders, HTN, HLD, who presents to the ED with complaint of dizziness, inability to sleep, and confusion. Patient states that he hasn't been able to sleep in at least 4 days due to vivid dreams. He also states that his medications were changed recently, however he cannot remember which medication or what it's for. He describes his dizziness as feeling unsteady and lightheaded, he denies the room spinning. He admits to ringing in the ears, but states he has had this since he was a child. He also states that he feels confused and has a hard time giving an accurate history. He admits to nausea without vomiting, denies fever, chills, syncope, fall or recent trauma, focal weakness, numbness or tingling. Pt Subjective Complaint: dizziness, inability to sleep Pain Scale: 0 - Related Data Home Medications Medication Instructions Recorded Confirmed Cetirizine HCl [Zyrtec] 10 mg PO HS 07/05/18 10/08/18 Esomeprazole Magnesium [Nexium] 40 mg PO QAM 07/05/18 10/08/18 Lisinopril [Zestril] 5 mg PO QAM 07/05/18 10/08/18 Trazodone HCl 100 mg PO HS PRN 10/06/18 10/08/18 risperiDONE [Risperidone] 4 mg PO BID 10/06/18 10/08/18 Atorvastatin [Lipitor] 10 mg PO HS 10/08/18 10/08/18 Divalproex Sodium 1,000 mg PO HS 10/08/18 10/08/18 Divalproex Sodium 500 mg PO QAM 10/08/18 10/08/18 Allergies Allergy/AdvReac Type Severity Reaction Status Date / Time No Known Allergies Allergy Verified 10/08/18 13:34 All systems ED: reviewed and negative except as stated. Past Medical History - Past Medical History Medical history: Reports: GERD, hypertension Surgical history: Reports: other Psychiatric history: Reports: anxiety, bipolar, depression, schizophrenia, previous psychiatric hospitalization - Social History Smoking Status: Current every day smoker Smokeless Tobacco Status: No Alcohol use: Reports: none Drug use: Reports: none Physical Exam - General Limitations: no limitations General appearance: alert (oriented to person, place, time, year), in no apparent distress (falls in and out of sleep during conversation ) - Head Head exam: atraumatic - Eye Eye exam: Present: normal appearance, EOMI - ENT ENT exam: mucous membranes moist - Neck Neck exam: Present: normal inspection, full ROM, trachea midline. Absent: tenderness - Respiratory Respiratory exam: Present: normal lung sounds bilaterally. Absent: respiratory distress, wheezes, accessory muscle use - Cardiovascular Cardiovascular exam: Present: regular rate, normal rhythm, +S1, +S2 - Abdominal Exam Abdominal exam: Present: soft, Non-Tender, normal bowel sounds. Absent: distention, guarding, rebound, rigidity - Extremities Exam Extremities exam: Present: normal inspection. Absent: pedal edema - Expanded Neurological Exam Speech: Present: fluid speech Cranial nerves: EOM function (II, III, IV, ): Normal, facial sensation (V): Normal, facial palsy (VII): Normal, gag reflex (IX): Normal, spinal accessory function (XI): Normal, tongue deviation (XII): Normal Cerebellar function: finger to nose: Normal, heel to ibrahim: Normal Motor strength - LUE: 5/5 Motor strength - RUE: 5/5 Motor strength - LLE: 5/5 Motor strength - RLE: 5/5 Upper motor neuron exam: pronator drift: Absent bilaterally Sensory exam upper extremity: light touch: Normal Sensory exam lower extremity: light touch: Normal - Psychiatric Psychiatric exam: Present: normal affect, normal mood. Absent: manic - Skin Skin exam: Present: warm, dry, intact. Absent: rash, cyanosis, diaphoresis Course Vital Signs Temperature 97.6 F 10/06/18 11:34 Pulse Rate 132 10/06/18 11:34 Respiratory Rate 16 10/06/18 11:34 Blood Pressure 110/63 10/06/18 11:34 O2 Sat by Pulse Oximetry 98 10/06/18 11:34 Temperature 99 F 10/09/18 19:58 Pulse Rate 122 10/09/18 19:58 Respiratory Rate 20 10/09/18 19:58 Blood Pressure 111/78 10/09/18 19:58 O2 Sat by Pulse Oximetry 99 10/09/18 19:58 Oxygen Delivery Oxygen Delivery Room Air Medical Decision Making - MDM Narrative Medical decision making narrative: Dizziness possibly secondary to medication changes/side effects. Does not appear to be vertigo. No focal deficits, normal neurological exam. Possible bipolar manic episode with history of not sleeping for the past 4 days, however appears to be less likely given poor energy and fatigue. Patient reassessed, unchanged from previous. Remains tachycardic with HR 102-119 while lying comfortably in bed sleeping. Denies any alcohol or illicit drug or other substances. Afebrile. Hypoactive patellar and Achilles tendon reflexes 1/4, no clonus noted. Continues to complain of feeling lightheaded and dizzy. 1547 Labs and vitals reviewed, no anemia, no signs of infectious cause, no known exposures or substance use. Repeat EKG similar to initial EKG. No QT prolongation or other explanations for tachycardia and dizziness. Patient remains alert and oriented. Still suspect medication changes/side effects as cause of patient's symptoms. Discussed with patient who agrees to call and schedule follow up with his psychiatrist within the next 1-2 days. [id number] Patient's caregiver Malia arrived in the ED and was able to provide some additional history for the patient. She states that when patient was at [facility], multiple medications were abruptly discontinued and include Paxil, Aristada, Abilify, Propranolol, Cogentin, and Risperdal. Patient was restarted on Trazadone for sleep, which she states has not worked for him in the past and is the reason that he hasn't slept in the past 4 days. She states that the patient has been doing great prior to his stay at [facility] and since discharge has been spirally downward. His Pyschiatrist is unable to see him until 11/03/18 and she does not feel that patient is safe to discharge home. Spoke with charge nurse on 1A for evaluation of patient and assistance with suspected medication changes and likely adverse reactions. I was told that I would need to discuss this with the Psychiatrist. Pending call back at this time. [address] Jacobson and informed him of my concern for patient likely having adverse medication reaction due to discontinuation of medications recently. He agreed that patient needs to be be seen today or tomorrow and states that he will contact the nursing staff to help facilitate getting the patient seen sooner than the scheduled 11/03 appointment. 184 spoke with nursing staff on 1A who agreed to come evaluate the patient. Consult was ordered. 1900 Accepted for admission to 2143 - Medical Records Medical records reviewed: Yes I reviewed the patient's medical records. - Lab Data Lab results reviewed: Yes I reviewed the patient's lab results. Result diagrams: 10/08/18 09:04 10/08/18 09:04 Lab Results 10/06/18 10/06/18 10/06/18 Range/Units 12:25 12:25 12:30 Hgb 14.0 (12.9-16.9) g/dL Hct 42.5 (37.5-50.1) % Sodium (136-145) mEq/L Potassium (3.5-5.1) mEq/L Chloride (98-107) mEq/L Carbon Dioxide (23-29) mEq/L BUN (6-20) mg/dL Creatinine (0.70-1.30) mg/dL Est GFR ( Amer) (> 60) Est GFR (Non-Af Amer) (> 60) BUN/Creatinine Ratio (6-26) Glucose (70-105) mg/dL Calculated Osmolality (280-300) Calcium (8.6-10.3) mg/dL TSH (0.340-5.600) mcIU/mL Urine Color Yellow (Yellow) Urine Clarity Clear (Clear) Urine pH 8.0 (5.0-8.0) pH Units Ur Specific [place] 1.026 H (1.010-1.025) Urine Protein Trace (Neg-Trace) mg/dL Urine Glucose (UA) Normal (Normal) mg/dL Urine Ketones Trace H (Negative) mg/dL Urine Blood Negative (Negative) Urine Nitrite Negative (Negative) Urine Bilirubin Negative (Negative) Urine Urobilinogen Normal (Normal) mg/dL Ur Leukocyte Esterase Negative (Negative) Salicylates (15.0-30.0) mg/dL Urine Opiates Screen Negative (Lkanfd=869) ng/mL Acetaminophen (10-20) mcg/mL Ur Barbiturates Screen Negative (Latjpf=621) ng/mL Valproic Acid (50-100) mcg/mL Ur Phencyclidine Scrn Negative (Cutoff=25) ng/mL Ur Amphetamines Screen Negative (Igyytn=2224) ng/mL U Benzodiazepines Scrn Negative (Cnrukz=949) ng/mL Urine Cocaine Screen Negative (Cutoff= 300) ng/mL U Marijuana (THC) Screen Negative (Cutoff = 50) ng/mL Ur Drug Screen Interp See Below Ethyl Alcohol (Less than 10) mg/dL 10/06/18 Range/Units 12:30 Hgb (12.9-16.9) g/dL Hct (37.5-50.1) % Sodium 136 (136-145) mEq/L Potassium 5.0 (3.5-5.1) mEq/L Chloride 104 (98-107) mEq/L Carbon Dioxide 25 (23-29) mEq/L BUN 13 (6-20) mg/dL Creatinine 0.81 (0.70-1.30) mg/dL Est GFR ( Amer) > 60 (> 60) Est GFR (Non-Af Amer) > 60 (> 60) BUN/Creatinine Ratio 16 (6-26) Glucose 85 (70-105) mg/dL Calculated Osmolality 281 (280-300) Calcium 8.9 (8.6-10.3) mg/dL TSH 3.440 (0.340-5.600) mcIU/mL Urine Color (Yellow) Urine Clarity (Clear) Urine pH (5.0-8.0) pH Units Ur Specific [place] (1.010-1.025) Urine Protein (Neg-Trace) mg/dL Urine Glucose (UA) (Normal) mg/dL Urine Ketones (Negative) mg/dL Urine Blood (Negative) Urine Nitrite (Negative) Urine Bilirubin (Negative) Urine Urobilinogen (Normal) mg/dL Ur Leukocyte Esterase (Negative) Salicylates < 2.5 L (15.0-30.0) mg/dL Urine Opiates Screen (Zccopc=763) ng/mL Acetaminophen < 10 L (10-20) mcg/mL Ur Barbiturates Screen (Fbqllm=028) ng/mL Valproic Acid 79 (50-100) mcg/mL Ur Phencyclidine Scrn (Cutoff=25) ng/mL Ur Amphetamines Screen (Olzqxx=0468) ng/mL U Benzodiazepines Scrn (Klujtv=386) ng/mL Urine Cocaine Screen (Cutoff= 300) ng/mL U Marijuana (THC) Screen (Cutoff = 50) ng/mL Ur Drug Screen Interp Ethyl Alcohol < 10 (Less than 10) mg/dL - EKG Data EKG #1 EKG results narrative: Sinus Tachycardia HR 118 RR 508 RI 111 QRS duration 92 QT 305 QTc 428. Relatively unchanged from initial EKG. No delta waves. EKG #2 EKG attestation: Yes I reviewed and interpreted this EKG. EKG results narrative: Sinus Tachycardia HR 118 RR 508 RI 111 QRS duration 92 QT 305 QTc 428. Relatively unchanged from initial EKG. No delta waves.
[2018-10-06 13:32] LABS: BUN/Creatinine Ratio 16 (6-26); Blood Urea Nitrogen 13 mg/dL (6-20); Calcium 8.9 mg/dL (8.6-10.3); Carbon Dioxide 25 mEq/L (23-29); Chloride 104 mEq/L (98-107); Glucose 85 mg/dL (70-105); Osmolality,Calculated 281 (280-300); Sodium 136 mEq/L (136-145); eGFR For African Americans > 60 (> 60); eGFR For Non-African Americans > 60 (> 60)
[2018-10-06] MEDS ORDERED: 0.9 % Sodium Chloride 1,000 ML IVC ONE (14:27)
--- NOTE | 2018-10-06 14:27 | Emergency Department Note ---
Disposition Referrals: NONE,PCP [Primary Care Provider] - Forms: ED Satisfaction Letter General Adult HPI - General Chief complaint: ED Dizziness Stated complaint: dizzy Time Seen by Provider: 10/06/18 11:40 Source: patient Limitations: no limitations - History of Present Illness Pain Scale: 0 - Related Data Home Medications Medication Instructions Recorded Confirmed Azelastine 0.1% Nasal [place] 1 spr NS DAILY 03/09/18 07/05/18 [Astelin] ARIPiprazole [Abilify] 10 mg PO HS 04/30/18 07/05/18 Aripiprazole Lauroxil [Aristada] 662 mg IM QMONTH 04/30/18 07/05/18 Benztropine [Cogentin] 0.5 mg PO BID 04/30/18 07/05/18 Divalproex Sodium [Depakote] 1,000 mg PO HS 04/30/18 07/05/18 Divalproex Sodium [Depakote] 500 mg PO QAM 04/30/18 07/05/18 Lipitor 10 mg PO DAILY 04/30/18 07/05/18 Mirtazapine [Remeron] 15 mg PO HS 04/30/18 07/05/18 Propranolol [Inderal] 20 mg PO TID 04/30/18 07/05/18 Albuterol Sulfate [Ventolin Hfa] 18 gm IH Q6H PRN 07/05/18 07/05/18 Cetirizine HCl [Zyrtec] 10 mg PO DAILY 07/05/18 07/05/18 Cholecalciferol (Vitamin D3) 2,000 unit PO DAILY 07/05/18 07/05/18 [Vitamin D] EPINEPHrine [Epipen] 0.3 mg IM ONCE PRN 07/05/18 07/05/18 Esomeprazole Magnesium [Nexium] 40 mg PO DAILY 07/05/18 07/05/18 Fluticasone Propionate Nasal 50 mcg NS BID 07/05/18 07/05/18 [Flonase] Lisinopril [Zestril] 5 mg PO DAILY 07/05/18 07/05/18 Paroxetine HCl [Paxil] 20 mg PO DAILY 07/05/18 07/05/18 Previous Rx's Medication Instructions Recorded GuaiFENesin/Dextromethorphan 10 ml PO Q6HR #180 syrup 04/30/18 [Robitussin/DM] Allergies Allergy/AdvReac Type Severity Reaction Status Date / Time No Known Allergies Allergy Verified 09/24/18 20:01 Past Medical History - Past Medical History Medical history: Reports: GERD, hypertension Surgical history: Reports: other Psychiatric history: Reports: anxiety, bipolar, depression, schizophrenia, previ ous psychiatric hospitalization - Social History Smoking Status: Current every day smoker Smokeless Tobacco Status: No Alcohol use: Reports: none Drug use: Reports: none Physical Exam - General Limitations: no limitations General appearance: alert (oriented to person, place, time, year), in no apparent distress (falls in and out of sleep during conversation ) Course Vital Signs Temperature 97.6 F 10/06/18 11:34 Pulse Rate 132 10/06/18 11:34 Respiratory Rate 16 10/06/18 11:34 Blood Pressure 110/63 10/06/18 11:34 O2 Sat by Pulse Oximetry 98 10/06/18 11:34 Temperature 97.6 F 10/06/18 11:34 Pulse Rate 101 10/06/18 14:14 Respiratory Rate 20 10/06/18 14:14 Blood Pressure 137/89 10/06/18 14:14 O2 Sat by Pulse Oximetry 100 10/06/18 14:14 Oxygen Delivery Oxygen Delivery Room Air Medical Decision Making - Lab Data Result diagrams: 10/06/18 12:30 10/06/18 12:30 Lab Results 10/06/18 10/06/18 Range/Units 12:30 12:30 Hgb 14.0 (12.9-16.9) g/dL Hct 42.5 (37.5-50.1) % Sodium 136 (136-145) mEq/L Potassium 5.0 (3.5-5.1) mEq/L Chloride 104 (98-107) mEq/L Carbon Dioxide 25 (23-29) mEq/L BUN 13 (6-20) mg/dL Creatinine 0.81 (0.70-1.30) mg/dL Est GFR ( Amer) > 60 (> 60) Est GFR (Non-Af Amer) > 60 (> 60) BUN/Creatinine Ratio 16 (6-26) Glucose 85 (70-105) mg/dL Calculated Osmolality 281 (280-300) Calcium 8.9 (8.6-10.3) mg/dL Attestation Statement - Attestation Attestation: I examined this patient and my medical decision-making was reviewed with the Resident Physician. I agree with the documented findings, disposition and treatment plan as described except to the extent set forth below. Patient is sleepy but arousable and answers questions. Resting tachycardia to 115 bpm at a time of my evaluation at 1415. He appears nontoxic, EKG is unremarkable with normal intervals and QRS duration. I am somewhat concerned about his level tachycardia. We will monitor, add some diagnostics and give some fluids.
[2018-10-06 14:43] LABS: Bilirubin,Urine Negative (Negative); Blood,Urine Negative (Negative); Clarity,Urine Clear (Clear); Color,Urine Yellow (Yellow); Glucose,Urine (UA) Normal (Normal); Ketones,Urine Trace mg/dL (Negative); Leukocyte Esterase,Urine Negative (Negative); Nitrite,Urine Negative (Negative); Protein,Urine Trace mg/dL (Neg-Trace); Specific Gravity,Urine 1.026 (1.010-1.025); Urobilinogen,Urine Normal (Normal)
[2018-10-06 14:50] LABS: Valproate 79 mcg/mL (50-100)
[2018-10-06 19:31] LABS: Acetaminophen < 10 mcg/mL (10-20); Ethanol < 10 mg/dL (Less than 10); Salicylate < 2.5 mg/dL (15.0-30.0)
[2018-10-06 19:34] LABS: Amphetamine Screen,Urine Negative ng/mL (Cutoff=1000); Barbiturate Screen,Urine Negative ng/mL (Cutoff=200); Benzodiazepines Screen,Urine Negative ng/mL (Cutoff=200); Cannabinoid Screen,Urine Negative ng/mL (Cutoff = 50); Cocaine Screen,Urine Negative ng/mL (Cutoff= 300); Opiate Screen,Urine Negative ng/mL (Cutoff=300); Phencyclidine Screen,Urine Negative ng/mL (Cutoff=25)
[2018-10-06] MEDS ORDERED: MOM Conc 10 ML UD.LIQ PO PRN (22:33)
[2018-10-06] MEDS ORDERED: *HR* LORazepam 2 MG/ML VIAL IM PRN (22:33)
[2018-10-06] MEDS ORDERED: Haloperidol Lactate 5 MG/ML VIAL IM PRN (22:33)
[2018-10-06] MEDS ORDERED: hydrOXYzine pamoate 25 MG CAPSULE PO PRN (22:33)
[2018-10-06] MEDS ORDERED: *HR* LORazepam 1 MG TABLET PO PRN (22:33)
[2018-10-06] MEDS ORDERED: Mag Hydrox/Al Hydrox/Simeth 30 ML UDC PO PRN (22:33)
[2018-10-06] MEDS ORDERED: Acetaminophen 325 MG TABLET PO PRN (22:33)
[2018-10-06] MEDS: Divalproex (12 HR) 250 MG TABLET PO SCH (23:32)
[2018-10-06] MEDS: traZODone 50 MG TABLET PO PRN (23:32)
[2018-10-06] MEDS: risperiDONE 1 MG TABLET PO SCH (23:57)
[2018-10-07] MEDS: Divalproex (12 HR) 250 MG TABLET PO SCH ×2 (08:52→21:14)
[2018-10-07] MEDS: Loratadine 10 MG TABLET PO SCH (08:52)
[2018-10-07] MEDS: risperiDONE 1 MG TABLET PO SCH ×2 (08:53→21:14)
--- NOTE | 2018-10-07 09:43 | Psychiatry History & Physical ---
Date of Encounter: 10/07/18 Time of Encounter: 09:15 History of Present Illness Patient Stated Chief Complaint: I can't sleep Medicare Admission Attestation: For traditional Medicare patients the provided hospital inpatient services are reasonable and necessary and in the case of services not specified as inpatient-only under 42 CFR 419.22 (n), that they are appropriately provided as inpatient services in accordance 42 CFR 412.3. For Critical Access Hospital the patient may reasonably be expected to be discharged or transferred to a hospital within 96 hours after admission to the Critical Access Hospital. Admitted From: Emergency Dept Plans for Post Hospital Care: Home History of Present Illness: Mr. Bass is a 27 year old male with a history of multiple psychiatric d isorders, HTN, HLD, who presents to the ED with complaint of dizziness, inability to sleep, and confusion. Patient states that he hasn't been able to sleep in at least 4 days due to vivid dreams. He also states that his medications were changed recently, however he cannot remember which medication or what it's for. He describes his dizziness as feeling unsteady and lightheaded, he denies the room spinning. He admits to ringing in the ears, but states he has had this since he was a child. He also states that he feels confused and has a hard time giving an accurate history. He admits to nausea w ithout vomiting, denies fever, chills, syncope, fall or recent trauma, focal weakness, numbness or tingling. [id number] Patient's caregiver Malia arrived in the ED and was able to provide some additional history for the patient. She states that when patient was at [facility], multiple medications were abruptly discontinued and include Paxil, Aristada, Abilify, Propranolol, Cogentin, and Risperdal. Patient was restarted on Trazadone for sleep, which she states has not worked for him in the past and is the reason that he hasn't slept in the past 4 days. She states that the patient has been doing great prior to his stay at [facility] and since discharge has been spirally downward. His Pyschiatrist is unable to see him until 11/03/18 and she does not feel that patient is safe to discharge home. This morning the patient reports that he has been feeling sad, tearful, not wanting to go on living and having thoughts of trying to grab a knife from the kitchen to cut his neck. He reports dizziness and not feeling "right in the head" and he was taken off his Risperdal injection. He said it has been about 5 weeks since his last injection. He said the changes [facility] made made him feel worse. He reports auditory hallucinations command at times telling him to harm himself. He reports a history of manic symptoms including irritability, decreased need for sleep, risk taking behaviors, excessive talking. Past Med Surg Social Fam HX - Past Medical History Medical history: GERD, hypertension - Past Psychiatric History Psychiatric history: Reports: bipolar, schizophrenia, previous psychiatric hospitalization. Denies: prior suicide attempt Past psychiatric history details: He is linked with [facility]. He denies prior suicide attempts. He has a long history of psychosis and has had numerous hospitalizations in the past including several at [address] He was on Aricept on a 662 and Depakote thousand twice a day as well as Prozac 60 and Remeron during his past admission in 2018. Most recently he has been on Depakote 500/thousand and lisinopril 5 t razodone 100 at bedtime and Risperdal 4 twice a day. He denies prior suicide attempts. Family psychiatric history: Yes Family Psychiatric History Details: His mother has psychosis. Family History of Suicide: None - Past Surgical History Surgical History: other - Social History Smoking Status: Current every day smoker Packs per day: 1 Smokeless Tobacco Status: No Alcohol use: none Drug use: none Occupational status: unemployed Current living situation: Assisted Activity Level: Independent ambulation Recent Out of Country Travel Within the Last 8 Weeks: No Exposure or Possible Exposure to Illness During Travel: No Additional social history: Patient says he lives in a shared living environment. He is unemployed. He is not and has no children. - Family History Mother Hx Family Cardiac Disorders: Yes (blood clots) Father Hx Family HEENT Disorders: Yes (glaucoma) Medications & Allergies Divalproex Sodium [Depakote] 1,000 mg PO HS 04/30/18 [History] Divalproex Sodium [Depakote] 500 mg PO QAM 04/30/18 [History] Cetirizine HCl [Zyrtec] 10 mg PO DAILY 07/05/18 [History] Esomeprazole Magnesium [Nexium] 40 mg PO DAILY 07/05/18 [History] Lisinopril [Zestril] 5 mg PO DAILY 07/05/18 [History] Trazodone HCl 100 mg PO HS 10/06/18 [History] risperiDONE [Risperidone] 4 mg PO BID 10/06/18 [History] Allergy/AdvReac Type Severity Reaction Status Date / Time No Known Allergies Allergy Verified 09/24/18 20:01 Review of Systems Constitutional: Denies: fever Eyes: Denies: eye pain Ears, Nose, Throat: Denies: ear pain Cardiovascular: Denies: chest pain Respiratory: Denies: cough Gastrointestinal: Denies: abdominal pain Genitourinary male: Denies: urgency Musculoskeletal: Denies: back pain Integumentary: Denies: rash Neurological: Denies: headache Psychiatric: Reports: depression, suicidal ideation, auditory hallucinations, hopelessness, mood swings Endocrine: Reports: fatigue Hematologic/Lymphatic: Denies: easy bleeding Allergic/Immunologic: Denies: facial swelling Exam - HEENT Head exam IM: Present: atraumatic Eye exam IM: Present: normal appearance. Absent: conjunctival injection ENT exam IM: Present: mucous membranes moist - Neurological Neurological exam: Present: CN II-XII intact (Grossly) - Respiratory Respiratory exam IM: Absent: respiratory distress - GI/Abdominal GI/Abdominal exam IM: Present: no peritoneal signs - Extremities Extremities exam IM: Present: full ROM - Skin Skin exam IM: Absent: abrasion - Constitutional Vitals: Temp Pulse Resp BP Pulse Ox 97.8 F 115 18 125/73 96 10/06/18 22:20 10/06/18 22:20 10/06/18 22:20 10/06/18 22:20 10/06/18 22:20 General appearance: age & developmentally appropriate, obese - Musculoskeletal Gait: slow Station: stooped - Psychiatric Patient Orientation: Yes Person, Yes Time, Yes Place Level of alertness: Alert Behavior: tearful Psychomotor activity: Slowed Eye Contact: Minimal Contact Mood Description: Depressed Patient description of mood: "Terrible" Affect description: blunted Speech Volume: Soft/Quiet Speech pattern: normal rate Language & Vocabulary: limited Thought Process: Slowed Thinking Thought Content: Yes Suicidal ideation, No Homicidal ideation Perceptual Disturbances: Yes Auditory hallucinations, No Visual hallucinations Attention Span Ability: Unable to Focus, Unable to Sustain Attention Memory Description: Immediate Impaired, Recent Impaired, Remote Impaired Patient Reliability: Questionable Historian Fund of knowledge: Yes below average Intelligence Estimate: Below Average Judgment: Poor Insight: Minimal Results - Drug Levels and Toxicology Drug Levels and Toxicology: Drug Levels and Toxicity 10/06/18 10/06/18 12:25 12:30 Urine Opiates Screen Negative Acetaminophen < 10 L Ur Barbiturates Screen Negative Ur Phencyclidine Scrn Negative Ur Amphetamines Screen Negative U Benzodiazepines Scrn Negative Urine Cocaine Screen Negative U Marijuana (THC) Screen Negative Ethyl Alcohol < 10 - Labs Labs: Laboratory Last Values Hgb 14.0 g/dL (12.9-16.9) 10/06/18 12:30 Hct 42.5 % (37.5-50.1) 10/06/18 12:30 Sodium 136 mEq/L (136-145) 10/06/18 12:30 Potassium 5.0 mEq/L (3.5-5.1) 10/06/18 12:30 Chloride 104 mEq/L (98-107) 10/06/18 12:30 Carbon Dioxide 25 mEq/L (23-29) 10/06/18 12:30 BUN 13 mg/dL (6-20) 10/06/18 12:30 0.81 mg/dL (0.70-1.30) 10/06/18 12:30 Est GFR ( Amer) > 60 (> 60) 10/06/18 12:30 Est GFR (Non-Af Amer) > 60 (> 60) 10/06/18 12:30 16 (6-26) 10/06/18 12:30 Glucose 85 mg/dL (70-105) 10/06/18 12:30 281 (280-300) 10/06/18 12:30 Calcium 8.9 mg/dL (8.6-10.3) 10/06/18 12:30 TSH 3.440 mcIU/mL (0.340-5.600) 10/06/18 12:30 Yellow (Yellow) 10/06/18 12:25 Clear (Clear) 10/06/18 12:25 8.0 pH Units (5.0-8.0) 10/06/18 12:25 Ur Specific [place] 1.026 (1.010-1.025) H 10/06/18 12:25 Trace mg/dL (Neg-Trace) 10/06/18 12:25 Normal mg/dL (Normal) 10/06/18 12:25 Trace mg/dL (Negative) H 10/06/18 12:25 Negative (Negative) 10/06/18 12:25 Negative (Negative) 10/06/18 12:25 Negative (Negative) 10/06/18 12:25 Normal mg/dL (Normal) 10/06/18 12:25 Ur Leukocyte Esterase Negative (Negative) 10/06/18 12:25 Salicylates < 2.5 mg/dL (15.0-30.0) L 10/06/18 12:30 Negative ng/mL (Qxfozs=664) 10/06/18 12:25 Acetaminophen < 10 mcg/mL (10-20) L 10/06/18 12:30 Ur Barbiturates Screen Negative ng/mL (Cqegwb=514) 10/06/18 12:25 Valproic Acid 79 mcg/mL (50-100) 10/06/18 12:30 Ur Phencyclidine Scrn Negative ng/mL (Cutoff=25) 10/06/18 12:25 Ur Amphetamines Screen Negative ng/mL (Pppiqd=5321) 10/06/18 12:25 U Benzodiazepines Scrn Negative ng/mL (Jqkcll=787) 10/06/18 12:25 Negative ng/mL (Cutoff= 300) 10/06/18 12:25 U Marijuana (THC) Screen Negative ng/mL (Cutoff = 50) 10/06/18 12:25 Ur Drug Screen Interp See Below 10/06/18 12:25 Ethyl Alcohol < 10 mg/dL (Less than 10) 10/06/18 12:30 Assessment and Plan (1) Schizoaffective disorder, bipolar type Current visit: Yes Status: Acute Plan: Admit inpatient for safety and stabilization, Close observation, Suicide Precautions per unit protocol, Encourage participation in unit milieu, Group Therapy, Monitor sleep, Monitor appetite Additional Plan: We will restart her status 662 mg IM every 4 weeks. Will check Depakote level to see if it is therapeutic. We will continue Risperdal for now. We will continue trazodone at at bedtime. Encourage group attendance. Reviewed Interval hx Review any current labs Pt had an opportunity to ask questions and discuss current treatment plan. Supportive therapy was provided Pt encouraged to consider group or individual therapy Pt was in agreement with treatment plan. Pt was educated on the risks benefits and side effects of current medications and alternatives as well as the risks and benefits of no medication. AIMS = 0 lipids and hgba1c Risks, benefits, side effects, alternatives discussed w/pt: Yes Patient agreeable to treatment: Yes Plans for Post Hospital Care: Home Estimated Length of Stay (Days): 5
[2018-10-07] MEDS: Nicotine 2 MG GUM BC PRN ×2 (12:55→17:44)
--- NOTE | 2018-10-07 21:21 | Electrocardiograph Report ---
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
--- NOTE | 2018-10-07 21:30 | Electrocardiograph Report ---
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
--- NOTE | 2018-10-08 08:36 | Psychiatry Progress Note ---
Date of Encounter: 10/08/18 Time of Encounter: 08:34 Subjective Interval history: Patient reports he is feeling a little bit better. He said he did not sleep well last night though. He says that the suicidal thoughts are improving slightly. He denies auditory or visual hallucinations. He should get his Abilify injection today. His Depakote level has not come back yet. His caregiver visited yesterday and said that she believed his lisinopril dose at home was 10 mg a day and his blood pressure here has been running slightly high so we will increase that. Review of Systems Psychiatric: Reports: depression, suicidal ideation, hopelessness, mood swings Results - Vital Signs Vital Signs: Temp Pulse Resp BP Pulse Ox 98.6 F 86 18 118/73 95 10/07/18 19:35 10/07/18 19:35 10/07/18 19:35 10/07/18 19:35 10/07/18 09:00 Assessment and Plan (1) Schizoaffective disorder, bipolar type Current visit: Yes Status: Acute Plan: Continue hospitalization, Close observation, Suicide Precautions per unit protocol, Encourage participation in unit milieu, Group Therapy, Monitor sleep, Monitor appetite Additional Plan: Patient should get aerosol injection today. Will increase lisinopril to 10 mg every morning for per the control of blood pressure. Encourage group attendance. Risks, benefits, side effects, alternatives discussed w/pt: Yes Patient agreeable to treatment: Yes Consult Discharge Plan - Plan Referrals: NONE,PCP [Primary Care Provider] - Psychiatry Exam - Constitutional Vitals: Temp Pulse Resp BP Pulse Ox 98.6 F 86 18 118/73 95 10/07/18 19:35 10/07/18 19:35 10/07/18 19:35 10/07/18 19:35 10/07/18 09:00 General appearance: age & developmentally appropriate, obese - Musculoskeletal Gait: slow Station: relaxed Strength & Tone: normal for patient - Psychiatric Patient Orientation: Yes Person, Yes Time, Yes Place Level of alertness: Alert Behavior: distractible Psychomotor activity: Slowed Eye Contact: Maintains Eye Contact Mood Description: Depressed Patient description of mood: Down Affect description: blunted Speech Volume: Soft/Quiet Speech pattern: slowed Language & Vocabulary: limited Thought Process: Intact Thought Content: Yes Suicidal ideation, No Homicidal ideation Perceptual Disturbances: No Auditory hallucinations, No Visual hallucinations Attention Span Ability: Capable of Focused Attention Memory Description: Grossly Intact Patient Reliability: Reliable Historian Fund of knowledge: Yes below average Intelligence Estimate: Below Average Judgment: Limited Insight: Minimal
[2018-10-08 09:17] LABS: Basophils # 0.1 K/mcL (0.0-0.2); Basophils % 0.9 %; Eosinophils # 0.2 K/mcL (0.0-0.6); Eosinophils % 1.5 %; Hemoglobin 14.2 g/dL (12.9-16.9); Immature Granulocytes % 2.4 % (0-4); Lymphocytes # 3.5 K/mcL (0.6-4.6); Lymphocytes % 25.6 %; Mean Corpuscular Volume 90.9 fL (83.0-100.0); Mean Platelet Volume 10.1 fL (9.4-12.4); Monocytes % 7.3 %; Neutrophils # 8.5 K/mcL (1.6-8.9); Platelet Count 302 K/mcL (140-400); Red Blood Count 4.73 M/mcL (4.19-5.50); Red Cell Distribution Width 12.5 % (11.5-14.5); Segmented Neutrophils % 62.3 %; White Blood Count 13.7 K/mcL (4.3-11.1)
[2018-10-08] MEDS: Loratadine 10 MG TABLET PO SCH (09:40)
[2018-10-08] MEDS: Divalproex (12 HR) 250 MG TABLET PO SCH ×2 (09:40→20:42)
[2018-10-08] MEDS: risperiDONE 1 MG TABLET PO SCH ×2 (09:40→20:42)
[2018-10-08] MEDS: Nicotine 2 MG GUM BC PRN ×3 (09:41→21:31)
[2018-10-08 09:42] LABS: Alanine Aminotransferase 9 Units/L (7-52); Albumin 4.3 g/dL (3.5-5.7); Albumin/Globulin Ratio 1.2 (1.1-2.2); Alkaline Phosphatase 78 Units/L (34-104); Aspartate Amino Transferase 13 Units/L (13-39); BUN/Creatinine Ratio 16 (6-26); Bilirubin,Total 0.4 mg/dL (0.3-1.0); Blood Urea Nitrogen 14 mg/dL (6-20); Calcium 9.4 mg/dL (8.6-10.3); Carbon Dioxide 22 mEq/L (23-29); Chloride 104 mEq/L (98-107); Chol/HDL Ratio 4.1 (0-4.9); Cholesterol 127 mg/dL (< 200); Globulin 3.6 g/dL (2.4-3.5); Glucose 121 mg/dL (70-105); HDL Cholesterol 31 mg/dL (40-59); LDL Cholesterol,Calculated 56 mg/dL (0-99); Osmolality,Calculated 284 (280-300); Potassium 3.8 mEq/L (3.5-5.1); Sodium 136 mEq/L (136-145); Total Protein 7.9 g/dL (6.4-8.9); Triglycerides 201 mg/dL (< 150); Valproate 72 mcg/mL (50-100); eGFR For African Americans > 60 (> 60); eGFR For Non-African Americans > 60 (> 60)
[2018-10-08 10:51] LABS: Estimated Average Glucose 120 mg/dl; Hemoglobin A1C 5.8 %
[2018-10-08] MEDS ORDERED: ARIPIPRAZOLE LAUROXIL IM SCH (11:30)
[2018-10-08] MEDS: traZODone 50 MG TABLET PO PRN (20:42)
[2018-10-09] MEDS: Divalproex (12 HR) 250 MG TABLET PO SCH ×2 (08:46→20:13)
[2018-10-09] MEDS: Loratadine 10 MG TABLET PO SCH (08:46)
[2018-10-09] MEDS: risperiDONE 1 MG TABLET PO SCH ×2 (08:46→20:13)
--- NOTE | 2018-10-09 09:22 | Psychiatry Progress Note ---
Date of Encounter: 10/09/18 Time of Encounter: 09:00 Subjective Interval history: Patient states he is doing much better. Feels the shot was really helpful. He denies auditory or visual hallucinations. Denies suicidal or homicidal thoughts, ideations, or plans. He prefers to go back to his long-term instead of [facility] when he leaves. Results - Vital Signs Vital Signs: Temp Pulse Resp BP Pulse Ox 98.4 F 82 16 138/84 100 10/08/18 20:26 10/08/18 20:26 10/08/18 20:26 10/08/18 20:26 10/08/18 20:26 - Labs Labs: Laboratory Results - last 24 hr 10/08/18 10/08/18 09:04 09:04 Sodium 136 Potassium 3.8 Chloride 104 Carbon Dioxide 22 L BUN 14 Creatinine 0.88 Est GFR ( Amer) > 60 Est GFR (Non-Af Amer) > 60 BUN/Creatinine Ratio 16 Glucose 121 H Est Mean Plasma Glucose 120 Hemoglobin A1c 5.8 H Calculated Osmolality 284 Calcium 9.4 Total Bilirubin 0.4 AST 13 ALT 9 Alkaline Phosphatase 78 Serum Total Protein 7.9 Albumin 4.3 Globulin 3.6 H Albumin/Globulin Ratio 1.2 Triglycerides 201 H Cholesterol 127 LDL Cholesterol, Calc 56 VLDL Cholesterol, Calc 40 H HDL Cholesterol 31 L Cholesterol/HDL Ratio 4.1 TSH 4.760 Valproic Acid 72 Assessment and Plan (1) Schizoaffective disorder, bipolar type Current visit: Yes Status: Acute Plan: Continue hospitalization, Close observation, Encourage participation in u nit milieu, Group Therapy, Monitor sleep, Monitor appetite Additional Plan: Depakote level is therapeutic at 72. Therapist will work on making sure that his long-term is ready for his return tomorrow. Continue medications. Risks, benefits, side effects, alternatives discussed w/pt: Yes Patient agreeable to treatment: Yes Consult Discharge Plan - Plan Referrals: NONE,PCP [Primary Care Provider] - Psychiatry Exam - Constitutional Vitals: Temp Pulse Resp BP Pulse Ox 98.4 F 82 16 138/84 100 10/08/18 20:26 10/08/18 20:26 10/08/18 20:26 10/08/18 20:26 10/08/18 20:26 General appearance: age & developmentally appropriate, obese - Musculoskeletal Gait: normal Station: relaxed Strength & Tone: normal for patient - Psychiatric Patient Orientation: Yes Person, Yes Time, Yes Place Level of alertness: Alert Behavior: calm, cooperative Psychomotor activity: Normal Eye Contact: Maintains Eye Contact Mood Description: Euthymic/stable Patient description of mood: Better Affect description: other (Restricted. At baseline.) Speech Volume: Normal Speech pattern: normal rate, normal rhythm, normal tone, fluent, spontaneous Language & Vocabulary: limited Thought Process: Linear, Goal Oriented Thought Content: No Suicidal ideation, No Homicidal ideation, No Overt delusions Perceptual Disturbances: No Auditory hallucinations, No Visual hallucinations Attention Span Ability: Capable of Focused Attention Memory Description: Grossly Intact Patient Reliability: Reliable Historian Fund of knowledge: Yes abstraction ability, Yes aware of current events Intelligence Estimate: Below Average Judgment: Limited Insight: Partial
[2018-10-09] MEDS: Nicotine 2 MG GUM BC PRN ×2 (10:20→18:18)
--- NOTE | 2018-10-10 08:14 | Discharge Summary ---
Date of Encounter: 10/10/18 Time of Encounter: 08:10 Diagnosis - Discharge Diagnosis (1) Schizoaffective disorder, bipolar type Status: Acute Medications - Discharge Medications Cetirizine HCl [Zyrtec] 10 mg PO HS 07/05/18 [History] Esomeprazole Magnesium [Nexium] 40 mg PO QAM 07/05/18 [History] Lisinopril [Zestril] 5 mg PO QAM 07/05/18 [History] Trazodone HCl 100 mg PO HS PRN 10/06/18 [History] risperiDONE [Risperidone] 4 mg PO BID 10/06/18 [History] Atorvastatin [Lipitor] 10 mg PO HS 10/08/18 [History] Divalproex Sodium 1,000 mg PO HS 10/08/18 [History] Divalproex Sodium 500 mg PO QAM 10/08/18 [History] Patient Taking Own Medication 0 each IM Q4W each 10/10/18 [Rx] Allergy/AdvReac Type Severity Reaction Status Date / Time No Known Allergies Allergy Verified 10/08/18 13:34 Results Procedures and tests throughout hospitalization: Completed Lab Orders Category Date Time Status Acetaminophen Stat Lab 10/06/18 12:30 Completed Basic Metabolic Panel Stat Lab 10/06/18 12:30 Completed Complete Blood Count [HEME] Routine Lab 10/08/18 09:04 Completed Comprehensive Metabolic Panel Routine Lab 10/08/18 09:04 Completed Drug Screen, Urine [UCHEM] Stat Lab 10/06/18 12:25 Completed Ethanol Stat Lab 10/06/18 12:30 Completed Hemoglobin and Hematocrit [HEME] Stat Lab 10/06/18 12:30 Completed Hgb A1C Routine Lab 10/08/18 09:04 Completed Lipid Panel Routine Lab 10/08/18 09:04 Completed Salicylate Stat Lab 10/06/18 12:30 Completed Thyroid Stimulating Hormone Routine Lab 10/08/18 09:04 Completed Thyroid Stimulating Hormone Stat Lab 10/06/18 12:30 Completed Urinalysis reflex Microscopic [URIN] Stat Lab 10/06/18 12:25 Completed Valproate AM 0400 Lab 10/08/18 09:04 Completed Valproate Stat Lab 10/06/18 12:30 Completed Lab Results 10/06/18 10/06/18 10/06/18 Range/Units 12:25 12:25 12:30 WBC (4.3-11.1) K/mcL RBC (4.19-5.50) M/mcL Hgb 14.0 (12.9-16.9) g/dL Hct 42.5 (37.5-50.1) % MCV (83.0-100.0) fL MCH (28.0-33.3) pg MCHC (31.6-35.5) g/dL RDW (11.5-14.5) % Plt Count (140-400) K/mcL MPV (9.4-12.4) fL Immature Gran % (0-4) % Seg Neutrophils % % Lymphocytes % % Monocytes % % Eosinophils % % Basophils % % Neutrophils # (1.6-8.9) K/mcL Lymphocytes # (0.6-4.6) K/mcL Monocytes # (0.0-1.3) K/mcL Eosinophils # (0.0-0.6) K/mcL Basophils # (0.0-0.2) K/mcL Sodium (136-145) mEq/L Potassium (3.5-5.1) mEq/L Chloride (98-107) mEq/L Carbon Dioxide (23-29) mEq/L BUN (6-20) mg/dL Creatinine (0.70-1.30) mg/dL Est GFR ( Amer) (> 60) Est GFR (Non-Af Amer) (> 60) BUN/Creatinine Ratio (6-26) Glucose (70-105) mg/dL Est Mean Plasma Glucose mg/dl Hemoglobin A1c ( - 5.6) % Calculated Osmolality (280-300) Calcium (8.6-10.3) mg/dL Total Bilirubin (0.3-1.0) mg/dL AST (13-39) Units/L ALT (7-52) Units/L Alkaline Phosphatase (34-104) Units/L Serum Total Protein (6.4-8.9) g/dL Albumin (3.5-5.7) g/dL Globulin (2.4-3.5) g/dL Albumin/Globulin Ratio (1.1-2.2) Triglycerides (< 150) mg/dL Cholesterol (< 200) mg/dL LDL Cholesterol, Calc (0-99) mg/dL VLDL Cholesterol, Calc (< 31) mg/dL HDL Cholesterol (40-59) mg/dL Cholesterol/HDL Ratio (0-4.9) TSH (0.340-5.600) mcIU/mL Urine Color Yellow (Yellow) Urine Clarity Clear (Clear) Urine pH 8.0 (5.0-8.0) pH Units Ur Specific Howell 1.026 H (1.010-1.025) Urine Protein Trace (Neg-Trace) mg/dL Urine Glucose (UA) Normal (Normal) mg/dL Urine Ketones Trace H (Negative) mg/dL Urine Blood Negative (Negative) Urine Nitrite Negative (Negative) Urine Bilirubin Negative (Negative) Urine Urobilinogen Normal (Normal) mg/dL Ur Leukocyte Esterase Negative (Negative) Salicylates (15.0-30.0) mg/dL Urine Opiates Screen Negative (Kcezlg=558) ng/mL Acetaminophen (10-20) mcg/mL Ur Barbiturates Screen Negative (Vnsvdc=660) ng/mL Valproic Acid (50-100) mcg/mL Ur Phencyclidine Scrn Negative (Cutoff=25) ng/mL Ur Amphetamines Screen Negative (Vtxeoq=8370) ng/mL U Benzodiazepines Scrn Negative (Nnnprh=938) ng/mL Urine Cocaine Screen Negative (Cutoff= 300) ng/mL U Marijuana (THC) Screen Negative (Cutoff = 50) ng/mL Ur Drug Screen Interp See Below Ethyl Alcohol (Less than 10) mg/dL 10/06/18 10/08/18 10/08/18 Range/Units 12:30 09:04 09:04 WBC 13.7 H (4.3-11.1) K/mcL RBC 4.73 (4.19-5.50) M/mcL Hgb 14.2 (12.9-16.9) g/dL Hct 43.0 (37.5-50.1) % MCV 90.9 (83.0-100.0) fL MCH 30.0 (28.0-33.3) pg MCHC 33.0 (31.6-35.5) g/dL RDW 12.5 (11.5-14.5) % Plt Count 302 (140-400) K/mcL MPV 10.1 (9.4-12.4) fL Immature Gran % 2.4 (0-4) % Seg Neutrophils % 62.3 % Lymphocytes % 25.6 % Monocytes % 7.3 % Eosinophils % 1.5 % Basophils % 0.9 % Neutrophils # 8.5 (1.6-8.9) K/mcL Lymphocytes # 3.5 (0.6-4.6) K/mcL Monocytes # 1.0 (0.0-1.3) K/mcL Eosinophils # 0.2 (0.0-0.6) K/mcL Basophils # 0.1 (0.0-0.2) K/mcL Sodium 136 136 (136-145) mEq/L Potassium 5.0 3.8 (3.5-5.1) mEq/L Chloride 104 104 (98-107) mEq/L Carbon Dioxide 25 22 L (23-29) mEq/L BUN 13 14 (6-20) mg/dL Creatinine 0.81 0.88 (0.70-1.30) mg/dL Est GFR ( Amer) > 60 > 60 (> 60) Est GFR (Non-Af Amer) > 60 > 60 (> 60) BUN/Creatinine Ratio 16 16 (6-26) Glucose 85 121 H (70-105) mg/dL Est Mean Plasma Glucose mg/dl Hemoglobin A1c ( - 5.6) % Calculated Osmolality 281 284 (280-300) Calcium 8.9 9.4 (8.6-10.3) mg/dL Total Bilirubin 0.4 (0.3-1.0) mg/dL AST 13 (13-39) Units/L ALT 9 (7-52) Units/L Alkaline Phosphatase 78 (34-104) Units/L Serum Total Protein 7.9 (6.4-8.9) g/dL Albumin 4.3 (3.5-5.7) g/dL Globulin 3.6 H (2.4-3.5) g/dL Albumin/Globulin Ratio 1.2 (1.1-2.2) Triglycerides 201 H (< 150) mg/dL Cholesterol 127 (< 200) mg/dL LDL Cholesterol, Calc 56 (0-99) mg/dL VLDL Cholesterol, Calc 40 H (< 31) mg/dL HDL Cholesterol 31 L (40-59) mg/dL Cholesterol/HDL Ratio 4.1 (0-4.9) TSH 3.440 4.760 (0.340-5.600) mcIU/mL Urine Color (Yellow) Urine Clarity (Clear) Urine pH (5.0-8.0) pH Units Ur Specific Howell (1.010-1.025) Urine Protein (Neg-Trace) mg/dL Urine Glucose (UA) (Normal) mg/dL Urine Ketones (Negative) mg/dL Urine Blood (Negative) Urine Nitrite (Negative) Urine Bilirubin (Negative) Urine Urobilinogen (Normal) mg/dL Ur Leukocyte Esterase (Negative) Salicylates < 2.5 L (15.0-30.0) mg/dL Urine Opiates Screen (Xqxgfz=051) ng/mL Acetaminophen < 10 L (10-20) mcg/mL Ur Barbiturates Screen (Hhkxlm=447) ng/mL Valproic Acid 79 72 (50-100) mcg/mL Ur Phencyclidine Scrn (Cutoff=25) ng/mL Ur Amphetamines Screen (Wykbji=3091) ng/mL U Benzodiazepines Scrn (Ozjkat=544) ng/mL Urine Cocaine Screen (Cutoff= 300) ng/mL U Marijuana (THC) Screen (Cutoff = 50) ng/mL Ur Drug Screen Interp Ethyl Alcohol < 10 (Less than 10) mg/dL 10/08/18 Range/Units 09:04 WBC (4.3-11.1) K/mcL RBC (4.19-5.50) M/mcL Hgb (12.9-16.9) g/dL Hct (37.5-50.1) % MCV (83.0-100.0) fL MCH (28.0-33.3) pg MCHC (31.6-35.5) g/dL RDW (11.5-14.5) % Plt Count (140-400) K/mcL MPV (9.4-12.4) fL Immature Gran % (0-4) % Seg Neutrophils % % Lymphocytes % % Monocytes % % Eosinophils % % Basophils % % Neutrophils # (1.6-8.9) K/mcL Lymphocytes # (0.6-4.6) K/mcL Monocytes # (0.0-1.3) K/mcL Eosinophils # (0.0-0.6) K/mcL Basophils # (0.0-0.2) K/mcL Sodium (136-145) mEq/L Potassium (3.5-5.1) mEq/L Chloride (98-107) mEq/L Carbon Dioxide (23-29) mEq/L BUN (6-20) mg/dL Creatinine (0.70-1.30) mg/dL Est GFR ( Amer) (> 60) Est GFR (Non-Af Amer) (> 60) BUN/Creatinine Ratio (6-26) Glucose (70-105) mg/dL Est Mean Plasma Glucose 120 mg/dl Hemoglobin A1c 5.8 H ( - 5.6) % Calculated Osmolality (280-300) Calcium (8.6-10.3) mg/dL Total Bilirubin (0.3-1.0) mg/dL AST (13-39) Units/L ALT (7-52) Units/L Alkaline Phosphatase (34-104) Units/L Serum Total Protein (6.4-8.9) g/dL Albumin (3.5-5.7) g/dL Globulin (2.4-3.5) g/dL Albumin/Globulin Ratio (1.1-2.2) Triglycerides (< 150) mg/dL Cholesterol (< 200) mg/dL LDL Cholesterol, Calc (0-99) mg/dL VLDL Cholesterol, Calc (< 31) mg/dL HDL Cholesterol (40-59) mg/dL Cholesterol/HDL Ratio (0-4.9) TSH (0.340-5.600) mcIU/mL Urine Color (Yellow) Urine Clarity (Clear) Urine pH (5.0-8.0) pH Units Ur Specific Howell (1.010-1.025) Urine Protein (Neg-Trace) mg/dL Urine Glucose (UA) (Normal) mg/dL Urine Ketones (Negative) mg/dL Urine Blood (Negative) Urine Nitrite (Negative) Urine Bilirubin (Negative) Urine Urobilinogen (Normal) mg/dL Ur Leukocyte Esterase (Negative) Salicylates (15.0-30.0) mg/dL Urine Opiates Screen (Mhggif=947) ng/mL Acetaminophen (10-20) mcg/mL Ur Barbiturates Screen (Vxwdyz=656) ng/mL Valproic Acid (50-100) mcg/mL Ur Phencyclidine Scrn (Cutoff=25) ng/mL Ur Amphetamines Screen (Rzpati=3290) ng/mL U Benzodiazepines Scrn (Rkbkdn=894) ng/mL Urine Cocaine Screen (Cutoff= 300) ng/mL U Marijuana (THC) Screen (Cutoff = 50) ng/mL Ur Drug Screen Interp Ethyl Alcohol (Less than 10) mg/dL Provider Date of admission: 10/06/18 22:16 Primary care physician: PCP NONE Discharging clinician: Ann Ochoa Psychiatry Exam - Constitutional Vitals: Temp Pulse Resp BP Pulse Ox 99 F 122 20 111/78 99 10/09/18 19:58 10/09/18 19:58 10/09/18 19:58 10/09/18 19:58 10/09/18 19:58 General appearance: age & developmentally appropriate, well-nourished, disheveled (baseline), obese - Musculoskeletal Gait: normal Station: relaxed Strength & Tone: normal for patient - Psychiatric Patient Orientation: Yes Person, Yes Time, Yes Place Level of alertness: Alert Behavior: calm, cooperative Psychomotor activity: Normal Eye Contact: Maintains Eye Contact Mood Description: Euthymic/stable Patient description of mood: good Affect description: congruent with mood, constricted Speech Volume: Normal Speech pattern: normal rate, normal rhythm, normal tone, fluent, spontaneous Language & Vocabulary: consistent with education Thought Process: Linear, Goal Oriented Thought Content: No Suicidal ideation, No Homicidal ideation, No Overt delusions Perceptual Disturbances: No Auditory hallucinations, No Visual hallucinations Attention Span Ability: Capable of Focused Attention Memory Description: Grossly Intact Patient Reliability: Reliable Historian Fund of knowledge: Yes abstraction ability, Yes aware of current events Intelligence Estimate: Average Judgment: Good Insight: Full Hospital Course Hospital course: Mr. Bass is a 27 year old male who was admitted for worsening psychosis since his Airistada injection had been stopped when he was at [facility] for psychiatry. We restarted his Airstada injection and he did well with this. Patient was educated of diagnosis and the risk-benefit side effects of this alternative treatment options and was monitored for responsiveness and side effects. Mood anxiety sleep and appetite interest improved as did future orientation. Self-harm thoughts subsided, thinking cleared, psychosis resolved, and mood stabilized. Patient was able to attend both individual and group therapy sessions as well as meet with the psychiatrist daily and urged to discuss any medication or treatment issues or other concerns. The patient was educated primarily by verbal means about their diagnosis and manifestations in their life. The option for treatment including group and individual therapy programming was offered to the patient in addition to the use of medications with all their potential risks, benefits, and side effects as well as the risks of not taking medication and non-adhereance were discussed with the patient at length. The patient was given the opportunity to ask questions and was noted to participate in the treatment in the planning process. The patient felt ready and eager to be discharged from the inpatient psychiatric unit to continue on with treatment as an outpatient. The patient agreed that is they were safe for this disposition. The patient was considered to be able to participate in presentation medical center consent and decision making with respect to medical, legal, and financial issues of the time of discharge. At the time of discharge the patient adamantly denied any concerns for lethality including suicidal or homicidal thoughts ideations or plans and was future oriented toward ongoing mental health care, medical follow-up and sobriety. Time spent discussing smoking cessation with patient: 3 to 10 minutes Does patient wish to continue nicotine replacement upon disc: No - Time Spent with Patient Total time spent providing and/or coordinating discharge services: 25 Less than 30 minutes Specific discharge activities: Interval history reviewed. Available labs reviewed . Psychotherapy provided. Patient had an opportunity to ask questions and address concerns. Patient was in agreement with the treatment plan. The risks benefits and side effects of medications were discussed with the patient, including alternatives and treatment. The patient was educated on the abstaining from any alcohol or illicit substances, following up with all scheduled appointments, and taking all medications as prescribed. Assessment and Plan - Patient/Caregiver Discharge Instructions Activity: resume usual activities as tolerated Diet: regular diet Additional Instructions: Continue current medications. Follow up with outpatient mental health. Encourage continued therapy in a group or individual setting. The patient was discharged to home. - Follow up Plan Follow up with: NONE,PCP [Primary Care Provider] - Overall status at discharge: Stable Disposition: Home, Self-Care Quality - Multiple Antipsychotics Patient discharged on 2 or more antipsychotic medications: Yes - Justification Documentation of: History 3 failed trials of monotherapy (risperda;, abilify, haldol) Procedures - Procedures Procedures: Medication Management, Crisis Stabilization, Supportive Therapy, Group Therapy, Psychoeducational Therapy
[2018-10-10] MEDS: risperiDONE 1 MG TABLET PO SCH (09:00)
[2018-10-10] MEDS: Divalproex (12 HR) 250 MG TABLET PO SCH (09:00)
[2018-10-10] MEDS: Loratadine 10 MG TABLET PO SCH (09:01)
[2018-10-10 10:31] VITALS: BP 131/80
== END 2018-10-10 13:00 | disposition home or self-care (01) | DRG 750 ==
LOC: EMEROOARM 11:30 → SUATTDRO 22:16 → 1ANU 22:16
PROVIDERS: ADMIT Psychiatry & Neurology Psychiatry; ATTEND Psychiatry & Neurology Psychiatry

== ENCOUNTER 2018-12-11 21:19 | Inpatient (IN) ==
--- NOTE | 2018-12-11 21:52 | Emergency Department Note ---
Disposition Clinical Impression: Suicidal ideation Disposition: Admitted As Inpatient Condition: Good Time of Disposition: 04:48 General Adult HPI - General Chief complaint: ED Psychiatric Symptoms Stated complaint: SI Time Seen by Provider: 12/11/18 21:34 Source: patient Mode of arrival: ambulatory Limitations: no limitations Nursing Notes Reviewed: Yes Vital Signs Reviewed: Yes - History of Present Illness HPI Narrative: Patient is a 28-year-old male that since emergency department due to suicidal ideations. The patient's caregiver states that he has a history of suicidal ideations and previous plan. Patient has having a plan at this time. Patient's wound care center consultant states that he did run out of the house without shoes and run down the street, scheduled by a car. Patient states that he feels like his thoughts are racing and that his mind will not shut off. Caregiver states that there was a recent addition of his abilify back to his medication list. Patient denies any homicidal ideation. Patient has occurred visual hallucination. Patient follows with a psychiatrist at [facility]. Pain Scale: 0 - Related Data Home Medications Medication Instructions Recorded Confirmed Cetirizine HCl [Zyrtec] 10 mg PO HS 07/05/18 12/11/18 Esomeprazole Magnesium [Nexium] 40 mg PO QAM 07/05/18 12/11/18 Lisinopril [Zestril] 5 mg PO QAM 07/05/18 12/11/18 risperiDONE [Risperidone] 4 mg PO BID 10/06/18 12/11/18 Atorvastatin [Lipitor] 10 mg PO HS 10/08/18 12/11/18 Divalproex Sodium 1,000 mg PO HS 10/08/18 12/11/18 Divalproex Sodium 500 mg PO QAM 10/08/18 12/11/18 Doxepin 50 mg PO HS 12/11/18 12/11/18 Previous Rx's Medication Instructions Recorded Aripiprazole Lauroxil [Aristada] 662 mg IM Q4W #1 [email or web address] 10/10/18 Patient Taking Own Medication 0 each IM Q4W each 10/10/18 Allergies Allergy/AdvReac Type Severity Reaction Status Date / Time No Known Allergies Allergy Verified 10/08/18 13:34 All systems ED: reviewed and negative except as stated. Cardiovascular: Denies: chest pain Respiratory: Denies: dyspnea Gastrointestinal: Denies: abdominal pain Psychiatric: Reports: anxiety, depression, suicidal thoughts. Denies: homicidal thoughts, auditory hallucinations, visual hallucinations Past Medical History - Past Medical History Medical history: Reports: GERD, hyperlipidemia, hypertension, other Surgical history: Reports: other Psychiatric history: Reports: bipolar, PTSD, schizophrenia, previous psychiatric hospitalization, other - Social History Smoking Status: Current every day smoker Smokeless Tobacco Status: No Alcohol use: Reports: none Drug use: Reports: none Physical Exam - General Limitations: no limitations General appearance: alert, in no apparent distress - Head Head exam: atraumatic, normocephalic - Eye Eye exam: Present: normal appearance, EOMI - Neck Neck exam: Present: normal inspection, full ROM, trachea midline - Respiratory Respiratory exam: Present: normal lung sounds bilaterally. Absent: respiratory distress, wheezes - Cardiovascular Cardiovascular exam: Present: regular rate, normal rhythm, normal heart sounds, +S1, +S2 - Abdominal Exam Abdominal exam: Present: soft, Non-Tender, normal bowel sounds - Neurological Exam Neurological exam: Present: alert, oriented X3 - Psychiatric Psychiatric exam: Present: normal affect, normal mood - Skin Skin exam: Present: warm, dry, intact Course Vital Signs Temperature 98.4 F 12/11/18 21:24 Pulse Rate 125 12/11/18 21:24 Respiratory Rate 20 12/11/18 21:24 Blood Pressure 155/104 12/11/18 21:24 O2 Sat by Pulse Oximetry 96 12/11/18 21:24 Temperature 98.4 F 12/12/18 01:29 Pulse Rate 112 12/12/18 01:29 Respiratory Rate 18 12/12/18 01:29 Blood Pressure 128/75 12/12/18 01:29 O2 Sat by Pulse Oximetry 92 12/12/18 01:29 Oxygen Delivery Oxygen Delivery Room Air Medical Decision Making - [facility] Narrative Medical decision making narrative: Due the patient is not emergency department with reports of suicidal ideation medical screening labs were obtained which showed a mild nonspecific leukocytosis of 13.1. Admitted lab for testing is relatively unremarkable. [facility] will be contacted to evaluate the patient from a psychiatric standpoint. We will await their recommendations. [facility] came to evaluate the patient at bedside here in the emergency department and recommended placement for the patient. We will work on this and the patient and they are unable to place him they will ad stacie him here to [facility]. We will await their final recommendations on placement. The patient will remain a cycle here in the emergency department until placement has been determined. [facility] has decided to admit the patient here at [place]. Patient will be admitted to the [facility] psychiatric team here for further evaluation and management of his suicidal ideations. - Medical Records Medical records reviewed: Yes I reviewed the patient's medical records. - Lab Data Lab results reviewed: Yes I reviewed the patient's lab results. Result diagrams: 12/11/18 21:42 12/11/18 21:42 Lab Results 12/11/18 12/11/18 12/11/18 Range/Units 21:32 21:42 21:42 WBC 13.1 H (4.3-11.1) K/mcL RBC 4.39 (4.19-5.50) M/mcL Hgb 13.2 (12.9-16.9) g/dL Hct 39.2 (37.5-50.1) % MCV 89.3 (83.0-100.0) fL MCH 30.1 (28.0-33.3) pg MCHC 33.7 (31.6-35.5) g/dL RDW 12.5 (11.5-14.5) % Plt Count 283 (140-400) K/mcL MPV 10.4 (9.4-12.4) fL Immature Gran % 1.5 (0-4) % Seg Neutrophils % 62.3 % Lymphocytes % 23.6 % Monocytes % 9.1 % Eosinophils % 2.7 % Basophils % 0.8 % Neutrophils # 8.2 (1.6-8.9) K/mcL Lymphocytes # 3.1 (0.6-4.6) K/mcL Monocytes # 1.2 (0.0-1.3) K/mcL Eosinophils # 0.4 (0.0-0.6) K/mcL Basophils # 0.1 (0.0-0.2) K/mcL Sodium 137 (136-145) mEq/L Potassium 3.7 (3.5-5.1) mEq/L Chloride 105 (98-107) mEq/L Carbon Dioxide 23 (23-29) mEq/L BUN 11 (6-20) mg/dL Creatinine 0.84 (0.70-1.30) mg/dL Est GFR ( Amer) > 60 (> 60) Est GFR (Non-Af Amer) > 60 (> 60) BUN/Creatinine Ratio 13 (6-26) Glucose 112 H (70-105) mg/dL Calculated Osmolality 284 (280-300) Calcium 9.0 (8.6-10.3) mg/dL Urine Color Yellow (Yellow) Urine Clarity Clear (Clear) Urine pH 7.0 (5.0-8.0) pH Units Ur Specific Draper 1.026 H (1.010-1.025) Urine Protein Trace (Neg-Trace) mg/dL Urine Glucose (UA) Normal (Normal) mg/dL Urine Ketones Negative (Negative) mg/dL Urine Blood Negative (Negative) Urine Nitrite Negative (Negative) Urine Bilirubin Negative (Negative) Urine Urobilinogen Normal (Normal) mg/dL Ur Leukocyte Esterase Negative (Negative) Salicylates < 2.5 L (15.0-30.0) mg/dL Urine Opiates Screen (Nykqtf=415) ng/mL Ur Buprenorphine Scrn (Cutoff=5) ng/mL Acetaminophen < 10 L (10-20) mcg/mL Ur Barbiturates Screen (Iwurhz=107) ng/mL Ur Phencyclidine Scrn (Cutoff=25) ng/mL Ur Amphetamines Screen (Habtvv=4846) ng/mL U Benzodiazepines Scrn (Zkkcuq=123) ng/mL Urine Cocaine Screen (Cutoff= 300) ng/mL U Marijuana (THC) Screen (Cutoff = 50) ng/mL Ur Drug Screen Interp Ethyl Alcohol < 10 (Less than 10) mg/dL 12/11/18 Range/Units 21:48 WBC (4.3-11.1) K/mcL RBC (4.19-5.50) M/mcL Hgb (12.9-16.9) g/dL Hct (37.5-50.1) % MCV (83.0-100.0) fL MCH (28.0-33.3) pg MCHC (31.6-35.5) g/dL RDW (11.5-14.5) % Plt Count (140-400) K/mcL MPV (9.4-12.4) fL Immature Gran % (0-4) % Seg Neutrophils % % Lymphocytes % % Monocytes % % Eosinophils % % Basophils % % Neutrophils # (1.6-8.9) K/mcL Lymphocytes # (0.6-4.6) K/mcL Monocytes # (0.0-1.3) K/mcL Eosinophils # (0.0-0.6) K/mcL Basophils # (0.0-0.2) K/mcL Sodium (136-145) mEq/L Potassium (3.5-5.1) mEq/L Chloride (98-107) mEq/L Carbon Dioxide (23-29) mEq/L BUN (6-20) mg/dL Creatinine (0.70-1.30) mg/dL Est GFR ( Amer) (> 60) Est GFR (Non-Af Amer) (> 60) BUN/Creatinine Ratio (6-26) Glucose (70-105) mg/dL Calculated Osmolality (280-300) Calcium (8.6-10.3) mg/dL Urine Color (Yellow) Urine Clarity (Clear) Urine pH (5.0-8.0) pH Units Ur Specific Draper (1.010-1.025) Urine Protein (Neg-Trace) mg/dL Urine Glucose (UA) (Normal) mg/dL Urine Ketones (Negative) mg/dL Urine Blood (Negative) Urine Nitrite (Negative) Urine Bilirubin (Negative) Urine Urobilinogen (Normal) mg/dL Ur Leukocyte Esterase (Negative) Salicylates (15.0-30.0) mg/dL Urine Opiates Screen Negative (Zmkxul=700) ng/mL Ur Buprenorphine Scrn Negative (Cutoff=5) ng/mL Acetaminophen (10-20) mcg/mL Ur Barbiturates Screen Negative (Sbpyvc=387) ng/mL Ur Phencyclidine Scrn Negative (Cutoff=25) ng/mL Ur Amphetamines Screen Negative (Ruccza=4012) ng/mL U Benzodiazepines Scrn Negative (Krwlsu=161) ng/mL Urine Cocaine Screen Negative (Cutoff= 300) ng/mL U Marijuana (THC) Screen Negative (Cutoff = 50) ng/mL Ur Drug Screen Interp See Below Ethyl Alcohol (Less than 10) mg/dL
[2018-12-11 22:01] LABS: Bilirubin,Urine Negative (Negative); Blood,Urine Negative (Negative); Clarity,Urine Clear (Clear); Color,Urine Yellow (Yellow); Glucose,Urine (UA) Normal (Normal); Ketones,Urine Negative (Negative); Leukocyte Esterase,Urine Negative (Negative); Nitrite,Urine Negative (Negative); Protein,Urine Trace mg/dL (Neg-Trace); Specific Gravity,Urine 1.026 (1.010-1.025); Urobilinogen,Urine Normal (Normal)
[2018-12-11 22:04] LABS: Basophils # 0.1 K/mcL (0.0-0.2); Basophils % 0.8 %; Eosinophils # 0.4 K/mcL (0.0-0.6); Eosinophils % 2.7 %; Hematocrit 39.2 % (37.5-50.1); Hemoglobin 13.2 g/dL (12.9-16.9); Immature Granulocytes % 1.5 % (0-4); Lymphocytes # 3.1 K/mcL (0.6-4.6); Lymphocytes % 23.6 %; Mean Corpuscular HGB Conc 33.7 g/dL (31.6-35.5); Mean Corpuscular Hemoglobin 30.1 pg (28.0-33.3); Mean Corpuscular Volume 89.3 fL (83.0-100.0); Mean Platelet Volume 10.4 fL (9.4-12.4); Monocytes # 1.2 K/mcL (0.0-1.3); Monocytes % 9.1 %; Neutrophils # 8.2 K/mcL (1.6-8.9); Platelet Count 283 K/mcL (140-400); Red Blood Count 4.39 M/mcL (4.19-5.50); Red Cell Distribution Width 12.5 % (11.5-14.5); Segmented Neutrophils % 62.3 %; White Blood Count 13.1 K/mcL (4.3-11.1)
[2018-12-11 22:05] LABS: Amphetamine Screen,Urine Negative ng/mL (Cutoff=1000); Barbiturate Screen,Urine Negative ng/mL (Cutoff=200); Benzodiazepines Screen,Urine Negative ng/mL (Cutoff=200); Cannabinoid Screen,Urine Negative ng/mL (Cutoff = 50); Cocaine Screen,Urine Negative ng/mL (Cutoff= 300); Opiate Screen,Urine Negative ng/mL (Cutoff=300); Phencyclidine Screen,Urine Negative ng/mL (Cutoff=25)
--- NOTE | 2018-12-11 22:13 | Emergency Department Note ---
Disposition Clinical Impression: Suicidal ideation Disposition: Admitted As Inpatient Condition: Good Time of Disposition: 04:48 General Adult HPI - General Chief complaint: ED Psychiatric Symptoms Stated complaint: SI Time Seen by Provider: 12/11/18 21:34 Source: patient Mode of arrival: ambulatory Limitations: no limitations Nursing Notes Reviewed: Yes Vital Signs Reviewed: Yes - History of Present Illness Pain Scale: 0 - Related Data Home Medications Medication Instructions Recorded Confirmed Cetirizine HCl [Zyrtec] 10 mg PO HS 07/05/18 12/11/18 Esomeprazole Magnesium [Nexium] 40 mg PO QAM 07/05/18 12/11/18 Lisinopril [Zestril] 5 mg PO QAM 07/05/18 12/11/18 risperiDONE [Risperidone] 4 mg PO BID 10/06/18 12/11/18 Atorvastatin [Lipitor] 10 mg PO HS 10/08/18 12/11/18 Divalproex Sodium 1,000 mg PO HS 10/08/18 12/11/18 Divalproex Sodium 500 mg PO QAM 10/08/18 12/11/18 Doxepin 50 mg PO HS 12/11/18 12/11/18 Previous Rx's Medication Instructions Recorded Aripiprazole Lauroxil [Aristada] 662 mg IM Q4W #1 suser.syr 10/10/18 Patient Taking Own Medication 0 each IM Q4W each 10/10/18 Allergies Allergy/AdvReac Type Severity Reaction Status Date / Time No Known Allergies Allergy Verified 10/08/18 13:34 Cardiovascular: Denies: chest pain Respiratory: Denies: dyspnea Gastrointestinal: Denies: abdominal pain Psychiatric: Reports: anxiety, depression, suicidal thoughts. Denies: homicidal thoughts, auditory hallucinations, visual hallucinations Past Medical History - Past Medical History Medical history: Reports: GERD, hyperlipidemia, hypertension, other Surgical history: Reports: other Psychiatric history: Reports: bipolar, PTSD, schizophrenia, previous psychiatric hospitalization, other - Social History Smoking Status: Current every day smoker Smokeless Tobacco Status: No Alcohol use: Reports: none Drug use: Reports: none Physical Exam - General Limitations: no limitations General appearance: alert, in no apparent distress Course Vital Signs Temperature 98.4 F 12/11/18 21:24 Pulse Rate 125 12/11/18 21:24 Respiratory Rate 20 12/11/18 21:24 Blood Pressure 155/104 12/11/18 21:24 O2 Sat by Pulse Oximetry 96 12/11/18 21:24 Temperature 98.4 F 12/12/18 01:29 Pulse Rate 112 12/12/18 01:29 Respiratory Rate 18 12/12/18 01:29 Blood Pressure 128/75 12/12/18 01:29 O2 Sat by Pulse Oximetry 92 12/12/18 01:29 Oxygen Delivery Oxygen Delivery Room Air Medical Decision Making - Lab Data Lab results reviewed: Yes I reviewed the patient's lab results. Result diagrams: 12/11/18 21:42 12/11/18 21:42 Lab Results 12/11/18 12/11/18 12/11/18 Range/Units 21:32 21:42 21:42 WBC 13.1 H (4.3-11.1) K/mcL RBC 4.39 (4.19-5.50) M/mcL Hgb 13.2 (12.9-16.9) g/dL Hct 39.2 (37.5-50.1) % MCV 89.3 (83.0-100.0) fL MCH 30.1 (28.0-33.3) pg MCHC 33.7 (31.6-35.5) g/dL RDW 12.5 (11.5-14.5) % Plt Count 283 (140-400) K/mcL MPV 10.4 (9.4-12.4) fL Immature Gran % 1.5 (0-4) % Seg Neutrophils % 62.3 % Lymphocytes % 23.6 % Monocytes % 9.1 % Eosinophils % 2.7 % Basophils % 0.8 % Neutrophils # 8.2 (1.6-8.9) K/mcL Lymphocytes # 3.1 (0.6-4.6) K/mcL Monocytes # 1.2 (0.0-1.3) K/mcL Eosinophils # 0.4 (0.0-0.6) K/mcL Basophils # 0.1 (0.0-0.2) K/mcL Sodium 137 (136-145) mEq/L Potassium 3.7 (3.5-5.1) mEq/L Chloride 105 (98-107) mEq/L Carbon Dioxide 23 (23-29) mEq/L BUN 11 (6-20) mg/dL Creatinine 0.84 (0.70-1.30) mg/dL Est GFR ( Amer) > 60 (> 60) Est GFR (Non-Af Amer) > 60 (> 60) BUN/Creatinine Ratio 13 (6-26) Glucose 112 H (70-105) mg/dL Calculated Osmolality 284 (280-300) Calcium 9.0 (8.6-10.3) mg/dL Urine Color Yellow (Yellow) Urine Clarity Clear (Clear) Urine pH 7.0 (5.0-8.0) pH Units Ur Specific [place] 1.026 H (1.010-1.025) Urine Protein Trace (Neg-Trace) mg/dL Urine Glucose (UA) Normal (Normal) mg/dL Urine Ketones Negative (Negative) mg/dL Urine Blood Negative (Negative) Urine Nitrite Negative (Negative) Urine Bilirubin Negative (Negative) Urine Urobilinogen Normal (Normal) mg/dL Ur Leukocyte Esterase Negative (Negative) Salicylates < 2.5 L (15.0-30.0) mg/dL Urine Opiates Screen (Jckxih=524) ng/mL Ur Buprenorphine Scrn (Cutoff=5) ng/mL Acetaminophen < 10 L (10-20) mcg/mL Ur Barbiturates Screen (Svowhn=674) ng/mL Ur Phencyclidine Scrn (Cutoff=25) ng/mL Ur Amphetamines Screen (Ckjhid=5577) ng/mL U Benzodiazepines Scrn (Qhrbok=255) ng/mL Urine Cocaine Screen (Cutoff= 300) ng/mL U Marijuana (THC) Screen (Cutoff = 50) ng/mL Ur Drug Screen Interp Ethyl Alcohol < 10 (Less than 10) mg/dL 12/11/18 Range/Units 21:48 WBC (4.3-11.1) K/mcL RBC (4.19-5.50) M/mcL Hgb (12.9-16.9) g/dL Hct (37.5-50.1) % MCV (83.0-100.0) fL MCH (28.0-33.3) pg MCHC (31.6-35.5) g/dL RDW (11.5-14.5) % Plt Count (140-400) K/mcL MPV (9.4-12.4) fL Immature Gran % (0-4) % Seg Neutrophils % % Lymphocytes % % Monocytes % % Eosinophils % % Basophils % % Neutrophils # (1.6-8.9) K/mcL Lymphocytes # (0.6-4.6) K/mcL Monocytes # (0.0-1.3) K/mcL Eosinophils # (0.0-0.6) K/mcL Basophils # (0.0-0.2) K/mcL Sodium (136-145) mEq/L Potassium (3.5-5.1) mEq/L Chloride (98-107) mEq/L Carbon Dioxide (23-29) mEq/L BUN (6-20) mg/dL Creatinine (0.70-1.30) mg/dL Est GFR ( Amer) (> 60) Est GFR (Non-Af Amer) (> 60) BUN/Creatinine Ratio (6-26) Glucose (70-105) mg/dL Calculated Osmolality (280-300) Calcium (8.6-10.3) mg/dL Urine Color (Yellow) Urine Clarity (Clear) Urine pH (5.0-8.0) pH Units Ur Specific [place] (1.010-1.025) Urine Protein (Neg-Trace) mg/dL Urine Glucose (UA) (Normal) mg/dL Urine Ketones (Negative) mg/dL Urine Blood (Negative) Urine Nitrite (Negative) Urine Bilirubin (Negative) Urine Urobilinogen (Normal) mg/dL Ur Leukocyte Esterase (Negative) Salicylates (15.0-30.0) mg/dL Urine Opiates Screen Negative (Tolgkw=930) ng/mL Ur Buprenorphine Scrn Negative (Cutoff=5) ng/mL Acetaminophen (10-20) mcg/mL Ur Barbiturates Screen Negative (Gnouaq=360) ng/mL Ur Phencyclidine Scrn Negative (Cutoff=25) ng/mL Ur Amphetamines Screen Negative (Rlzptm=1179) ng/mL U Benzodiazepines Scrn Negative (Pmjlbf=310) ng/mL Urine Cocaine Screen Negative (Cutoff= 300) ng/mL U Marijuana (THC) Screen Negative (Cutoff = 50) ng/mL Ur Drug Screen Interp See Below Ethyl Alcohol (Less than 10) mg/dL Attestation Statement - Attestation Attestation: I, Akil Cordon MD, personally evaluated this patient and discussed their management with the resident physician. I reviewed the resident's note and agree with the documented findings, medical decision making, and plan of care. 28-year-old male presents to the emergency department with a complaint of increased anxiety and mood swings and also suicidal ideation. He denies homicidal ideation. He denies hallucinations. Patient has a long psychiatric history and has had multiple psychiatric admissions. On examination patient is a well-developed well-nourished male in no acute distress. He is alert and oriented 3. There is no cyanosis or diaphoresis. Breath sounds are clear and equal bilaterally. Heart regular rate and rhythm. Abdomen is soft and nontender with normal bowel sounds. Labs reviewed. Patient medically cleared for psychiatric evaluation. [address] psychiatry department was consulted and evaluated patient in the emergency department. After evaluation patient is being admitted to the [address] psychiatric unit.
[2018-12-11 22:16] LABS: Acetaminophen < 10 mcg/mL (10-20); BUN/Creatinine Ratio 13 (6-26); Blood Urea Nitrogen 11 mg/dL (6-20); Carbon Dioxide 23 mEq/L (23-29); Chloride 105 mEq/L (98-107); Ethanol < 10 mg/dL (Less than 10); Glucose 112 mg/dL (70-105); Osmolality,Calculated 284 (280-300); Potassium 3.7 mEq/L (3.5-5.1); Salicylate < 2.5 mg/dL (15.0-30.0); Sodium 137 mEq/L (136-145); eGFR For African Americans > 60 (> 60); eGFR For Non-African Americans > 60 (> 60)
[2018-12-12] MEDS ORDERED: MOM Conc 10 ML UD.LIQ PO PRN (06:47)
[2018-12-12] MEDS ORDERED: Acetaminophen 325 MG TABLET PO PRN (06:47)
[2018-12-12] MEDS ORDERED: Haloperidol Lactate 5 MG/ML VIAL IM PRN (06:47)
[2018-12-12] MEDS ORDERED: hydrOXYzine pamoate 25 MG CAPSULE PO PRN (06:47)
[2018-12-12] MEDS ORDERED: *HR* LORazepam 2 MG/ML VIAL IM PRN (06:47)
[2018-12-12] MEDS ORDERED: Mag Hydrox/Al Hydrox/Simeth 30 ML UDC PO PRN (06:47)
[2018-12-12] MEDS ORDERED: traZODone 50 MG TABLET PO PRN (06:47)
[2018-12-12] MEDS ORDERED: *HR* LORazepam 1 MG TABLET PO PRN (06:47)
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
--- NOTE | 2018-12-12 10:17 | Psychiatry History & Physical ---
Date of Encounter: 12/12/18 Time of Encounter: 09:20 History of Present Illness Patient Stated Chief Complaint: SI Medicare Admission Attestation: For traditional Medicare patients the provided hospital inpatient services are reasonable and necessary and in the case of services not specified as inpatient-only under 42 CFR 419.22 (n), that they are appropriately provided as inpatient services in accordance 42 CFR 412.3. For Critical Access Hospital the patient may reasonably be expected to be discharged or transferred to a hospital within 96 hours after admission to the Critical Access Hospital. Admitted From: Emergency Dept Plans for Post Hospital Care: Home History of Present Illness: Mr. Bass is a 28 year old male who was admitted from the ED for SI. Client estimates 10 prior hospitalizations to for psychiatric concerns in the past. Client has a history of bipolar, schizophrenia, and PTSD as well as MRDD. He is well linked with services through the [facility] with health care and resides in [place] [facility] [place] with live in staff. 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 He started having SI during all of this and admitted to me that he had no plan at the time. HE has had this happen before and states that he only has SI when he is "stressed out". MedHX: HTN, pre-diabetes, acid reflux, hyperlipidemia Surg/ hospHX: multiple previous hospitalization for mental health Psych: Bipolar, schizophrenia, PTSD Psych medications: High dose Risperdal, a long acting Abilify injection and Depakote Social: lies with 3 roommates in a [place] [facility] through [facility], feels safe and likes where he lives. Does not currently have a job. Eats fast food multiple times per week and walks 2x/week for exercise. Smokes 1.5 PPD for 12 years, no EtOH/ tobacco/ drugs. FamHX: Mom has schizophrenia and past suicide attempt as well as DM. No hx on Dad. Sexual Hx: not sexually active, no hx of STIs. Past Med Surg Social Fam HX - Past Medical History Medical history: GERD, hyperlipidemia, hypertension, other - Past Surgical History Surgical History: other - Social History Smoking Status: Current every day smoker Smokeless Tobacco Status: No Alcohol use: none Drug use: none - Family History Mother Hx Family Cardiac Disorders: Yes (blood clots) Father Hx Family HEENT Disorders: Yes (glaucoma) Medications & Allergies Cetirizine HCl [Zyrtec] 10 mg PO HS 07/05/18 [History] Esomeprazole Magnesium [Nexium] 40 mg PO QAM 07/05/18 [History] Lisinopril [Zestril] 5 mg PO QAM 07/05/18 [History] risperiDONE [Risperidone] 4 mg PO BID 10/06/18 [History] Atorvastatin [Lipitor] 10 mg PO HS 10/08/18 [History] Divalproex Sodium 1,000 mg PO HS 10/08/18 [History] Divalproex Sodium 500 mg PO QAM 10/08/18 [History] Aripiprazole Lauroxil [Aristada] 662 mg IM Q4W #1 suser.syr 10/10/18 [Rx] Patient Taking Own Medication 0 each IM Q4W each 10/10/18 [Rx] Doxepin 50 mg PO HS 12/11/18 [History] Allergy/AdvReac Type Severity Reaction Status Date / Time No Known Allergies Allergy Verified 10/08/18 13:34 Review of Systems Psychiatric: Reports: depression, anxiety, suicidal ideation, anhedonia, difficulty concentrating, mood swings Exam - Constitutional Vitals: Temp Pulse Resp BP Pulse Ox 97.1 F L 105 18 141/87 95 12/12/18 06:33 12/12/18 06:33 12/12/18 06:33 12/12/18 06:33 12/12/18 06:33 General appearance: age & developmentally appropriate, well-nourished, obese - Musculoskeletal Gait: slow Station: relaxed - Psychiatric Patient Orientation: Yes Person, Yes Time, Yes Place, Yes Circumstance Level of alertness: Alert Behavior: calm, cooperative, withdrawn Psychomotor activity: Normal Eye Contact: Maintains Eye Contact Mood Description: Depressed, Anxious Patient description of mood: stressed out and sad Affect description: congruent with mood Speech Volume: Normal Speech pattern: fluent, clear, coherent, monotone Language & Vocabulary: consistent with education Thought Process: Circumstantial, Slowed Thinking Thought Content: Yes Intact Attention Span Ability: Capable of Sustained Attention Patient Reliability: Questionable Historian Fund of knowledge: Yes below average Intelligence Estimate: Below Average Judgment: Limited Insight: Minimal Results - Drug Levels and Toxicology Drug Levels and Toxicology: Drug Levels and Toxicity 12/11/18 12/11/18 21:42 21:48 Urine Opiates Screen Negative Acetaminophen < 10 L Ur Barbiturates Screen Negative Ur Phencyclidine Scrn Negative Ur Amphetamines Screen Negative U Benzodiazepines Scrn Negative Urine Cocaine Screen Negative U Marijuana (THC) Screen Negative Ethyl Alcohol < 10 - Labs Labs: Laboratory Last Values WBC 13.1 K/mcL (4.3-11.1) H 12/11/18 21:42 RBC 4.39 M/mcL (4.19-5.50) 12/11/18 21:42 Hgb 13.2 g/dL (12.9-16.9) 12/11/18 21:42 Hct 39.2 % (37.5-50.1) 12/11/18 21:42 MCV 89.3 fL (83.0-100.0) 12/11/18 21:42 MCH 30.1 pg (28.0-33.3) 12/11/18 21:42 MCHC 33.7 g/dL (31.6-35.5) 12/11/18 21:42 RDW 12.5 % (11.5-14.5) 12/11/18 21:42 Plt Count 283 K/mcL (140-400) 12/11/18 21:42 MPV 10.4 fL (9.4-12.4) 12/11/18 21:42 Immature Gran % 1.5 % (0-4) 12/11/18 21:42 Seg Neutrophils % 62.3 % 12/11/18 21:42 Lymphocytes % 23.6 % 12/11/18 21:42 Monocytes % 9.1 % 12/11/18 21:42 Eosinophils % 2.7 % 12/11/18 21:42 Basophils % 0.8 % 12/11/18 21:42 Neutrophils # 8.2 K/mcL (1.6-8.9) 12/11/18 21:42 Lymphocytes # 3.1 K/mcL (0.6-4.6) 12/11/18 21:42 Monocytes # 1.2 K/mcL (0.0-1.3) 12/11/18 21:42 Eosinophils # 0.4 K/mcL (0.0-0.6) 12/11/18 21:42 Basophils # 0.1 K/mcL (0.0-0.2) 12/11/18 21:42 Sodium 137 mEq/L (136-145) 12/11/18 21:42 Potassium 3.7 mEq/L (3.5-5.1) 12/11/18 21:42 Chloride 105 mEq/L (98-107) 12/11/18 21:42 Carbon Dioxide 23 mEq/L (23-29) 12/11/18 21:42 BUN 11 mg/dL (6-20) 12/11/18 21:42 Creatinine 0.84 mg/dL (0.70-1.30) 12/11/18 21:42 Est GFR ( Amer) > 60 (> 60) 12/11/18 21:42 Est GFR (Non-Af Amer) > 60 (> 60) 12/11/18 21:42 BUN/Creatinine Ratio 13 (6-26) 12/11/18 21:42 Glucose 112 mg/dL (70-105) H 12/11/18 21:42 Calculated Osmolality 284 (280-300) 12/11/18 21:42 Calcium 9.0 mg/dL (8.6-10.3) 12/11/18 21:42 Urine Color Yellow (Yellow) 12/11/18 21:32 Urine Clarity Clear (Clear) 12/11/18 21:32 Urine pH 7.0 pH Units (5.0-8.0) 12/11/18 21:32 Ur Specific Blackwell 1.026 (1.010-1.025) H 12/11/18 21:32 Urine Protein Trace mg/dL (Neg-Trace) 12/11/18 21:32 Urine Glucose (UA) Normal mg/dL (Normal) 12/11/18 21:32 Urine Ketones Negative mg/dL (Negative) 12/11/18 21:32 Urine Blood Negative (Negative) 12/11/18 21:32 Urine Nitrite Negative (Negative) 12/11/18 21:32 Urine Bilirubin Negative (Negative) 12/11/18 21:32 Urine Urobilinogen Normal mg/dL (Normal) 12/11/18 21:32 Ur Leukocyte Esterase Negative (Negative) 12/11/18 21:32 Salicylates < 2.5 mg/dL (15.0-30.0) L 12/11/18 21:42 Urine Opiates Screen Negative ng/mL (Dwjaua=840) 12/11/18 21:48 Ur Buprenorphine Scrn Negative ng/mL (Cutoff=5) 12/11/18 21:48 Acetaminophen < 10 mcg/mL (10-20) L 12/11/18 21:42 Ur Barbiturates Screen Negative ng/mL (Susbik=228) 12/11/18 21:48 Ur Phencyclidine Scrn Negative ng/mL (Cutoff=25) 12/11/18 21:48 Ur Amphetamines Screen Negative ng/mL (Qsxfhh=9096) 12/11/18 21:48 U Benzodiazepines Scrn Negative ng/mL (Rraqyy=235) 12/11/18 21:48 Urine Cocaine Screen Negative ng/mL (Cutoff= 300) 12/11/18 21:48 U Marijuana (THC) Screen Negative ng/mL (Cutoff = 50) 12/11/18 21:48 Ur Drug Screen Interp See Below 12/11/18 21:48 Ethyl Alcohol < 10 mg/dL (Less than 10) 12/11/18 21:42 Assessment and Plan (1) Suicidal ideation Current visit: Yes Status: Acute Plan: Admit inpatient for safety and stabilization, Close observation, Encourage participation in unit milieu Risks, benefits, side effects, alternatives discussed w/pt: Yes Patient agreeable to treatment: Yes Plans for Post Hospital Care: Home Estimated Length of Stay (Days): 1 (2) Anxiety Current visit: No Status: Acute Plan: Admit inpatient for safety and stabilization, Close observation, Suicide Precautions per unit protocol, Encourage participation in unit milieu Plans for Post Hospital Care: Home (3) Bipolar disorder, most recent episode depressed Current visit: No Status: Acute Plan: Admit inpatient for safety and stabilization, Close observation, Suicide Precautions per unit protocol, Encourage participation in unit milieu Plans for Post Hospital Care: Home (4) Depression Current visit: No Status: Acute Plan: Admit inpatient for safety and stabilization, Close observation, Suicide Precautions per unit protocol, Encourage participation in unit milieu Plans for Post Hospital Care: Home Qualifiers: Qualified Code(s): F32.89 - Other specified depressive episodes - Attending Attestation I examined this patient and my medical decision-making was reviewed with the R bob Physician. I agree with the documented findings, disposition and treatment plan as described except to the extent set forth below. Please see this specifications writer's separate H&P for additional information.
[2018-12-12] MEDS: risperiDONE 1 MG TABLET PO SCH ×2 (15:43→20:14)
[2018-12-12] MEDS: Divalproex (12 HR) 500 MG TABLET PO SCH (15:43)
[2018-12-12] MEDS ORDERED: Divalproex (12 HR) 500 MG TABLET PO SCH (21:00)
[2018-12-13] MEDS: Divalproex (12 HR) 500 MG TABLET PO SCH (08:41)
[2018-12-13] MEDS: risperiDONE 1 MG TABLET PO SCH (08:42)
[2018-12-13 08:45] VITALS: BP 113/79
[2018-12-13] MEDS ORDERED: Loratadine 10 MG TABLET PO SCH (09:00)
--- NOTE | 2018-12-13 09:38 | Discharge Summary ---
Date of Encounter: 12/13/18 Time of Encounter: 09:15 Diagnosis - Discharge Diagnosis (1) Chronic schizophrenia Priority: Primary Status: Chronic Comments: Plan: Client referred to [facility] for safety and stabilization, continue home meds Risks, benefits, side effects, alternatives discussed w/pt: Yes Patient agreeable to treatment: Yes Plans for Post Hospital Care: discharge to [facility] (2) Developmental delay, moderate Status: Chronic Medications - Discharge Medications Cetirizine HCl [Zyrtec] 10 mg PO HS 07/05/18 [History] Esomeprazole Magnesium [Nexium] 40 mg PO QAM 07/05/18 [History] Lisinopril [Zestril] 5 mg PO QAM 07/05/18 [History] Atorvastatin [Lipitor] 10 mg PO HS 10/08/18 [History] Divalproex Sodium 1,000 mg PO HS 10/08/18 [History] Divalproex Sodium 500 mg PO QAM 10/08/18 [History] Aripiprazole Lauroxil [Aristada] 662 mg IM Q4W #1 suser.syr 10/10/18 [Rx] Doxepin [Sinequan] 25 - 50 mg PO HS PRN 12/11/18 [History] ARIPiprazole [Abilify] 5 mg PO HS 12/12/18 [History] Albuterol Sulfate [Ventolin Hfa] 2 puff IH Q6H PRN 12/12/18 [History] Cholecalciferol (Vitamin D3) [Vitamin D3] 2,000 unit PO QAM 12/12/18 [History] Hydrocortisone/Pramoxine [Hydrocortisone-Pramoxine Cream] 1 appl TP TID PRN 12/12/18 [History] Nicotine Gum [Nicorette gum] 2 mg BC AD PRN 12/12/18 [History] PARoxetine HCl [Paroxetine HCl] 20 mg PO HS 12/12/18 [History] Prazosin [Minipress] 1 mg PO HS PRN 12/12/18 [History] Allergy/AdvReac Type Severity Reaction Status Date / Time No Known Allergies Allergy Verified 12/12/18 20:33 Results Procedures and tests throughout hospitalization: Completed Lab Orders Category Date Time Status Acetaminophen Stat Lab 12/11/18 21:42 Completed Basic Metabolic Panel Stat Lab 12/11/18 21:42 Completed Complete Blood Count [HEME] Stat Lab 12/11/18 21:42 Completed Drug Screen, Urine [UCHEM] Stat Lab 12/11/18 21:48 Completed Ethanol Stat Lab 12/11/18 21:42 Completed Salicylate Stat Lab 12/11/18 21:42 Completed Urinalysis reflex Microscopic [URIN] Stat Lab 12/11/18 21:32 Completed Provider Date of admission: 12/12/18 04:39 Primary care physician: PCP NONE Discharging clinician: Yoel Beckwith Psychiatry Exam - Constitutional Vitals: Temp Pulse Resp BP Pulse Ox 97.5 F L 100 16 113/79 98 12/13/18 08:44 12/13/18 08:44 12/13/18 08:44 12/13/18 08:44 12/13/18 08:44 General appearance: well-groomed, well-nourished, obese - Musculoskeletal Gait: slow Station: stooped, relaxed Strength & Tone: normal for patient - Psychiatric Patient Orientation: Yes Person, Yes Time, Yes Place, Yes Circumstance Level of alertness: Alert Behavior: calm, cooperative Psychomotor activity: Normal Eye Contact: Maintains Eye Contact Mood Description: Euphoric, Other (Excited and happy. ) Patient description of mood: Excited for going to [facility] Affect description: congruent with mood Speech Volume: Normal Speech pattern: normal rhythm, normal tone, fluent, clear, coherent, slowed Language & Vocabulary: consistent with education, difficulty finding words Thought Process: Intact, Logical, Linear, Slowed Thinking Thought Content: Yes Intact Perceptual Disturbances: No Reacting to internal stimuli, No Auditory hallucinations, No Visual hallucinations Attention Span Ability: Capable of Sustained Attention Memory Description: Grossly Intact Patient Reliability: Questionable Historian Fund of knowledge: Yes below average Intelligence Estimate: Below Average Judgment: Fair Insight: Partial Hospital Course Hospital course: Mr. Bass is a 28 year old male who was admitted from the ED for SI. He has extensive history of admissions to for various mental health issues. HE has a preious suicide attempt via hanging but was unsuccessful. Client has hx of bipolar, schizophrenia and PTSD. He is also MRDD and is linked to services through the [email or web address] system, and live in a senior care with live-in staff. Client became suicidal because he was "stressed out" about finances and doing his chores, and he experienced racing thought from this. Client believes he is h eathy but he is obese with HTN, hyperlipidemia, pre-diabetes, acid-reflux. Client takes multiple mental health medications including Risperdal 4 mg PO BID, a long acting Abilify injection (last dose unknown), and Depakote 500mg PO QAM and 1000mg PO HS. Client was well behaved and cooparative on unit and it is suspected he needed a change in scenery more that treatment. Considered adding antidepressant during stay however the morning of discharge he was in a much better mood and this seemed unnecessary. Client denied SI/HI at time of discharge and was excited to be released to [facility]. Time spent discussing smoking cessation with patient: 3 to 10 minutes Does patient wish to continue nicotine replacement upon disc: No (He denies all tobacco use. ) - Time Spent with Patient Total time spent providing and/or coordinating discharge services: Greater than 30 minutes Assessment and Plan - Patient/Caregiver Discharge Instructions Activity: resume usual activities as tolerated Diet: regular diet - Follow up Plan Follow up with: Mimi Hodges CNP [Advanced Practice Nurse] - 05/14/19 1:00 pm (You have an appointment scheduled with this provider on Tuesday, May 14, 2019 at 1:00 PM. Please keep all of your healthcare providers informed of any changes in your medications, treatments or medical conditions. Please contact the office at the number above at least 24 hours in advance if you are unable to keep this appointment. ) Maddie Becker CNP [Advanced Practice Nurse] - 03/18/19 9:00 am (You have an appointment scheduled with this provider on Monday, March 18, 2019 at 9:00 AM. Please keep all of your healthcare providers informed of any changes in your medications, treatments or medical conditions. Please contact the office at the number above at least 24 hours in advance if you are unable to keep this appointment. ) Irma Jose MD [Partnered Physician] - 12/23/18 9:45 am (You have an appointment scheduled with this provider on Sunday, December 23, 2018 at 9:45 AM. Please keep all of your healthcare providers informed of any changes in your medications, treatments or medical conditions. Please contact the office at the number above at least 24 hours in advance if you are unable to keep this appointment. ) [facility] [Outside] - 12/16/18 10:00 am (You have an appointment scheduled with Jordana Naveen on Sunday, December 16, 2018 at 10:00 AM and on Sunday, December 23, 2018 at 11:00 AMfor Counseling and Case Management. You have an appointment scheduled for Monday, January 14, 2019 at 4:10 PM with Lennox Braun for medication management. Please contact the office at least 24 hours in advance if you are unable to keep your appointment(s). ) Functional capacity at discharge: independent ambulation Overall status at discharge: patient is back to baseline Disposition: Transfer Inpatient Rehab Fac Quality - Multiple Antipsychotics Patient discharged on 2 or more antipsychotic medications: No - Justification Documentation of: No documentation of justification - Attending Attestation I examined this patient and my medical decision-making was reviewed with the Resident Physician. I agree with the documented findings, disposition and treatment plan as described except to the extent set forth below. Client in much better spirits this morning. Good eye contact. More conversant. Reports a good mood. Denies any further SI, intent, or plan. Slept well last night and client feels restorative sleep is what he really needed. Accepted by [facility] as they are familiar with client and willing to take him sight unseen. Client requested a [facility] disposition and is happy about discharge. Total time spent with client greater than 30 minutes. Client was educated on his diagnosis and the benefits, side effects and risks of treatment and alternative treatment options and was monitored for responsiveness and adverse side effects. Anxiety, mood and interest improved. Thoughts of self-harm subsided. Client is thinking clearly, good judgment and full insight. Client was able to attend both individual and group therapy sessions as well as meeting with psychiatrist daily. The client was educated primarily by verbal means about their diagnosis and manifestation in their life. The option for treatment including group and individual therapy programming was offered to the patient in the use of medications with all their potential risks, benefits, and side effects were discussed with the patient at length. The patient was given the opportunity to ask questions and was noted to participate in the treatment in the planning process. The patient felt ready and eager to be discharged from the inpatient psychiatric unit to continue on with treatment as an outpatient. The patient agreed that he is safe for this disposition. The patient was considered to be able to participate in informed consent and decision making with respect to medical, legal, and financial issues of the time of discharge. At the time of discharge the patient adamantly denied any concerns for lethality including suicidal or homicidal thoughts ideations or plans and was future oriented toward ongoing mental health care. Procedures - Procedures Procedures: Crisis Stabilization
== END 2018-12-13 14:30 | DRG 750 ==
LOC: EMEROOARM 21:19 → 1ANU 12-12 04:39
PROVIDERS: ADMIT Psychiatry & Neurology Psychiatry; ATTEND Psychiatry & Neurology Psychiatry